=== PATIENT | male | born 1960 | race Caucasian/White ===

== ENCOUNTER 2019-04-13 14:33 | Inpatient (IN) | payer MEDICAID ==
[~2019-04-13] VITALS: Ht 172.7 cm; Wt 109.1 kg
[~2019-04-13 14:33] MED LIST: ACET-2119 PO; BUPR150T8 PO; CLON-371 PO; DULO-31 PO; FURO80TA87 PO; GABA600T13 PO; INSU100C10 SQ; LANTUS SUBCUT; LEVO88TA2 PO; LISI-600 PO; METF500T20 PO; METH-603 PO; METO-467 PO; PER10325T PO; SAXA5TAB PO; SERT50TA PO; SIMV-42 PO; SPIR50TA5 PO; TERA2CAP4 PO; TRAZ150T78 PO
[2019-04-13] MEDS ORDERED: TETanus/Pertussis (Acell)/Diphther VAC/PF (Tdap-Adult) 0.5ml syringe IM ONE (15:40)
[2019-04-13] MEDS ORDERED: normal saline 1000ML IV soln IVB ONE (15:40)
[2019-04-13] MEDS ORDERED: piperacillin/tazo 3.375gm/50ml 50 ML IV ONE (15:40)
[2019-04-13 16:26] LABS: BASOPHILS # (AUTO) 0.1 X10'3 (0-0.2); BASOPHILS % (AUTO) 0.6 % (0-1); EOSINOPHILS % (AUTO) 0.3 % (0-6); HEMOGLOBIN 11.5 g/dl (14.0-17.9); LYMPHOCYTES # (AUTO) 1.2 X10'3 (1.1-4.8); LYMPHOCYTES % (AUTO) 10.2 % (21-51); MEAN CORPUSCULAR HEMOGLOBIN 29.9 PG (27.0-31.0); MEAN CORPUSCULAR HGB CONC 33.7 g/dL (33.0-36.5); MEAN CORPUSCULAR VOLUME 88.7 FL (78-98); MEAN PLATELET VOLUME 7.4 FL (7.4-10.4); MONOCYTES # (AUTO) 1.1 X10'3 (0-0.9); MONOCYTES % (AUTO) 8.9 % (2-12); NEUTROPHILS # (AUTO) 9.5 X10'3 (1.8-7.7); PLATELET COUNT 262 X10'3 (140-440); RED BLOOD COUNT 3.84 X10'6 (4.70-6.10); RED CELL DISTRIBUTION WIDTH 12.9 % (11.5-14.5); WHITE BLOOD COUNT 11.8 X10'3 (4.5-11.0)
[2019-04-13 16:30] LABS: PARTIAL THROMBOPLASTIN TIME 31 SECONDS (22-32)
[2019-04-13 16:32] LABS: ALANINE AMINOTRANSFERASE 20 U/L (12-78); ALBUMIN 3.1 G/DL (3.4-5.0); ALBUMIN/GLOBULIN RATIO 0.6 (1.1-1.5); ALKALINE PHOSPHATASE 72 IU/L (46-116); ANION GAP 9 (8-16); ASPARTATE AMINO TRANSFERASE 18 U/L (10-37); BILIRUBIN,TOTAL 0.7 MG/DL (0.1-1.0); BLOOD UREA NITROGEN 30 MG/DL (7-18); BUN/CREATININE RATIO 17.1 (5.4-32.0); CALCIUM 9.2 MG/DL (8.5-10.1); CHLORIDE 95 MMOL/L (99-107); CREATININE 1.75 MG/DL (0.60-1.10); GLUCOSE 208 MG/DL (70-104); POTASSIUM 4.3 MMOL/L (3.5-5.1); SODIUM 131 MMOL/L (135-145); TOTAL CARBON DIOXIDE 27.5 MMOL/L (24-32); TOTAL PROTEIN 8.1 G/DL (6.4-8.2); eGFR 40 ML/MIN
[2019-04-13] MEDS ORDERED: HYDROcodone/acetaminophen 5mg/325mg tablet PO PRN (18:00)
[2019-04-13] MEDS ORDERED: magnesium 2GM in 50ml NS 50 ML IV PRN (18:00)
[2019-04-13] MEDS ORDERED: acetaminophen 325mg tablet PO PRN (18:00)
[2019-04-13] MEDS ORDERED: magnesium 4gm in 100ml NS 100 ML IV PRN (18:00)
[2019-04-13] MEDS ORDERED: morphine 2 MG/ML inj. syringe IV PRN (18:00)
[2019-04-13] MEDS ORDERED: potassium CL 10mEq/100ml bag 100 ML IV PRN ×2 (18:00)
[2019-04-13] MEDS ORDERED: ondansetron/PF 4mg/2ml inj IV PRN (18:00)
[2019-04-13] MEDS ORDERED: potassium Cl 20 mEq SR tablet PO PRN ×2 (18:00)
[2019-04-13] MEDS ORDERED: magnesium Cl slow-release 64mg tablet PO PRN (18:00)
[2019-04-13] MEDS ORDERED: OXYC-511 PO (18:09)
[2019-04-13] MEDS ORDERED: INSU100V9 SQ (18:09)
[2019-04-13] MEDS ORDERED: METO50TA16 PO (18:09)
[2019-04-13] MEDS ORDERED: LISI-604 PO (18:09)
[2019-04-13] MEDS ORDERED: DULO30CA52 PO (18:09)
[2019-04-13] MEDS ORDERED: BUPR150T6 PO (18:09)
[2019-04-13] MEDS ORDERED: GABA800T11 PO (18:09)
[2019-04-13] MEDS ORDERED: FURO40TA4 PO (18:09)
[2019-04-13] MEDS ORDERED: INSU100V43 SQ (18:09)
[2019-04-13] MEDS ORDERED: CLON-568 PO (18:09)
[2019-04-13] MEDS ORDERED: METF-950 PO (18:09)
[2019-04-13] MEDS: normal saline 1000ml 1,000 ML IV SCH (18:32)
--- NOTE | 2019-04-13 19:07 | NUR ---
Patient is laying comfortably on gurney, reports left foot pain 7/10. He just finished eating taco ortiz.
[2019-04-13] MEDS ORDERED: SERT100T PO (19:13)
[2019-04-13] MEDS: vancomycin/NS 1 GM ADD-VANTAGE 250 ML IV SCH (20:22)
[2019-04-13] MEDS: docusate sod 100mg capsule PO SCH (20:22)
--- NOTE | 2019-04-13 20:42 | NUR ---
pt urinated 700ml of urine.
[2019-04-14] VITALS: BP 116/69
[2019-04-14] MEDS: piperacillin/tazo 4.5gm/100ml 100 ML IV SCH ×3 (00:43→15:26)
[2019-04-14 05:03] LABS: BASOPHILS % (AUTO) 0.2 % (0-1); EOSINOPHILS # (AUTO) 0.1 X10'3 (0-0.9); HEMATOCRIT 33.7 % (42.0-52.0); HEMOGLOBIN 11.6 g/dl (14.0-17.9); LYMPHOCYTES # (AUTO) 1.5 X10'3 (1.1-4.8); LYMPHOCYTES % (AUTO) 19.1 % (21-51); MEAN CORPUSCULAR HEMOGLOBIN 30.3 PG (27.0-31.0); MEAN CORPUSCULAR HGB CONC 34.3 g/dL (33.0-36.5); MEAN CORPUSCULAR VOLUME 88.4 FL (78-98); MEAN PLATELET VOLUME 7.4 FL (7.4-10.4); MONOCYTES # (AUTO) 0.7 X10'3 (0-0.9); MONOCYTES % (AUTO) 9.5 % (2-12); NEUTROPHILS # (AUTO) 5.4 X10'3 (1.8-7.7); NEUTROPHILS % (AUTO) 70.2 % (42-75); PLATELET COUNT 239 X10'3 (140-440); RED BLOOD COUNT 3.81 X10'6 (4.70-6.10); RED CELL DISTRIBUTION WIDTH 12.7 % (11.5-14.5); WHITE BLOOD COUNT 7.7 X10'3 (4.5-11.0)
[2019-04-14 05:07] LABS: ALBUMIN 2.6 G/DL (3.4-5.0); ANION GAP 8 (8-16); BLOOD UREA NITROGEN 22 MG/DL (7-18); BUN/CREATININE RATIO 15.2 (5.4-32.0); CALCIUM 8.8 MG/DL (8.5-10.1); CHLORIDE 102 MMOL/L (99-107); CREATININE 1.45 MG/DL (0.60-1.10); GLUCOSE 166 MG/DL (70-104); MAGNESIUM 1.6 MG/DL (1.5-2.4); POTASSIUM 3.9 MMOL/L (3.5-5.1); SODIUM 138 MMOL/L (135-145); TOTAL CARBON DIOXIDE 28.1 MMOL/L (24-32); eGFR 50 ML/MIN
[2019-04-14 05:25] LABS: HEMOGLOBIN A1C 8.1 % (4.5-6.2)
--- NOTE | 2019-04-14 06:29 | NUR ---
Problems reprioritized. Patient report given, questions answered & plan of care reviewed with Linden LEMA.
--- NOTE | 2019-04-14 06:37 | NUR ---
At change of shift patient in room throwing his BSC into the hallway and upset that he is in pain and states "I haven't had my pain medication." eMAR records that patient had MS at 0400 by NOC shift RN. Patient wants to talk to administration, charge nurse Pao LEMA notified. Patient educated on the fact his hospitalist today will review his home medications and continue what he takes if needed. Patient is very impatient and makes comments that he will do this for that, bargains with staff and is noncompliant. [place] given for pain at this time.
--- NOTE | 2019-04-14 06:57 | NUR ---
Patient in room COURT 346. I have received report from PITA Cadena and had the opportunity to ask questions and assume patient care.
[2019-04-14 07:00] VITALS: BP 145/90
--- NOTE | 2019-04-14 07:22 | NUR ---
Patient in bed on right side lying position very tearful and crying and shivering c/o severe pain. Patient reports that he normally takes "20mg of percocet and then 6 hours later 20mg of methadone" but has not been able to receive here. Received from report that patient had been non compliant and would not review meds with noc RN. Patient reports that the [place] 5/325 1 tab has not been effective. Dr Ghosh called twice and both times calls were forwarded to voicemail. Dr. Ghosh also paged through paging system for hospitalists.
[2019-04-14] MEDS ORDERED: oxyCODONE/APAP 10/325mg tablet PO ONE ×3 (07:40→09:00)
[2019-04-14] MEDS: vancomycin/NS 1 GM ADD-VANTAGE 250 ML IV SCH (07:55)
--- NOTE | 2019-04-14 07:59 | NUR ---
Dr. Ghosh returned phone call and ordered to have percocet 10/325mg 1 tab po give now and if another dose is needed in 1 hr to give another dose. Let patient know and patient stated, " no fuck that. I'm getting out of here." Patient then agreed he will take it and stated, " you better be back here in one hour or i'm leaving." Patient refusing to have physical assessment completed.
[2019-04-14] MEDS: docusate sod 100mg capsule PO SCH ×2 (08:00→21:32)
[2019-04-14] MEDS: K and/or MAG REPLACEMENT MC SCH (08:00)
--- NOTE | 2019-04-14 08:09 | NUR ---
Patient now stating that he " the Dr better give me a damn good reason as to why I'm here or I'm leaving." Dr. Ghosh notified.
--- NOTE | 2019-04-14 08:12 | NUR ---
Patient refusing to have physical assessment done.
[2019-04-14] MEDS ORDERED: DULO60CA65 PO (08:31)
[2019-04-14] MEDS ORDERED: TIZA2TAB5 PO (08:31)
[2019-04-14] MEDS ORDERED: METH-603 PO (08:31)
--- NOTE | 2019-04-14 08:45 | NUR ---
Patient stating to call [facility] to verify patient's home meds. [facility] was called and meds reviewed. Per [facility] pharmacy patient takes Percocet 1 tab 10/325mg TID prn and Methadone 10 mg 1 tab TID PRN. Patient stating they are incorrect and wanting to call again. patient called again and now stating he Addendum: 04/14/19 at 0904 by Linden Donovan RN He is now stating he is taking "2 percocet at once and then 8hours from there I take 2 methadone's, but it's practically the same thing." Educated patient we can only give as ordered and that they are two different medications therefore it is not the same thing. Patient agreed.
[2019-04-14] MEDS ORDERED: clonazePAM 1mg tablet PO PRN (10:15)
[2019-04-14] MEDS ORDERED: buproprion 150mg XL (24-hour) tablet PO SCH (10:15)
--- NOTE | 2019-04-14 11:01 | NUR ---
DM consult: Pt with A1c 8.1 with reported insulin and Metformin in home meds per [facility]. Pt admit with DM foot ulcer to r/o osteomyelitis and currently c/o pain 7-10 per documentation. Per physical assessment pt resistive to care and agitated per RN notes. Pt would benefit from protein and DM education prior to discharge once stable to compliant with care. Will continue to follow. Addendum: 04/14/19 at [address] Amended: Links added.
[2019-04-14] MEDS: gabapentin 400mg capsule PO SCH ×2 (12:16→21:30)
[2019-04-14] MEDS: duloxetine 30mg CAPSULE.DR PO SCH (12:17)
[2019-04-14] MEDS: furosemide 40mg tablet PO SCH (12:17)
[2019-04-14] MEDS: methadone 10mg tablet PO SCH ×2 (12:17→21:32)
[2019-04-14 12:51] VITALS: BP 98/54
[2019-04-14] MEDS ORDERED: glucagon, human recombinant 1mg kit SUBCUT PRN (12:55)
[2019-04-14] MEDS ORDERED: dextrose ORAL solution 15 GM/59 ML bottle PO PRN ×2 (12:55)
[2019-04-14] MEDS ORDERED: MESSAGE TO PHARMACY PO ONE (12:55)
[2019-04-14] MEDS ORDERED: dextrose 50%-water 50ml dispensing syringe IV PRN ×2 (12:55)
[2019-04-14] MEDS: oxyCODONE/APAP 10/325mg tablet PO PRN (15:29)
[2019-04-14 18:00] VITALS: BP 116/79
--- NOTE | 2019-04-14 18:34 | NUR ---
Problems reprioritized. Patient report given, questions answered & plan of care reviewed with PITA BARNARD.
--- NOTE | 2019-04-14 18:35 | NUR ---
Patient in room COURT 346. I have received report from PITA Marino and had the opportunity to ask questions and assume patient care. Addendum: 04/14/19 at 2 by Ned Sosa RN Patient in room COURT 346. I have received report from PITA Cheatham and had the opportunity to ask questions and assume patient care.
[2019-04-14] MEDS: insulin Lispro (HumaLOG) vial - multi-dose SQ SCH (18:43)
[2019-04-14] MEDS: insulin glargine (Lantus) pen - multi-dose SQ SCH (21:27)
[2019-04-14] MEDS: buPROPion SR 150mg tablet PO SCH (21:30)
[2019-04-14] MEDS: Terazosin 1mg capsule PO SCH (21:31)
[2019-04-14] MEDS: atorvastatin 10mg tablet PO SCH (21:31)
[2019-04-14] MEDS: cyclobenzaprine 10mg tablet PO SCH (21:32)
[2019-04-14] MEDS: lactobacillus rhamnosus 10,000 MMU CELLS/CAPSULE PO SCH (21:32)
[2019-04-14] MEDS: metoprolol tartrate 50mg tablet PO SCH (21:32)
[2019-04-15] VITALS: BP 107/68
[2019-04-15] MEDS: piperacillin/tazo 4.5gm/100ml 100 ML IV SCH ×3 (00:09→15:24)
[2019-04-15] MEDS: oxyCODONE/APAP 10/325mg tablet PO PRN ×2 (00:11→15:22)
[2019-04-15 04:08] LABS: BASOPHILS % (AUTO) 0.3 % (0-1); EOSINOPHILS # (AUTO) 0.1 X10'3 (0-0.9); EOSINOPHILS % (AUTO) 1.5 % (0-6); HEMATOCRIT 35.3 % (42.0-52.0); HEMOGLOBIN 11.8 g/dl (14.0-17.9); LYMPHOCYTES # (AUTO) 1.7 X10'3 (1.1-4.8); LYMPHOCYTES % (AUTO) 23.3 % (21-51); MEAN CORPUSCULAR HEMOGLOBIN 29.8 PG (27.0-31.0); MEAN CORPUSCULAR HGB CONC 33.4 g/dL (33.0-36.5); MEAN CORPUSCULAR VOLUME 89.2 FL (78-98); MEAN PLATELET VOLUME 7.6 FL (7.4-10.4); MONOCYTES # (AUTO) 0.6 X10'3 (0-0.9); MONOCYTES % (AUTO) 7.8 % (2-12); NEUTROPHILS # (AUTO) 4.8 X10'3 (1.8-7.7); NEUTROPHILS % (AUTO) 67.1 % (42-75); PLATELET COUNT 257 X10'3 (140-440); RED BLOOD COUNT 3.95 X10'6 (4.70-6.10); RED CELL DISTRIBUTION WIDTH 12.9 % (11.5-14.5); WHITE BLOOD COUNT 7.2 X10'3 (4.5-11.0)
[2019-04-15 04:20] LABS: ALBUMIN 2.7 G/DL (3.4-5.0); ANION GAP 7 (8-16); BLOOD UREA NITROGEN 16 MG/DL (7-18); BUN/CREATININE RATIO 12.4 (5.4-32.0); CALCIUM 9.2 MG/DL (8.5-10.1); CHLORIDE 103 MMOL/L (99-107); CREATININE 1.29 MG/DL (0.60-1.10); GLUCOSE 115 MG/DL (70-104); MAGNESIUM 1.6 MG/DL (1.5-2.4); POTASSIUM 4.3 MMOL/L (3.5-5.1); SODIUM 142 MMOL/L (135-145); TOTAL CARBON DIOXIDE 31.8 MMOL/L (24-32); eGFR 57 ML/MIN
[2019-04-15] MEDS: normal saline 1000ml 1,000 ML IV SCH (05:56)
--- NOTE | 2019-04-15 06:30 | NUR ---
Patient in room COURT 346. I have received report from Ned and had the opportunity to ask questions and assume patient care.
[2019-04-15] MEDS: furosemide 40mg tablet PO SCH (07:49)
[2019-04-15] MEDS: lactobacillus rhamnosus 10,000 MMU CELLS/CAPSULE PO SCH ×2 (07:50→20:54)
[2019-04-15] MEDS: lisinopril 5mg tablet PO SCH (07:50)
[2019-04-15] MEDS: duloxetine 30mg CAPSULE.DR PO SCH ×2 (07:51→08:00)
[2019-04-15] MEDS: docusate sod 100mg capsule PO SCH ×2 (07:51→20:54)
[2019-04-15] MEDS: buPROPion SR 150mg tablet PO SCH ×2 (07:51→20:53)
[2019-04-15] MEDS: spironolactone 50 MG tablet PO SCH (07:51)
[2019-04-15 07:56] VITALS: BP 101/62
[2019-04-15] MEDS: K and/or MAG REPLACEMENT MC SCH (08:00)
[2019-04-15] MEDS: gabapentin 400mg capsule PO SCH ×3 (08:00→20:53)
[2019-04-15] MEDS: methadone 10mg tablet PO SCH ×3 (08:00→20:54)
[2019-04-15] MEDS: cyclobenzaprine 10mg tablet PO SCH ×2 (08:00→20:00)
[2019-04-15] MEDS: metoprolol tartrate 50mg tablet PO SCH ×2 (08:00→20:54)
[2019-04-15] MEDS: sertraline 50mg tablet PO SCH (08:00)
--- NOTE | 2019-04-15 10:12 | NUR ---
From 0600 to 0750 there was meditech down time. Cymbalta 60mg, gabapentin, methadone and sertraline for 0800 were administered and charted on paper.
[2019-04-15 11:40] VITALS: BP 115/60
[2019-04-15] MEDS: insulin Lispro (HumaLOG) vial - multi-dose SQ SCH ×2 (13:15→20:00)
--- NOTE | 2019-04-15 13:57 | NUR ---
Witnessed 8 units of Humalog administered to patient with SN Avtar and PITA Nogueira.
--- NOTE | 2019-04-15 18:39 | NUR ---
Problems reprioritized. Patient report given, questions answered & plan of care reviewed with Bette RN.
--- NOTE | 2019-04-15 18:40 | NUR ---
Student documentation: I have reviewed and agree with all interventions, assessments performed and documented by SN Avtar. Student Medication Administration: For this medication-pass time frame, all medication were reviewed, dispensed, administered and documented per hospital policy by SN Avtar.
--- NOTE | 2019-04-15 18:59 | NUR ---
Problems reprioritized. Patient report given, questions answered & plan of care reviewed with Pat.
[2019-04-15 19:30] VITALS: BP 100/69
[2019-04-15 20:35] VITALS: BP 110/70
[2019-04-15] MEDS: atorvastatin 10mg tablet PO SCH (20:54)
[2019-04-15] MEDS: Terazosin 1mg capsule PO SCH (20:59)
[2019-04-15] MEDS: insulin glargine (Lantus) pen - multi-dose SQ SCH (21:57)
[2019-04-16] VITALS: BP 105/70
[2019-04-16] MEDS: piperacillin/tazo 4.5gm/100ml 100 ML IV SCH ×3 (00:52→16:42)
[2019-04-16 07:29] LABS: BASOPHILS # (AUTO) 0.1 X10'3 (0-0.2); BASOPHILS % (AUTO) 0.7 % (0-1); EOSINOPHILS # (AUTO) 0.2 X10'3 (0-0.9); EOSINOPHILS % (AUTO) 2.1 % (0-6); HEMATOCRIT 35.1 % (42.0-52.0); HEMOGLOBIN 11.8 g/dl (14.0-17.9); LYMPHOCYTES # (AUTO) 1.8 X10'3 (1.1-4.8); LYMPHOCYTES % (AUTO) 23.2 % (21-51); MEAN CORPUSCULAR HEMOGLOBIN 29.9 PG (27.0-31.0); MEAN CORPUSCULAR HGB CONC 33.7 g/dL (33.0-36.5); MEAN CORPUSCULAR VOLUME 88.6 FL (78-98); MEAN PLATELET VOLUME 7.5 FL (7.4-10.4); MONOCYTES # (AUTO) 0.6 X10'3 (0-0.9); MONOCYTES % (AUTO) 7.5 % (2-12); NEUTROPHILS % (AUTO) 66.5 % (42-75); PLATELET COUNT 268 X10'3 (140-440); RED BLOOD COUNT 3.96 X10'6 (4.70-6.10); WHITE BLOOD COUNT 7.6 X10'3 (4.5-11.0)
[2019-04-16] MEDS ORDERED: VANCOMYCIN LEVEL IV ONE (07:30)
[2019-04-16 07:42] LABS: ALBUMIN 2.7 G/DL (3.4-5.0); ANION GAP 8 (8-16); BLOOD UREA NITROGEN 22 MG/DL (7-18); BUN/CREATININE RATIO 15.2 (5.4-32.0); CALCIUM 9.6 MG/DL (8.5-10.1); CHLORIDE 101 MMOL/L (99-107); CREATININE 1.45 MG/DL (0.60-1.10); GLUCOSE 128 MG/DL (70-104); MAGNESIUM 1.6 MG/DL (1.5-2.4); POTASSIUM 4.2 MMOL/L (3.5-5.1); SODIUM 139 MMOL/L (135-145); TOTAL CARBON DIOXIDE 30.2 MMOL/L (24-32); eGFR 50 ML/MIN
[2019-04-16 07:49] LABS: VANCOMYCIN,TROUGH 30.8 UG/ML (6.0-14.0)
[2019-04-16 08:00] VITALS: BP 116/76
[2019-04-16] MEDS: spironolactone 50 MG tablet PO SCH (08:00)
[2019-04-16] MEDS: lisinopril 5mg tablet PO SCH (08:00)
[2019-04-16] MEDS: duloxetine 30mg CAPSULE.DR PO SCH ×2 (08:00→08:17)
[2019-04-16] MEDS: furosemide 40mg tablet PO SCH (08:00)
[2019-04-16] MEDS: K and/or MAG REPLACEMENT MC SCH (08:00)
[2019-04-16] MEDS: buPROPion SR 150mg tablet PO SCH ×2 (08:16→19:43)
[2019-04-16] MEDS: sertraline 50mg tablet PO SCH (08:16)
[2019-04-16] MEDS: docusate sod 100mg capsule PO SCH ×2 (08:16→19:43)
[2019-04-16] MEDS: gabapentin 400mg capsule PO SCH ×3 (08:16→22:02)
[2019-04-16] MEDS: lactobacillus rhamnosus 10,000 MMU CELLS/CAPSULE PO SCH ×2 (08:16→19:44)
[2019-04-16] MEDS: cyclobenzaprine 10mg tablet PO SCH ×2 (08:17→19:43)
[2019-04-16] MEDS: methadone 10mg tablet PO SCH ×3 (08:17→22:02)
[2019-04-16] MEDS: metoprolol tartrate 50mg tablet PO SCH ×2 (08:36→19:44)
--- NOTE | 2019-04-16 10:42 | NUR ---
TOld by tech that patient was seen chewing tobacco, educated patient on not using this substance in the hospital and he agreed and stated that he didnt have anymore. While doing vitals tech said patients HR was 140, I went to assess the patient and his HR was 77 and he was asymptomatic and stated " I have a chronic arrythmia condition that comes and goes". Patient denies hx of afibb but, states he has been in SVT before. Patient was given metoprolol this am. MD and charge nurse aware of this condition and its stated in his HX in the chart. Patient is currently not on tele per dr lynch. I will address this with her again. Will continue to monitor.
--- NOTE | 2019-04-16 11:14 | NUR ---
PAGER ID: [phone] MESSAGE: just confirming you do not want 346B on tele, hx of SVT and has had elevated HR a few times this shift but, asymptomatic current rate is 77
--- NOTE | 2019-04-16 11:45 | NUR ---
contacted dr morton on behalf of patient day two after consult and he has not seen Kenneth yet so he is getting frustrated. Davina advised me to call so I left Kenneth a message and updated patient.
[2019-04-16] MEDS: insulin Lispro (HumaLOG) vial - multi-dose SQ SCH ×2 (13:37→19:40)
[2019-04-16 18:00] VITALS: BP 173/97
--- NOTE | 2019-04-16 18:36 | NUR ---
Patient in room COURT 346. I have received report from Mack LEMA and had the opportunity to ask questions and assume patient care. patient is sleeping and shows no sign of distress.
[2019-04-16] MEDS: vancomycin/NS 1 GM ADD-VANTAGE 250 ML IV SCH (19:43)
[2019-04-16] MEDS: oxyCODONE/APAP 10/325mg tablet PO PRN (20:00)
[2019-04-16] MEDS: Terazosin 1mg capsule PO SCH (22:01)
[2019-04-16] MEDS: atorvastatin 10mg tablet PO SCH (22:02)
[2019-04-16] MEDS: insulin glargine (Lantus) pen - multi-dose SQ SCH (22:09)
[2019-04-17] VITALS: BP 128/66
[2019-04-17] MEDS: piperacillin/tazo 4.5gm/100ml 100 ML IV SCH ×2 (00:55→08:36)
[2019-04-17] MEDS: normal saline 1000ml 1,000 ML IV SCH (02:56)
[2019-04-17 04:27] LABS: BASOPHILS % (AUTO) 0.3 % (0-1); EOSINOPHILS # (AUTO) 0.2 X10'3 (0-0.9); EOSINOPHILS % (AUTO) 2.2 % (0-6); HEMATOCRIT 34.4 % (42.0-52.0); HEMOGLOBIN 11.7 g/dl (14.0-17.9); LYMPHOCYTES # (AUTO) 1.7 X10'3 (1.1-4.8); LYMPHOCYTES % (AUTO) 24.4 % (21-51); MEAN CORPUSCULAR HEMOGLOBIN 30.1 PG (27.0-31.0); MEAN CORPUSCULAR HGB CONC 33.9 g/dL (33.0-36.5); MEAN CORPUSCULAR VOLUME 88.6 FL (78-98); MEAN PLATELET VOLUME 7.4 FL (7.4-10.4); MONOCYTES # (AUTO) 0.5 X10'3 (0-0.9); MONOCYTES % (AUTO) 7.5 % (2-12); NEUTROPHILS # (AUTO) 4.6 X10'3 (1.8-7.7); NEUTROPHILS % (AUTO) 65.6 % (42-75); PLATELET COUNT 290 X10'3 (140-440); RED BLOOD COUNT 3.89 X10'6 (4.70-6.10); RED CELL DISTRIBUTION WIDTH 12.7 % (11.5-14.5); WHITE BLOOD COUNT 6.9 X10'3 (4.5-11.0)
[2019-04-17 04:46] LABS: ALBUMIN 2.6 G/DL (3.4-5.0); ANION GAP 5 (8-16); BLOOD UREA NITROGEN 24 MG/DL (7-18); BUN/CREATININE RATIO 15.2 (5.4-32.0); CHLORIDE 103 MMOL/L (99-107); CREATININE 1.58 MG/DL (0.60-1.10); GLUCOSE 164 MG/DL (70-104); MAGNESIUM 1.7 MG/DL (1.5-2.4); POTASSIUM 4.4 MMOL/L (3.5-5.1); SODIUM 138 MMOL/L (135-145); TOTAL CARBON DIOXIDE 29.7 MMOL/L (24-32); eGFR 45 ML/MIN
--- NOTE | 2019-04-17 06:33 | NUR ---
Problems reprioritized. Patient report given, questions answered & plan of care reviewed with Marshall LEMA.
--- NOTE | 2019-04-17 06:39 | NUR ---
Patient in room COURT 346. I have received report from Tiarra LEMA and had the opportunity to ask questions and assume patient care.
[2019-04-17 07:00] VITALS: BP 104/57
[2019-04-17] MEDS: K and/or MAG REPLACEMENT MC SCH (08:00)
[2019-04-17] MEDS: duloxetine 30mg CAPSULE.DR PO SCH ×2 (08:00→08:21)
[2019-04-17] MEDS: spironolactone 50 MG tablet PO SCH (08:20)
[2019-04-17] MEDS: docusate sod 100mg capsule PO SCH (08:20)
[2019-04-17] MEDS: vancomycin/NS 1 GM ADD-VANTAGE 250 ML IV SCH (08:20)
[2019-04-17] MEDS: buPROPion SR 150mg tablet PO SCH (08:20)
[2019-04-17] MEDS: sertraline 50mg tablet PO SCH (08:21)
[2019-04-17] MEDS: lisinopril 5mg tablet PO SCH (08:21)
[2019-04-17] MEDS: lactobacillus rhamnosus 10,000 MMU CELLS/CAPSULE PO SCH (08:21)
[2019-04-17] MEDS: cyclobenzaprine 10mg tablet PO SCH (08:21)
[2019-04-17] MEDS: methadone 10mg tablet PO SCH (08:21)
[2019-04-17] MEDS: gabapentin 400mg capsule PO SCH (08:21)
[2019-04-17] MEDS: insulin Lispro (HumaLOG) vial - multi-dose SQ SCH (08:40)
--- NOTE | 2019-04-17 10:58 | NUR ---
Dr. Cooper seen patient, patient wanted to go home. Dr. Cooper said he is okay for patient to go home today and patient will need to come back to the hospital for his surgery on Saturday04/21/19
[2019-04-17 11:00] VITALS: BP 120/77
--- NOTE | 2019-04-17 11:00 | NUR ---
Paged Dr. Edwards to let him know about Dr. Kenneth nicole with patient go home today.
[2019-04-17 11:27] VITALS: BP_SYST 120
[2019-04-17] MEDS: furosemide 40mg tablet PO SCH (11:27)
[2019-04-17] MEDS: metoprolol tartrate 50mg tablet PO SCH (11:27)
[2019-04-17] MEDS: oxyCODONE/APAP 10/325mg tablet PO PRN (11:29)
[2019-04-17] MEDS ORDERED: LACT1CAP26 PO (12:06)
[2019-04-17] MEDS ORDERED: AMOX-422 PO (12:08)
[2019-04-17] MEDS ORDERED: DOXY100C2 PO (12:08)
--- NOTE | 2019-04-17 13:15 | NUR ---
DIABETIC FOOT CARE EDUCATION PROVIDED BY WOUND CARE * Wash your feet daily with lukewarm water and soap. * Dry your feet well, especially between the toes. * Keep the skin moisturized with lotion, but do not apply it between the toes. * Check your feet for blisters, cuts or sores. * Use an emery board to shape your toenails even with the ends of your toes. * Change daily into clean, soft socks or stockings, not too big or too small. * Keep your feet warm and dry. * Preferably wear special padded socks and shoes that fit well. * Never walk barefoot indoors or outdoors. * Examine your shoes everyday for cracks, luis a, nails or anything that could hurt your feet. * Tell your doctor if you find any of these problems or have any concerns after examining your feet. Addendum: 04/17/19 at 1316 by Porsche Quintero RN Amended: Links added.
--- NOTE | 2019-04-17 14:20 | NUR ---
Discharge patient home, discharge instructions given to patient. Patient verbalized understanding of all instructions made. Peripheral IV catheter removed, tip intact. Wound dressing on the left foot changed, wound photo taken with patient's permission. New prescriptions called in to [facility]. Instructed patient to ensure he has all his belongings with him before leaving
[2019-04-17] MEDS ORDERED: piperacillin/tazo 3.375gm/50ml 50 ML IV SCH (16:00)
[2019-04-18] MEDS ORDERED: VANCOMYCIN LEVEL IV ONE (07:30)
== END 2019-04-17 14:20 | disposition home or self-care (01) | DRG 344 ==
LOC: ER 14:34 → ED HOLD 18:22 → SUR 3N 22:05 → CMPBEDREQ 22:42 → SUR 3N 04-16 02:21
PROVIDERS: ADMIT Internal Medicine; ATTEND Hospitalist
PROC: BQ3HYZZ Magnetic Resonance Imaging (MRI) of Left Ankle using Other Contrast (ICD-10-PCS; principal; 2019-04-16)
DX: E11.69 Type 2 diabetes mellitus with other specified complication (principal); M86.8X7 Other osteomyelitis, ankle and foot; N17.9 Acute kidney failure, unspecified; E11.22 Type 2 diabetes mellitus with diabetic chronic kidney disease; E11.621 Type 2 diabetes mellitus with foot ulcer; L03.116 Cellulitis of left lower limb; E11.42 Type 2 diabetes mellitus with diabetic polyneuropathy; E66.01 Morbid (severe) obesity due to excess calories; M60.872 Other myositis, left ankle and foot; L97.529 Non-pressure chronic ulcer of other part of left foot with unspecified severity; B95.62 Methicillin resistant Staphylococcus aureus infection as the cause of diseases classified elsewhere; E11.610 Type 2 diabetes mellitus with diabetic neuropathic arthropathy; E11.65 Type 2 diabetes mellitus with hyperglycemia; N18.9 Chronic kidney disease, unspecified; N40.0 Benign prostatic hyperplasia without lower urinary tract symptoms; F41.8 Other specified anxiety disorders; M54.9 Dorsalgia, unspecified; E78.00 Pure hypercholesterolemia, unspecified; E78.5 Hyperlipidemia, unspecified; E87.1 Hypo-osmolality and hyponatremia; G89.29 Other chronic pain; I12.9 Hypertensive chronic kidney disease with stage 1 through stage 4 chronic kidney disease, or unspecified chronic kidney disease; M17.10 Unilateral primary osteoarthritis, unspecified knee; M21.42 Flat foot [pes planus] (acquired), left foot; Z79.4 Long term (current) use of insulin; Z88.2 Allergy status to sulfonamides; Z68.36 Body mass index [BMI] 36.0-36.9, adult; Z99.3 Dependence on wheelchair; Z79.899 Other long term (current) drug therapy
CPT/HCPCS: 36415; 71045; 73630; 73723; 80048; 80053; 80202; 82948; 83036; 83605; 83735; 84145; 84484; 85025; 85610; 85730; 87040; 87070; 87077; 87081; 87186; 90471; 96365; 99285; G0378; J1815; J2270; J2543; J3370; J7030

== ENCOUNTER 2019-04-21 09:03 | Inpatient (IN) | payer MEDICAID ==
[~2019-04-21] VITALS: Ht 175.3 cm; Wt 109.1 kg
[2019-04-21] VITALS (17 sets, daily range): BP systolic 107–152; BP diastolic 61–92
[~2019-04-21 09:03] MED LIST changes: -ACET-2119 PO; +AMOX-422 PO; +BUPR150T6 PO; -BUPR150T8 PO; -CLON-371 PO; +CLON-568 PO; +DOXY100C2 PO; -DULO-31 PO; +DULO30CA52 PO; +DULO60CA65 PO; -FURO80TA87 PO; -GABA600T13 PO; +GABA800T11 PO; -INSU100C10 SQ; +INSU100V43 SQ; +INSU100V9 SQ; +LACT1CAP26 PO; -LANTUS SUBCUT; -LEVO88TA2 PO; -LISI-600 PO; -METF500T20 PO; -METO-467 PO; +METO50TA16 PO; +OXYC-511 PO; -PER10325T PO; +SERT100T PO; -SERT50TA PO; -SPIR50TA5 PO; +TIZA2TAB5 PO; -TRAZ150T78 PO
[2019-04-21 09:57] LABS: BASOPHILS % (AUTO) 0.5 % (0-1); EOSINOPHILS # (AUTO) 0.1 X10'3 (0-0.9); EOSINOPHILS % (AUTO) 1.5 % (0-6); HEMATOCRIT 36.8 % (42.0-52.0); HEMOGLOBIN 12.6 g/dl (14.0-17.9); LYMPHOCYTES # (AUTO) 1.7 X10'3 (1.1-4.8); MEAN CORPUSCULAR HEMOGLOBIN 30.1 PG (27.0-31.0); MEAN CORPUSCULAR HGB CONC 34.1 g/dL (33.0-36.5); MEAN CORPUSCULAR VOLUME 88.3 FL (78-98); MEAN PLATELET VOLUME 7.5 FL (7.4-10.4); MONOCYTES # (AUTO) 0.5 X10'3 (0-0.9); MONOCYTES % (AUTO) 5.3 % (2-12); NEUTROPHILS # (AUTO) 6.6 X10'3 (1.8-7.7); NEUTROPHILS % (AUTO) 73.7 % (42-75); PLATELET COUNT 325 X10'3 (140-440); RED BLOOD COUNT 4.17 X10'6 (4.70-6.10); RED CELL DISTRIBUTION WIDTH 12.6 % (11.5-14.5)
[2019-04-21 10:12] LABS: ALANINE AMINOTRANSFERASE 35 U/L (12-78); ALBUMIN 3.1 G/DL (3.4-5.0); ALBUMIN/GLOBULIN RATIO 0.6 (1.1-1.5); ALKALINE PHOSPHATASE 184 IU/L (46-116); ANION GAP 7 (8-16); ASPARTATE AMINO TRANSFERASE 21 U/L (10-37); BILIRUBIN,TOTAL 0.3 MG/DL (0.1-1.0); BLOOD UREA NITROGEN 22 MG/DL (7-18); BUN/CREATININE RATIO 18.6 (5.4-32.0); CALCIUM 9.4 MG/DL (8.5-10.1); CHLORIDE 103 MMOL/L (99-107); CREATININE 1.18 MG/DL (0.60-1.10); GLUCOSE 174 MG/DL (70-104); POTASSIUM 4.1 MMOL/L (3.5-5.1); SODIUM 138 MMOL/L (135-145); TOTAL CARBON DIOXIDE 28.2 MMOL/L (24-32); TOTAL PROTEIN 8.5 G/DL (6.4-8.2); eGFR 63 ML/MIN
[2019-04-21] MEDS ORDERED: potassium CL 10mEq/100ml bag 100 ML IV PRN ×2 (10:30)
[2019-04-21] MEDS ORDERED: HYDROcodone/acetaminophen 5mg/325mg tablet PO PRN (10:30)
[2019-04-21] MEDS ORDERED: metoclopramide 5 mg/ml inj IV PRN (10:30)
[2019-04-21] MEDS ORDERED: magnesium hydroxide 30ml (MOM) UD suspension PO PRN (10:30)
[2019-04-21] MEDS ORDERED: mag hydrox/Alum hydrox/simeth 30ml oral suspension PO PRN (10:30)
[2019-04-21] MEDS ORDERED: ondansetron/PF 4mg/2ml inj IV PRN ×2 (10:30→14:00)
[2019-04-21] MEDS ORDERED: acetaminophen 325mg tablet PO PRN ×2 (10:30)
[2019-04-21] MEDS ORDERED: potassium Cl 20 mEq SR tablet PO PRN ×2 (10:30)
[2019-04-21] MEDS ORDERED: HYDROcodone/acetaminophen 10/325mg tab PO PRN (10:30)
[2019-04-21] MEDS ORDERED: acetaminophen 650mg rectal suppository RC PRN (10:30)
[2019-04-21] MEDS ORDERED: HYDROmorphone 1 mg/ml syringe IV PRN (10:30)
[2019-04-21] MEDS ORDERED: magnesium 4gm in 100ml NS 100 ML IV PRN (10:30)
[2019-04-21] MEDS ORDERED: HYDROmorphone inj. 0.5 MG/0.5 ML DISP.SYRIN IV PRN (10:30)
[2019-04-21] MEDS ORDERED: magnesium 2GM in 50ml NS 50 ML IV PRN (10:30)
[2019-04-21] MEDS ORDERED: bisacodyl 10mg suppository rectal RC PRN (10:30)
[2019-04-21] MEDS ORDERED: glucagon, human recombinant 1mg kit SUBCUT PRN (10:35)
[2019-04-21] MEDS ORDERED: insulin Lispro (HumaLOG) vial - multi-dose SQ SCH (10:35)
[2019-04-21] MEDS ORDERED: dextrose ORAL solution 15 GM/59 ML bottle PO PRN ×2 (10:35)
[2019-04-21] MEDS ORDERED: dextrose 50%-water 50ml dispensing syringe IV PRN ×2 (10:35)
[2019-04-21] MEDS ORDERED: MESSAGE TO PHARMACY PO ONE (10:35)
[2019-04-21] MEDS: ringers solution, lacted 1,000 ML IV SCH ×2 (10:48→22:30)
--- NOTE | 2019-04-21 11:45 | NUR ---
Received patient to room 355A via gurney accompanied by x1 staff and visitor. Patient is alert and oriented and c/o pain to right leg. Oriented to room and call light. Call light in reach.
[2019-04-21] MEDS ORDERED: oxyCODONE/APAP 10/325mg tablet PO PRN (13:00)
[2019-04-21] MEDS ORDERED: clonazePAM 1mg tablet PO PRN (13:00)
[2019-04-21] MEDS: gabapentin 400mg capsule PO SCH ×2 (13:00→20:38)
[2019-04-21 13:28] LABS: CLARITY,URINE SLIGHTLY CLOUDY (Clear); COLOR,URINE YELLOW (Yellow); GLUCOSE, URINE NEGATIVE (Neg); KETONES,URINE NEGATIVE (Neg); LEUKOCYTE ESTERASE ,URINE NEGATIVE (Neg); NITRITES, URINE NEGATIVE (Neg); OCCULT BLOOD,URINE NEGATIVE (Neg); PROTEIN,URINE NEGATIVE (Neg); UROBILINOGEN,URINE 0.2 E.U/dL (0.2-1.0)
--- NOTE | 2019-04-21 13:32 | NUR ---
CALLED REPORT TO SELMA SANTOYO RN.
[2019-04-21 13:34] LABS: UA COLLECTION TYPE NON-SPECIFIED
[2019-04-21 13:35] LABS: HYALINE CASTS 0-3 /LPF (NEGATIVE); MUCUS STRANDS MODERATE /LPF (Neg); SQUAMOUS EPITHELIAL CELL,UR MODERATE /LPF (FEW)
[2019-04-21 13:36] LABS: BACTERIA,URINE FEW /HPF (Neg); RBC,URINE 0-2 /HPF (0-2); WBC,URINE 0-4 /HPF (0-4)
[2019-04-21 13:37] LABS: PARTIAL THROMBOPLASTIN TIME 29 SECONDS (22-32)
--- NOTE | 2019-04-21 13:38 | NUR ---
PATIENT DOWN TO OR.
[2019-04-21] MEDS ORDERED: ringers solution, lacted 1,000 ML IV SCH (13:56)
[2019-04-21] MEDS ORDERED: proCHLORperazine 10 MG/2 ml inj IV PRN (14:00)
[2019-04-21] MEDS ORDERED: morphine 4 MG/ML inj SYRINge IV PRN ×2 (14:00)
[2019-04-21] MEDS ORDERED: meperidine/PF 25mg/ml syringe IV PRN ×3 (14:00)
[2019-04-21] MEDS ORDERED: tetracaine 1% (10mg/ml) pres. free inj. ONE (14:02)
[2019-04-21] MEDS ORDERED: FURO40TA4 PO (14:16)
[2019-04-21] MEDS ORDERED: SPIR50TA5 PO (14:16)
[2019-04-21] MEDS ORDERED: METF-950 PO (14:16)
[2019-04-21] MEDS ORDERED: DILT180C53 PO (14:16)
[2019-04-21] MEDS ORDERED: LISI-604 PO (14:16)
[2019-04-21] MEDS ORDERED: sevoflurane 250ml liquid IH ONE (14:17)
[2019-04-21] MEDS ORDERED: MIDAZolam 1mg/ml 10ml vial ONE (14:22)
[2019-04-21] MEDS ORDERED: fentaNYL/PF 50MCG/1 ML 2ML syringe ONE (14:22)
--- NOTE | 2019-04-21 16:00 | NUR ---
ADMITTED TO PACU FROM OR ACCOMPANIED BY ANESTHESIA. INTIAL PHYSICAL ASSESSMENT DONE AND RECORDED. REPORT RECEIVED FROM ANESTHESIA.
--- NOTE | 2019-04-21 17:00 | NUR ---
PACU DISCHARGE CRITERIA MET, REPORT GIVEN TO FLOOR. DENIES PAIN OR DISCOMFORT, TRANSFERRED TO ROOM IN STABLE GOOD CONDITION.
--- NOTE | 2019-04-21 17:17 | NUR ---
Patient returned to room 351 A&O. Denies any pain or discomfort. VSS. Post op vitals initiated. Jama catheter draining to gravity with clear, yellow urine. Call light within reach.
--- NOTE | 2019-04-21 18:16 | NUR ---
Problems reprioritized. Patient report given, questions answered & plan of care reviewed with PITA Cadena.
--- NOTE | 2019-04-21 18:54 | NUR ---
Patient in room COURT 351. I have received report from Linden LEMA and had the opportunity to ask questions and assume patient care. Pt sitting up i bed eating dinner with no signs of distress. Will continue to monitor.
[2019-04-21] MEDS ORDERED: cyclobenzaprine 10mg tablet PO PRN (20:00)
[2019-04-21] MEDS: atorvastatin 10mg tablet PO SCH (20:38)
[2019-04-21] MEDS: heparin, porcine 5000 units/ml vial SQ SCH (20:38)
[2019-04-21] MEDS: metoprolol tartrate 25mg tablet PO SCH (20:39)
[2019-04-21] MEDS: Terazosin 1mg capsule PO SCH (20:39)
[2019-04-21] MEDS: insulin glargine (Lantus) pen - multi-dose SQ SCH (20:40)
[2019-04-21] MEDS ORDERED: INSULIN GLARGINE HUM REC ANLOG 40 UNIT SQ SCH (21:00)
[2019-04-21] MEDS ORDERED: temazepam 15mg capsule PO PRN (21:00)
[2019-04-21] MEDS ORDERED: normal saline 1000ml 1,000 ML IV SCH (21:31)
[2019-04-21] MEDS ORDERED: CADD PCA waste documentation MC PRN (21:35)
[2019-04-21] MEDS ORDERED: naloxone 0.4 mg/ml inj IV PRN (21:35)
[2019-04-21] MEDS: HYDROmorphone/NS 1 mg/ml CADD 50 ML IV SCH ×2 (22:04→23:00)
[2019-04-22] VITALS: BP 145/86
--- NOTE | 2019-04-22 00:20 | NUR ---
Pt complaining of pain 03/26. Increased CADD from standard settings to .30. CADD setting change done and verified with charge nurse Jackie LEMA and documented in the [facility].
[2019-04-22] MEDS: HYDROmorphone/NS 1 mg/ml CADD 50 ML IV SCH ×11 (03:00→23:00)
[2019-04-22 04:25] VITALS: BP 156/90
[2019-04-22 04:55] LABS: BASOPHILS % (AUTO) 0.4 % (0-1); EOSINOPHILS % (AUTO) 0.3 % (0-6); HEMATOCRIT 34.6 % (42.0-52.0); HEMOGLOBIN 11.8 g/dl (14.0-17.9); LYMPHOCYTES # (AUTO) 1.3 X10'3 (1.1-4.8); LYMPHOCYTES % (AUTO) 14.1 % (21-51); MEAN CORPUSCULAR HEMOGLOBIN 30.2 PG (27.0-31.0); MEAN CORPUSCULAR HGB CONC 34.2 g/dL (33.0-36.5); MEAN CORPUSCULAR VOLUME 88.2 FL (78-98); MEAN PLATELET VOLUME 7.5 FL (7.4-10.4); MONOCYTES # (AUTO) 0.5 X10'3 (0-0.9); MONOCYTES % (AUTO) 5.7 % (2-12); NEUTROPHILS # (AUTO) 7.4 X10'3 (1.8-7.7); NEUTROPHILS % (AUTO) 79.5 % (42-75); PLATELET COUNT 273 X10'3 (140-440); RED BLOOD COUNT 3.92 X10'6 (4.70-6.10); RED CELL DISTRIBUTION WIDTH 12.7 % (11.5-14.5); WHITE BLOOD COUNT 9.3 X10'3 (4.5-11.0)
[2019-04-22 05:12] LABS: ALANINE AMINOTRANSFERASE 39 U/L (12-78); ALBUMIN 2.9 G/DL (3.4-5.0); ALBUMIN/GLOBULIN RATIO 0.6 (1.1-1.5); ALKALINE PHOSPHATASE 143 IU/L (46-116); ANION GAP 6 (8-16); ASPARTATE AMINO TRANSFERASE 36 U/L (10-37); BILIRUBIN,TOTAL 0.4 MG/DL (0.1-1.0); BLOOD UREA NITROGEN 15 MG/DL (7-18); BUN/CREATININE RATIO 14.7 (5.4-32.0); CALCIUM 9.1 MG/DL (8.5-10.1); CHLORIDE 102 MMOL/L (99-107); CREATININE 1.02 MG/DL (0.60-1.10); GLUCOSE 197 MG/DL (70-104); MAGNESIUM 1.3 MG/DL (1.5-2.4); PHOSPHORUS 3.4 MG/DL (2.3-4.5); POTASSIUM 4.5 MMOL/L (3.5-5.1); SODIUM 135 MMOL/L (135-145); TOTAL CARBON DIOXIDE 26.9 MMOL/L (24-32); TOTAL PROTEIN 7.8 G/DL (6.4-8.2); eGFR 74 ML/MIN
--- NOTE | 2019-04-22 06:37 | NUR ---
Problems reprioritized. Patient report given, questions answered & plan of care reviewed with Mariely LEMA.
[2019-04-22 07:00] VITALS: BP 163/86
--- NOTE | 2019-04-22 07:04 | NUR ---
Patient in room COURT 351. I have received report from DAYRON LEMA and had the opportunity to ask questions and assume patient care.
[2019-04-22] MEDS: K and/or MAG REPLACEMENT MC SCH (07:26)
[2019-04-22] MEDS: docusate sod 100mg capsule PO SCH ×2 (07:49→20:13)
[2019-04-22] MEDS: magnesium Cl slow-release 64mg tablet PO PRN ×2 (07:50→20:13)
[2019-04-22] MEDS: duloxetine 30mg CAPSULE.DR PO SCH (07:50)
[2019-04-22] MEDS: metoprolol tartrate 25mg tablet PO SCH ×2 (07:52→20:13)
[2019-04-22] MEDS: gabapentin 400mg capsule PO SCH ×3 (07:53→20:12)
[2019-04-22] MEDS: sennosides/docusate sodium tablet PO SCH ×2 (07:54→20:13)
[2019-04-22] MEDS: linagliptin 5mg tablet PO SCH (07:55)
[2019-04-22] MEDS: buproprion 150mg XL (24-hour) tablet PO SCH (07:56)
[2019-04-22] MEDS: sertraline 50mg tablet PO SCH (07:56)
[2019-04-22] MEDS ORDERED: duloxetine 30mg CAPSULE.DR PO SCH ×2 (08:00)
[2019-04-22] MEDS ORDERED: methadone 10mg tablet PO SCH (08:00)
[2019-04-22] MEDS: heparin, porcine 5000 units/ml vial SQ SCH ×2 (08:01→20:14)
[2019-04-22] MEDS: ringers solution, lacted 1,000 ML IV SCH ×3 (10:10→20:09)
[2019-04-22] MEDS ORDERED: LORazepam 2 mg/ml vial IV PRN (10:25)
[2019-04-22 11:34] VITALS: BP 164/101
--- NOTE | 2019-04-22 12:08 | NUR ---
PATIENT SEEN BY dR Harden ,cADD RATE INCREASED TO 0.2MG CONT WITH DEMNAND DOSE OF 0.3MG. . PATIENT ALSO SEEN BY dr Schaefer. tORADOL ORDERED AND ATIVAN SEE emar. wILL CONTINUE TO MONITOR PT.
[2019-04-22] MEDS ORDERED: HYDROmorphone/NS 1 mg/ml CADD 50 ML IV SCH (13:00)
--- NOTE | 2019-04-22 13:54 | NUR ---
Attempts and med given was erased on cadd during change in settings. patient still needs to be encouraged to press button on cadd. Appears little more comfortable.
[2019-04-22] MEDS ORDERED: ketorolac trometh. 30mg/ml inj. IV SCH (14:00)
[2019-04-22] MEDS: ketorolac trometh. 30mg/ml inj. IV PRN (14:53)
--- NOTE | 2019-04-22 15:22 | NUR ---
DM Consult: Pt s/p L BKA hx T2DM A1C 7.9. Pt seen by RD for written DM/high protein eds w/ RD contact information provided. Pt in too much pain during RD visit for verbal review; written eds left at bedside. Pt PO 100% carb controlled diet but refused this AM r/t pain. LBM 04/20 receiving colace and senna. Pt reports good appetite and eating until full. Will continue to monitor. Rec: 1. continue carb controlled diet 2. monitor for ONS needs 3. routine bowel care 4. wt per rx Addendum: 04/22/19 at [address] Amended: Links added.
[2019-04-22] MEDS ORDERED: gabapentin 400mg capsule PO SCH (16:00)
--- NOTE | 2019-04-22 18:48 | NUR ---
Problems reprioritized. Patient report given, questions answered & plan of care reviewed with raquel morales.
--- NOTE | 2019-04-22 19:02 | NUR ---
Patient in room COURT 351. I have received report from Mariely LEMA and had the opportunity to ask questions and assume patient care.
[2019-04-22] MEDS: atorvastatin 10mg tablet PO SCH (20:13)
[2019-04-22] MEDS: Terazosin 1mg capsule PO SCH (20:13)
[2019-04-22 20:37] VITALS: BP 136/81
[2019-04-22] MEDS: insulin glargine (Lantus) pen - multi-dose SQ SCH (21:00)
[2019-04-23] VITALS: BP 129/79
[2019-04-23] MEDS: HYDROmorphone/NS 1 mg/ml CADD 50 ML IV SCH ×12 (01:00→23:00)
[2019-04-23 05:46] LABS: BASOPHILS % (AUTO) 0.5 % (0-1); EOSINOPHILS # (AUTO) 0.1 X10'3 (0-0.9); EOSINOPHILS % (AUTO) 1.6 % (0-6); HEMOGLOBIN 11.6 g/dl (14.0-17.9); LYMPHOCYTES # (AUTO) 1.6 X10'3 (1.1-4.8); LYMPHOCYTES % (AUTO) 20.2 % (21-51); MEAN CORPUSCULAR HEMOGLOBIN 30.6 PG (27.0-31.0); MEAN CORPUSCULAR HGB CONC 35.1 g/dL (33.0-36.5); MEAN CORPUSCULAR VOLUME 87.1 FL (78-98); MEAN PLATELET VOLUME 7.6 FL (7.4-10.4); MONOCYTES # (AUTO) 0.7 X10'3 (0-0.9); NEUTROPHILS # (AUTO) 5.6 X10'3 (1.8-7.7); NEUTROPHILS % (AUTO) 68.7 % (42-75); PLATELET COUNT 275 X10'3 (140-440); RED BLOOD COUNT 3.79 X10'6 (4.70-6.10); RED CELL DISTRIBUTION WIDTH 12.8 % (11.5-14.5); WHITE BLOOD COUNT 8.1 X10'3 (4.5-11.0)
[2019-04-23 06:06] LABS: ALANINE AMINOTRANSFERASE 24 U/L (12-78); ALBUMIN 2.6 G/DL (3.4-5.0); ALBUMIN/GLOBULIN RATIO 0.5 (1.1-1.5); ALKALINE PHOSPHATASE 113 IU/L (46-116); ANION GAP 7 (8-16); ASPARTATE AMINO TRANSFERASE 28 U/L (10-37); BILIRUBIN,TOTAL 0.4 MG/DL (0.1-1.0); BLOOD UREA NITROGEN 14 MG/DL (7-18); BUN/CREATININE RATIO 12.6 (5.4-32.0); CHLORIDE 101 MMOL/L (99-107); CREATININE 1.11 MG/DL (0.60-1.10); GLUCOSE 138 MG/DL (70-104); MAGNESIUM 1.5 MG/DL (1.5-2.4); PHOSPHORUS 3.5 MG/DL (2.3-4.5); POTASSIUM 4.1 MMOL/L (3.5-5.1); SODIUM 136 MMOL/L (135-145); TOTAL CARBON DIOXIDE 28.2 MMOL/L (24-32); TOTAL PROTEIN 7.6 G/DL (6.4-8.2); eGFR 68 ML/MIN
--- NOTE | 2019-04-23 06:41 | NUR ---
Problems reprioritized. Patient report given, questions answered & plan of care reviewed with Mariely LEMA.
--- NOTE | 2019-04-23 06:49 | NUR ---
Patient in room COURT 351. I have received report from raquel morales and had the opportunity to ask questions and assume patient care.
--- NOTE | 2019-04-23 06:51 | NUR ---
Patient in room COURT 351. I have received report from Tammi LEMA and had the opportunity to ask questions and assume patient care.
[2019-04-23 07:00] VITALS: BP 155/87
[2019-04-23 07:28] VITALS: BP 164/101
[2019-04-23] MEDS: ringers solution, lacted 1,000 ML IV SCH ×2 (07:43→17:42)
[2019-04-23] MEDS: ketorolac trometh. 30mg/ml inj. IV PRN ×2 (07:46→17:37)
[2019-04-23] MEDS: linagliptin 5mg tablet PO SCH (07:50)
[2019-04-23] MEDS: gabapentin 400mg capsule PO SCH ×3 (07:51→21:20)
[2019-04-23] MEDS: docusate sod 100mg capsule PO SCH ×2 (07:52→20:00)
[2019-04-23] MEDS: duloxetine 30mg CAPSULE.DR PO SCH (07:53)
[2019-04-23] MEDS: metoprolol tartrate 25mg tablet PO SCH ×2 (07:54→21:24)
[2019-04-23] MEDS: buproprion 150mg XL (24-hour) tablet PO SCH (07:55)
[2019-04-23] MEDS: sennosides/docusate sodium tablet PO SCH ×2 (07:55→20:00)
[2019-04-23] MEDS: sertraline 50mg tablet PO SCH (07:56)
[2019-04-23] MEDS: heparin, porcine 5000 units/ml vial SQ SCH ×2 (07:57→21:25)
[2019-04-23] MEDS: K and/or MAG REPLACEMENT MC SCH (08:00)
[2019-04-23 11:00] VITALS: BP 117/78
--- NOTE | 2019-04-23 11:09 | NUR ---
patient seen by Dr jay order given to SARAH youssef. Nystatin ordered for reddened groin . will monitor patient for post voids
--- NOTE | 2019-04-23 11:19 | NUR ---
DC folly catheter per Dr. Shook's order. Will check post voids.
[2019-04-23] MEDS: nystatin 15 GM powder TP SCH ×2 (13:08→21:26)
--- NOTE | 2019-04-23 13:10 | NUR ---
Student Medication Administration: For this medication-pass time frame, all medication were reviewed, dispensed, administered and documented per hospital policy by SN Tamy.
--- NOTE | 2019-04-23 17:09 | NUR ---
Student documentation: I have reviewed and agree with all interventions, assessments performed and documented by SN Tamy.
--- NOTE | 2019-04-23 17:43 | NUR ---
patient unable to void after [address] jay paged .
--- NOTE | 2019-04-23 17:50 | NUR ---
Problems reprioritized. Patient report given, questions answered & plan of care reviewed with Mariely LEMA.
[2019-04-23 18:00] VITALS: BP 141/76
--- NOTE | 2019-04-23 18:35 | NUR ---
Problems reprioritized. Patient report given, questions answered & plan of care reviewed with Alex LEMA.
--- NOTE | 2019-04-23 18:39 | NUR ---
Patient in room COURT 351. I have received report from PITA Tolentino and had the opportunity to ask questions and assume patient care.
[2019-04-23] MEDS: insulin glargine (Lantus) pen - multi-dose SQ SCH (21:00)
[2019-04-23] MEDS ORDERED: tamsulosin 0.4mg capsule PO SCH (21:00)
[2019-04-23] MEDS: atorvastatin 10mg tablet PO SCH (21:20)
[2019-04-23] MEDS: Terazosin 1mg capsule PO SCH (21:20)
--- NOTE | 2019-04-23 23:52 | NUR ---
I missed charting the CADD settings for 1899. This is what the numbers were at 1899: Continuos: 0.20, Demand: 0.30 Lockout:10 number of doses given:75, Attempts: 154...45mg
[2019-04-24] VITALS: BP 134/74
[2019-04-24] MEDS: ketorolac trometh. 30mg/ml inj. IV PRN ×3 (00:56→14:17)
[2019-04-24] MEDS: HYDROmorphone/NS 1 mg/ml CADD 50 ML IV SCH ×9 (01:00→17:00)
[2019-04-24] MEDS: ringers solution, lacted 1,000 ML IV SCH ×2 (03:07→14:22)
[2019-04-24 05:56] LABS: BASOPHILS % (AUTO) 0.4 % (0-1); EOSINOPHILS # (AUTO) 0.2 X10'3 (0-0.9); EOSINOPHILS % (AUTO) 2.1 % (0-6); HEMATOCRIT 31.7 % (42.0-52.0); HEMOGLOBIN 10.9 g/dl (14.0-17.9); LYMPHOCYTES # (AUTO) 1.8 X10'3 (1.1-4.8); LYMPHOCYTES % (AUTO) 23.5 % (21-51); MEAN CORPUSCULAR HEMOGLOBIN 30.4 PG (27.0-31.0); MEAN CORPUSCULAR HGB CONC 34.5 g/dL (33.0-36.5); MEAN CORPUSCULAR VOLUME 88.1 FL (78-98); MEAN PLATELET VOLUME 7.8 FL (7.4-10.4); MONOCYTES # (AUTO) 0.5 X10'3 (0-0.9); MONOCYTES % (AUTO) 7.2 % (2-12); NEUTROPHILS # (AUTO) 5.1 X10'3 (1.8-7.7); NEUTROPHILS % (AUTO) 66.8 % (42-75); PLATELET COUNT 260 X10'3 (140-440); RED CELL DISTRIBUTION WIDTH 12.7 % (11.5-14.5); WHITE BLOOD COUNT 7.6 X10'3 (4.5-11.0)
[2019-04-24 06:05] LABS: ALANINE AMINOTRANSFERASE 20 U/L (12-78); ALBUMIN 2.4 G/DL (3.4-5.0); ALBUMIN/GLOBULIN RATIO 0.5 (1.1-1.5); ALKALINE PHOSPHATASE 104 IU/L (46-116); ANION GAP 4 (8-16); ASPARTATE AMINO TRANSFERASE 30 U/L (10-37); BILIRUBIN,TOTAL 0.3 MG/DL (0.1-1.0); BLOOD UREA NITROGEN 23 MG/DL (7-18); BUN/CREATININE RATIO 20.5 (5.4-32.0); CALCIUM 8.7 MG/DL (8.5-10.1); CHLORIDE 104 MMOL/L (99-107); CREATININE 1.12 MG/DL (0.60-1.10); GLUCOSE 131 MG/DL (70-104); MAGNESIUM 1.7 MG/DL (1.5-2.4); PHOSPHORUS 3.7 MG/DL (2.3-4.5); POTASSIUM 4.3 MMOL/L (3.5-5.1); SODIUM 137 MMOL/L (135-145); TOTAL CARBON DIOXIDE 28.6 MMOL/L (24-32); TOTAL PROTEIN 7.4 G/DL (6.4-8.2); eGFR 67 ML/MIN
--- NOTE | 2019-04-24 06:34 | NUR ---
Problems reprioritized. Patient report given, questions answered & plan of care reviewed with PITA Tolentino and PITA Solorio.
--- NOTE | 2019-04-24 06:39 | NUR ---
Patient in room COURT 351. I have received report from Alex LEMA and had the opportunity to ask questions and assume patient care.
[2019-04-24 07:17] VITALS: BP 145/83
[2019-04-24] MEDS: K and/or MAG REPLACEMENT MC SCH (08:00)
[2019-04-24] MEDS: sennosides/docusate sodium tablet PO SCH (08:20)
[2019-04-24] MEDS: gabapentin 400mg capsule PO SCH ×2 (08:21→13:13)
[2019-04-24] MEDS: sertraline 50mg tablet PO SCH (08:21)
[2019-04-24] MEDS: buproprion 150mg XL (24-hour) tablet PO SCH (08:21)
[2019-04-24] MEDS: docusate sod 100mg capsule PO SCH (08:21)
[2019-04-24] MEDS: duloxetine 30mg CAPSULE.DR PO SCH (08:22)
[2019-04-24] MEDS: linagliptin 5mg tablet PO SCH (08:22)
[2019-04-24] MEDS: heparin, porcine 5000 units/ml vial SQ SCH (08:23)
[2019-04-24] MEDS: metoprolol tartrate 25mg tablet PO SCH (08:23)
[2019-04-24] MEDS: nystatin 15 GM powder TP SCH ×2 (08:24→13:14)
[2019-04-24 12:15] VITALS: BP 107/60
--- NOTE | 2019-04-24 15:08 | NUR ---
Pt has orders to transfer to [facility]. telephone report given to Vicky LEMA.
--- NOTE | 2019-04-24 17:40 | NUR ---
Pt transferred to [facility] via [facility] accompanied by [facility] personal. pt alert and oriented in stable condition. discharge instructions and belonging sent with pt.
== END 2019-04-24 17:25 | DRG 305 ==
LOC: ER 09:06 → ED HOLD 10:31 → SUR 3N 11:39
PROVIDERS: ADMIT Family Medicine; ATTEND Family Medicine
PROC: 0Y6J0Z1 Detachment at Left Lower Leg, High, Open Approach (ICD-10-PCS; principal; 2019-04-21 14:17)
DX: E11.69 Type 2 diabetes mellitus with other specified complication (principal); E11.22 Type 2 diabetes mellitus with diabetic chronic kidney disease; E11.610 Type 2 diabetes mellitus with diabetic neuropathic arthropathy; M86.172 Other acute osteomyelitis, left ankle and foot; E11.621 Type 2 diabetes mellitus with foot ulcer; E11.42 Type 2 diabetes mellitus with diabetic polyneuropathy; D64.9 Anemia, unspecified; E78.00 Pure hypercholesterolemia, unspecified; N18.9 Chronic kidney disease, unspecified; N40.0 Benign prostatic hyperplasia without lower urinary tract symptoms; F15.90 Other stimulant use, unspecified, uncomplicated; G89.29 Other chronic pain; M54.9 Dorsalgia, unspecified; E78.5 Hyperlipidemia, unspecified; F32.9 Major depressive disorder, single episode, unspecified; B95.62 Methicillin resistant Staphylococcus aureus infection as the cause of diseases classified elsewhere; E66.01 Morbid (severe) obesity due to excess calories; I12.9 Hypertensive chronic kidney disease with stage 1 through stage 4 chronic kidney disease, or unspecified chronic kidney disease; L97.529 Non-pressure chronic ulcer of other part of left foot with unspecified severity; Z88.2 Allergy status to sulfonamides; Z79.4 Long term (current) use of insulin; Z79.899 Other long term (current) drug therapy; Z90.49 Acquired absence of other specified parts of digestive tract; Z98.84 Bariatric surgery status; Z68.35 Body mass index [BMI] 35.0-35.9, adult
CPT/HCPCS: 36415; 71045; 80053; 81001; 82948; 83036; 83735; 84100; 85025; 85610; 85730; 87081; 93005; 97110; 97116; 97162; 97530; 99285; A4615; A6222; A6446; A6449; A7000; C1758; G0378; J1170; J1644; J1815; J1885; J2060; J2250; J2270; J3010; J3475; J7030; J7120

== ENCOUNTER 2021-08-08 11:50 | Emergency (ER) | payer MEDICAID ==
[~2021-08-08] VITALS: Ht 175.3 cm; Wt 104.5 kg
[~2021-08-08 11:50] MED LIST changes: -AMOX-422 PO; +BUPR-317 PO; -BUPR150T6 PO; +DILT180C53 PO; -DOXY100C2 PO; -DULO30CA52 PO; +FURO40TA4 PO; -LACT1CAP26 PO; +LISI5TAB22 PO; +METF-1203 PO; -OXYC-511 PO; +OXYC1TAB17 PO; +SPIR50TA5 PO; +TIZA-189 PO; -TIZA2TAB5 PO
[2021-08-08 11:55] VITALS: BP 133/79
[2021-08-08 12:31] LABS: BASOPHILS % (AUTO) 0.4 % (0-1); EOSINOPHILS % (AUTO) 0 % (0-6); HEMATOCRIT 37.5 % (42.0-52.0); HEMOGLOBIN 12.4 g/dl (14.0-17.9); LYMPHOCYTES # (AUTO) 0.7 X10'3 (1.1-4.8); LYMPHOCYTES % (AUTO) 20.1 % (21-51); MEAN CORPUSCULAR HEMOGLOBIN 26.2 PG (27.0-31.0); MEAN CORPUSCULAR VOLUME 79.4 FL (78-98); MONOCYTES # (AUTO) 0.3 X10'3 (0-0.9); MONOCYTES % (AUTO) 8.6 % (2-12); NEUTROPHILS # (AUTO) 2.3 X10'3 (1.8-7.7); NEUTROPHILS % (AUTO) 70.9 % (42-75); PLATELET COUNT 284 X10'3 (140-440); RED BLOOD COUNT 4.72 X10'6 (4.70-6.10); RED CELL DISTRIBUTION WIDTH 14.1 % (11.5-14.5); WHITE BLOOD COUNT 3.3 X10'3 (4.5-11.0)
[2021-08-08 12:54] LABS: ALANINE AMINOTRANSFERASE 16 U/L (12-78); ALBUMIN 2.8 G/DL (3.4-5.0); ALBUMIN/GLOBULIN RATIO 0.5 (1.1-1.5); ALKALINE PHOSPHATASE 77 IU/L (46-116); ANION GAP 13 (8-16); ASPARTATE AMINO TRANSFERASE 31 U/L (10-37); BILIRUBIN,TOTAL 0.3 MG/DL (0.1-1.0); BLOOD UREA NITROGEN 15 MG/DL (7-18); BUN/CREATININE RATIO 12.4 (5.4-32.0); CALCIUM 7.9 MG/DL (8.5-10.1); CHLORIDE 93 MMOL/L (99-107); CREATININE 1.21 MG/DL (0.60-1.10); GLUCOSE 150 MG/DL (70-104); POTASSIUM 4.7 MMOL/L (3.5-5.1); SODIUM 130 MMOL/L (135-145); TOTAL CARBON DIOXIDE 24.5 MMOL/L (24-32); TOTAL PROTEIN 7.9 G/DL (6.4-8.2); eGFR 61 ML/MIN
[2021-08-08] MEDS ORDERED: normal saline 1000ML IV soln IVB ONE (14:40)
[2021-08-08] MEDS ORDERED: ketorolac tromethamine 15mg/ml inj. IV ONE (14:40)
[2021-08-08] MEDS ORDERED: ondansetron/PF 4mg/2ml inj IV ONE (14:40)
[2021-08-08 16:06] LABS: CLARITY,URINE SLIGHTLY CLOUDY (Clear); COLOR,URINE YELLOW (Yellow); GLUCOSE, URINE NEGATIVE (Neg); KETONES,URINE 15 mg/dl (Neg); LEUKOCYTE ESTERASE ,URINE NEGATIVE (Neg); NITRITES, URINE NEGATIVE (Neg); OCCULT BLOOD,URINE MODERATE (Neg); PROTEIN,URINE 30 mg/dl (Neg); UROBILINOGEN,URINE 0.2 E.U/dL (0.2-1.0)
[2021-08-08 16:15] LABS: UA COLLECTION TYPE STRAIGHT CATH
[2021-08-08 16:18] LABS: FINE GRANULAR CAST 0-3 /LPF (NEGATIVE); HYALINE CASTS 0-3 /LPF (NEGATIVE); MUCUS STRANDS FEW /LPF (Neg); SQUAMOUS EPITHELIAL CELL,UR FEW /LPF (FEW)
[2021-08-08 16:19] LABS: BACTERIA,URINE FEW /HPF (Neg); RBC,URINE 20-50 /HPF (0-2); WBC,URINE 0-4 /HPF (0-4)
[2021-08-08 16:31] LABS: RENAL CELLS, URINE FEW /HPF; TRANSITIONAL EPI CELLS,URINE FEW /HPF
[2021-08-08] MEDS ORDERED: IBUP-1985 PO (17:45)
--- NOTE | 2021-08-08 18:29 | NUR ---
Patient's wound is unwrapped, doctor checks, then wound is repacked and covered. Supplies for dressing change are sent home with patient.
== END 2021-08-08 18:32 | disposition home or self-care (01) ==
LOC: ER 11:51
DX: S90.922A Unspecified superficial injury of left foot, initial encounter (principal); N20.0 Calculus of kidney; F15.90 Other stimulant use, unspecified, uncomplicated; E78.00 Pure hypercholesterolemia, unspecified; I10 Essential (primary) hypertension; E11.9 Type 2 diabetes mellitus without complications; G89.29 Other chronic pain; Z87.442 Personal history of urinary calculi; Z98.890 Other specified postprocedural states; Z72.89 Other problems related to lifestyle; Z59.00 Homelessness unspecified; Z88.2 Allergy status to sulfonamides; Z79.4 Long term (current) use of insulin; Z79.899 Other long term (current) drug therapy; X58.XXXA Exposure to other specified factors, initial encounter; Y93.89 Activity, other specified; Y92.89 Other specified places as the place of occurrence of the external cause; Y99.8 Other external cause status
CPT/HCPCS: 36415; 74176; 80053; 81001; 85025; 96361; 96374; 96375; 99284; J1885; J2405; J7030

== ENCOUNTER 2022-02-17 03:53 | Inpatient (IN) | payer MEDICAID ==
[~2022-02-17] VITALS: Ht 175.3 cm; Wt 106.9 kg
[~2022-02-17 03:53] MED LIST changes: +IBUP-1985 PO
[2022-02-17] MEDS ORDERED: amiodarone 150mg/dext, iso-os 100 ML IV ONE (04:00)
[2022-02-17] MEDS ORDERED: aspirin 81mg tab.chew PO ONE (04:05)
[2022-02-17] MEDS ORDERED: adenosine 3mg/ml 2ml vial IV ONE (04:05)
[2022-02-17 04:46] LABS: BASOPHILS # (AUTO) 0.1 X10'3 (0-0.2); BASOPHILS % (AUTO) 0.8 % (0-1); EOSINOPHILS # (AUTO) 0.2 X10'3 (0-0.9); EOSINOPHILS % (AUTO) 1.5 % (0-6); HEMATOCRIT 42.1 % (42.0-52.0); HEMOGLOBIN 14.2 g/dl (14.0-17.9); LYMPHOCYTES # (AUTO) 2.7 X10'3 (1.1-4.8); LYMPHOCYTES % (AUTO) 24.4 % (21-51); MEAN CORPUSCULAR HEMOGLOBIN 27.6 PG (27.0-31.0); MEAN CORPUSCULAR HGB CONC 33.8 g/dL (33.0-36.5); MEAN CORPUSCULAR VOLUME 81.7 FL (78-98); MEAN PLATELET VOLUME 8.6 FL (7.4-10.4); MONOCYTES # (AUTO) 0.7 X10'3 (0-0.9); MONOCYTES % (AUTO) 6.3 % (2-12); NEUTROPHILS # (AUTO) 7.3 X10'3 (1.8-7.7); PLATELET COUNT 275 X10'3 (140-440); RED BLOOD COUNT 5.15 X10'6 (4.70-6.10); RED CELL DISTRIBUTION WIDTH 15.1 % (11.5-14.5); WHITE BLOOD COUNT 10.9 X10'3 (4.5-11.0)
[2022-02-17] MEDS ORDERED: naloxone 0.4 mg/ml inj IV ONE (04:55)
[2022-02-17 05:04] LABS: ALANINE AMINOTRANSFERASE 24 U/L (12-78); ALBUMIN 3.3 G/DL (3.4-5.0); ALBUMIN/GLOBULIN RATIO 0.7 (1.1-1.5); ALKALINE PHOSPHATASE 146 IU/L (46-116); ANION GAP 10 (8-16); ASPARTATE AMINO TRANSFERASE 13 U/L (10-37); BILIRUBIN,TOTAL 0.2 MG/DL (0.1-1.0); BLOOD UREA NITROGEN 26 MG/DL (7-18); CALCIUM 8.8 MG/DL (8.5-10.1); CHLORIDE 100 MMOL/L (99-107); CREATININE 1.62 MG/DL (0.60-1.10); MAGNESIUM 1.8 MG/DL (1.5-2.4); POTASSIUM 4.4 MMOL/L (3.5-5.1); SODIUM 137 MMOL/L (135-145); TOTAL CARBON DIOXIDE 27.4 MMOL/L (24-32); TOTAL PROTEIN 7.8 G/DL (6.4-8.2); eGFR 43 ML/MIN
[2022-02-17] MEDS ORDERED: normal saline 1000ml 1,000 ML IV ONE (05:05)
[2022-02-17 05:11] LABS: GLUCOSE 508 MG/DL (70-104)
[2022-02-17] MEDS ORDERED: insulin regular, human 10 units/0.1 ml syringe IV ONE (05:25)
[2022-02-17 05:32] LABS: ETHANOL < 0.010 GM/DL (0.0-0.010)
[2022-02-17 06:03] LABS: CLARITY,URINE CLEAR (Clear); GLUCOSE, URINE >=1000 mg/dl (Neg); KETONES,URINE NEGATIVE (Neg); LEUKOCYTE ESTERASE ,URINE NEGATIVE (Neg); NITRITES, URINE NEGATIVE (Neg); OCCULT BLOOD,URINE TRACE-INTACT (Neg); PROTEIN,URINE NEGATIVE (Neg); UROBILINOGEN,URINE 0.2 E.U/dL (0.2-1.0)
[2022-02-17 06:08] LABS: COLOR,URINE STRAW (Yellow); UA COLLECTION TYPE FOLEY CATH
[2022-02-17 06:13] LABS: BACTERIA,URINE NONE SEEN /HPF (Neg); HYALINE CASTS 0-3 /LPF (NEGATIVE); MUCUS STRANDS NONE SEEN /LPF (Neg); RBC,URINE 0-2 /HPF (0-2); RENAL CELLS, URINE FEW /HPF; SQUAMOUS EPITHELIAL CELL,UR NONE SEEN /LPF (FEW); WBC,URINE NONE SEEN /HPF (0-4)
[2022-02-17 06:14] LABS: URINE AMPHETAMINE SCREEN POSITIVE (Neg); URINE BARBITUATE SCREEN NEGATIVE (Neg); URINE BENZODIAZEPINES SCREEN NEGATIVE (Neg); URINE CANNABINOID SCREEN NEGATIVE (Neg); URINE COCAINE SCREEN NEGATIVE (Neg); URINE METHADONE SCREEN NEGATIVE (Neg); URINE OPIATE SCREEN NEGATIVE (Neg); URINE PHENCYCLIDINE SCREEN NEGATIVE (Neg)
--- NOTE | 2022-02-17 06:43 | NUR ---
ALEXANDRE [phone]
[2022-02-17] MEDS ORDERED: ringers solution, lacted 1,000 ML IV ONE (07:20)
--- NOTE | 2022-02-17 10:15 | NUR ---
relieving RN for break, pt is sleeping, resp even and unlabored, SR on monitor, waiting to be evaluated by hospitalist
[2022-02-17] MEDS ORDERED: LORazepam 1 MG tablet PO PRN (11:00)
[2022-02-17] MEDS ORDERED: LORazepam 0.5 MG tablet PO PRN (11:00)
[2022-02-17] MEDS ORDERED: DEXTROSE 15 GM of carb/4 tabs (each vial/BOTTLE has 4 tablets) PO PRN ×2 (11:00)
[2022-02-17] MEDS ORDERED: magnesium 4gm in 100ml NS 100 ML IV PRN (11:00)
[2022-02-17] MEDS ORDERED: dextrose 50%-water 50ml dispensing syringe IV PRN ×2 (11:00)
[2022-02-17] MEDS ORDERED: magnesium Cl slow-release 64mg tablet PO PRN (11:00)
[2022-02-17] MEDS ORDERED: acetaminophen 650mg rectal suppository RC PRN (11:00)
[2022-02-17] MEDS ORDERED: magnesium 2GM in 50ml NS 50 ML IV PRN (11:00)
[2022-02-17] MEDS ORDERED: LORazepam 2 mg/ml vial IV PRN ×2 (11:00)
[2022-02-17] MEDS ORDERED: mag hydrox/Alum hydrox/simeth 30ml oral suspension PO PRN (11:00)
[2022-02-17] MEDS ORDERED: glucagon, human recombinant 1mg kit SUBCUT PRN (11:00)
[2022-02-17] MEDS ORDERED: HYDROmorphone inj. 0.5 MG/0.5 ML DISP.SYRIN IV PRN (11:00)
[2022-02-17] MEDS ORDERED: ondansetron/PF 4mg/2ml inj IV PRN (11:00)
[2022-02-17] MEDS ORDERED: magnesium hydroxide 30ml (MOM) UD suspension PO PRN (11:00)
[2022-02-17] MEDS ORDERED: POTASSIUM BICARB 20meq eff tab 20 MEQ TABLET.EFF PO PRN ×2 (11:00)
[2022-02-17] MEDS ORDERED: metoclopramide 5 mg/ml inj IV PRN (11:00)
[2022-02-17] MEDS ORDERED: ondansetron 4mg rapidly disintigrating tab PO PRN (11:00)
[2022-02-17] MEDS ORDERED: HYDROcodone/acetaminophen 5mg/325mg tablet PO PRN (11:00)
[2022-02-17] MEDS ORDERED: MESSAGE TO PHARMACY PO ONE (11:00)
[2022-02-17] MEDS ORDERED: PERFLUTREN PROTEIN-A MICROSPHR (Optison) 0.22 MG/ML 3ML VIAL IV ONE (11:00)
[2022-02-17] MEDS ORDERED: acetaminophen 325mg tablet PO PRN ×2 (11:00)
[2022-02-17] MEDS ORDERED: HYDROmorphone/PF 0.2 MG/ML SYRINGE IV PRN (11:00)
[2022-02-17] MEDS ORDERED: potassium CL 10mEq/100ml bag 100 ML IV PRN (11:00)
[2022-02-17] MEDS ORDERED: bisacodyl 10mg suppository rectal RC PRN (11:00)
[2022-02-17 11:39] LABS: CHOL/HDL RATIO 5.8 (0.00-4.99); CHOLESTEROL 230 MG/DL (0-200); HDL CHOLESTEROL 40 MG/DL (35-60); LDL CHOLESTEROL 147 MG/DL (50-100); MAGNESIUM 1.7 MG/DL (1.5-2.4); POTASSIUM 3.8 MMOL/L (3.5-5.1); TRIGLYCERIDES 247 MG/DL (20-135)
[2022-02-17] MEDS: normal saline 1000ml 1,000 ML IV SCH ×2 (12:11→21:32)
[2022-02-17] MEDS: HYDROcodone/acetaminophen 10/325mg tab PO PRN ×2 (15:02→19:26)
[2022-02-17] MEDS: insulin Lispro (HumaLOG) vial - multi-dose SQ SCH ×2 (15:18→19:25)
[2022-02-17] MEDS: docusate sod 100mg capsule PO SCH (20:00)
[2022-02-17] MEDS: K and/or MAG REPLACEMENT MC SCH (20:00)
[2022-02-17] MEDS ORDERED: insulin glargine (Lantus) pen - multi-dose SQ SCH (21:00)
[2022-02-17] MEDS ORDERED: temazepam 15mg capsule PO PRN (21:00)
[2022-02-17 23:15] VITALS: BP 137/76
[2022-02-18 06:00] VITALS: BP 165/93
[2022-02-18 07:05] LABS: BASOPHILS % (AUTO) 0.6 % (0-1); EOSINOPHILS # (AUTO) 0.2 X10'3 (0-0.9); EOSINOPHILS % (AUTO) 2.6 % (0-6); HEMATOCRIT 39.6 % (42.0-52.0); HEMOGLOBIN 13.6 g/dl (14.0-17.9); LYMPHOCYTES # (AUTO) 2.2 X10'3 (1.1-4.8); MEAN CORPUSCULAR HEMOGLOBIN 27.9 PG (27.0-31.0); MEAN CORPUSCULAR HGB CONC 34.5 g/dL (33.0-36.5); MEAN PLATELET VOLUME 8.1 FL (7.4-10.4); MONOCYTES # (AUTO) 0.4 X10'3 (0-0.9); MONOCYTES % (AUTO) 4.5 % (2-12); NEUTROPHILS # (AUTO) 5.4 X10'3 (1.8-7.7); NEUTROPHILS % (AUTO) 65.3 % (42-75); PLATELET COUNT 231 X10'3 (140-440); RED BLOOD COUNT 4.89 X10'6 (4.70-6.10); RED CELL DISTRIBUTION WIDTH 14.5 % (11.5-14.5); WHITE BLOOD COUNT 8.2 X10'3 (4.5-11.0)
[2022-02-18 07:19] LABS: ALANINE AMINOTRANSFERASE 17 U/L (12-78); ALBUMIN/GLOBULIN RATIO 0.8 (1.1-1.5); ALKALINE PHOSPHATASE 84 IU/L (46-116); ANION GAP 7 (8-16); ASPARTATE AMINO TRANSFERASE 12 U/L (10-37); BILIRUBIN,TOTAL 0.3 MG/DL (0.1-1.0); BLOOD UREA NITROGEN 15 MG/DL (7-18); BUN/CREATININE RATIO 11.7 (5.4-32.0); CALCIUM 8.2 MG/DL (8.5-10.1); CHLORIDE 102 MMOL/L (99-107); CREATININE 1.28 MG/DL (0.60-1.10); GLUCOSE 325 MG/DL (70-104); SODIUM 137 MMOL/L (135-145); TOTAL CARBON DIOXIDE 27.7 MMOL/L (24-32); TOTAL PROTEIN 6.9 G/DL (6.4-8.2); eGFR 57 ML/MIN
[2022-02-18] MEDS: docusate sod 100mg capsule PO SCH (07:47)
[2022-02-18] MEDS: K and/or MAG REPLACEMENT MC SCH (07:47)
[2022-02-18] MEDS: normal saline 1000ml 1,000 ML IV SCH (07:47)
[2022-02-18] MEDS ORDERED: enoxaparin 40mg/0.4ml syringe SUBCUT SCH (08:00)
[2022-02-18 11:00] VITALS: BP 156/101
[2022-02-18] MEDS: insulin Lispro (HumaLOG) vial - multi-dose SQ SCH (13:31)
--- NOTE | 2022-02-18 13:34 | NUR ---
Pt discharged per mikael Bryson discontinued prior to discharge per MD Mendoza orders. Discharge packet reviewed with pt, verbalized understanding of medication list, f/u appts, and dc instructions. PIV and telemonitor removed. Pt wheeled down to main entrance via wheelchair with all belongings. Pt in no signs of acute distress.
== END 2022-02-18 13:38 | disposition home or self-care (01) | DRG 812 ==
LOC: ER 03:54 → ED HOLD 11:03 → EDBEDREQ 20:57 → PCU 3S 22:56
PROVIDERS: ADMIT Family Medicine; ATTEND Family Medicine
DX: T43.621A Poisoning by amphetamines, accidental (unintentional), initial encounter (principal); N17.0 Acute kidney failure with tubular necrosis; I47.2 Ventricular tachycardia; E11.51 Type 2 diabetes mellitus with diabetic peripheral angiopathy without gangrene; I11.9 Hypertensive heart disease without heart failure; E11.65 Type 2 diabetes mellitus with hyperglycemia; E78.00 Pure hypercholesterolemia, unspecified; F15.90 Other stimulant use, unspecified, uncomplicated; F41.9 Anxiety disorder, unspecified; I48.91 Unspecified atrial fibrillation; E11.69 Type 2 diabetes mellitus with other specified complication; I49.9 Cardiac arrhythmia, unspecified; M86.8X6 Other osteomyelitis, lower leg; J44.9 Chronic obstructive pulmonary disease, unspecified; G89.29 Other chronic pain; M54.9 Dorsalgia, unspecified; F32.A Depression, unspecified; Z79.84 Long term (current) use of oral hypoglycemic drugs; Z79.4 Long term (current) use of insulin; Z87.442 Personal history of urinary calculi; Z88.2 Allergy status to sulfonamides; Z89.512 Acquired absence of left leg below knee; Z99.81 Dependence on supplemental oxygen; Z59.00 Homelessness unspecified; Z79.899 Other long term (current) drug therapy; Y92.89 Other specified places as the place of occurrence of the external cause
CPT/HCPCS: 36415; 71045; 80053; 80061; 80305; 80320; 81001; 82948; 83735; 83880; 84132; 84443; 84484; 85025; 85610; 87081; 93005; 93306; 96361; 96374; 96375; 99291; A4314; A4615; C1758; G0378; J0282; J1170; J1650; J1815; J2310; J7030; J7120

== ENCOUNTER 2023-12-07 10:37 | Emergency (ER) | payer MEDICAID ==
[~2023-12-07] VITALS: Ht 165.1 cm; Wt 102.3 kg
[~2023-12-07 10:37] MED LIST changes: -BUPR-317 PO; +BUPR-561 PO; +BUPR2TAB11 SL; -CLON-568 PO; +CLOP75TA34 PO; -GABA800T11 PO; -IBUP-1985 PO; -INSU100V43 SQ; +INSU100V49 SQ; +LYR75C PO; -METH-603 PO; +ROPI0.5T37 PO; -SERT100T PO; -TERA2CAP4 PO; +tamsulosin capsule PO
[2023-12-07 11:10] VITALS: TEMP 98
[2023-12-07] MEDS: metoprolol tartrate 50mg tablet PO ONE (11:14)
[2023-12-07 11:33] LABS: BASOPHILS # (AUTO) 0.1 X10'3 (0-0.2); EOSINOPHILS # (AUTO) 0.1 X10'3 (0-0.9); EOSINOPHILS % (AUTO) 1.2 % (0-6); HEMATOCRIT 40.4 % (42.0-52.0); HEMOGLOBIN 13.4 g/dl (14.0-17.9); LYMPHOCYTES # (AUTO) 1.9 X10'3 (1.1-4.8); LYMPHOCYTES % (AUTO) 27.5 % (21-51); MEAN CORPUSCULAR HEMOGLOBIN 27.6 PG (27.0-31.0); MEAN CORPUSCULAR HGB CONC 33.2 g/dL (33.0-36.5); MEAN CORPUSCULAR VOLUME 83.2 FL (78-98); MEAN PLATELET VOLUME 7.9 FL (7.4-10.4); MONOCYTES # (AUTO) 0.5 X10'3 (0-0.9); MONOCYTES % (AUTO) 7.2 % (2-12); NEUTROPHILS # (AUTO) 4.4 X10'3 (1.8-7.7); NEUTROPHILS % (AUTO) 63.1 % (42-75); PLATELET COUNT 204 X10'3 (140-440); RED BLOOD COUNT 4.85 X10'6 (4.70-6.10); RED CELL DISTRIBUTION WIDTH 14.4 % (11.5-14.5)
[2023-12-07 11:45] LABS: ALBUMIN 3.1 G/DL (3.4-5.0); ANION GAP 10 (8-16); BLOOD UREA NITROGEN 23 MG/DL (7-18); BUN/CREATININE RATIO 18.3 (10.0-20.0); CALCIUM 8.4 MG/DL (8.5-10.1); CHLORIDE 105 MMOL/L (99-107); CREATININE 1.26 MG/DL (0.60-1.10); GLUCOSE 179 MG/DL (70-104); POTASSIUM 4.5 MMOL/L (3.5-5.1); PRO BRAIN NATRIURETIC PEPTIDE 216 PG/ML (0-125); SODIUM 138 MMOL/L (135-145); TOTAL CARBON DIOXIDE 23.3 MMOL/L (24-32); eCRCL 51 ML/MIN; eGFR 57 ML/MIN
[2023-12-07 12:15] VITALS: BP 120/69; PULSE 61; RESP 12; O2SAT 98
== END 2023-12-07 15:15 | disposition home or self-care (01) ==
LOC: ER 10:37
DX: I48.91 Unspecified atrial fibrillation (principal); E78.00 Pure hypercholesterolemia, unspecified; I10 Essential (primary) hypertension; E11.9 Type 2 diabetes mellitus without complications; F15.90 Other stimulant use, unspecified, uncomplicated; Z87.442 Personal history of urinary calculi; Z98.890 Other specified postprocedural states
CPT/HCPCS: 36415; 71045; 80048; 82948; 83880; 84484; 85025; 93005; 99285

== ENCOUNTER 2023-12-27 11:26 | Emergency (ER) | payer MEDICAID ==
[~2023-12-27] VITALS: Ht 175.3 cm; Wt 102.3 kg
[2023-12-27 11:59] LABS: BASOPHILS # (AUTO) 0.1 X10'3 (0-0.2); BASOPHILS % (AUTO) 0.5 % (0-1); EOSINOPHILS # (AUTO) 0.1 X10'3 (0-0.9); EOSINOPHILS % (AUTO) 1.3 % (0-6); HEMATOCRIT 41.4 % (42.0-52.0); HEMOGLOBIN 13.9 g/dl (14.0-17.9); LYMPHOCYTES # (AUTO) 2.5 X10'3 (1.1-4.8); LYMPHOCYTES % (AUTO) 24.9 % (21-51); MEAN CORPUSCULAR HEMOGLOBIN 27.5 PG (27.0-31.0); MEAN CORPUSCULAR HGB CONC 33.5 g/dL (33.0-36.5); MEAN CORPUSCULAR VOLUME 82.1 FL (78-98); MEAN PLATELET VOLUME 8.3 FL (7.4-10.4); MONOCYTES # (AUTO) 0.7 X10'3 (0-0.9); NEUTROPHILS # (AUTO) 6.6 X10'3 (1.8-7.7); NEUTROPHILS % (AUTO) 66.3 % (42-75); PLATELET COUNT 209 X10'3 (140-440); RED BLOOD COUNT 5.04 X10'6 (4.70-6.10); WHITE BLOOD COUNT 9.9 X10'3 (4.5-11.0)
[2023-12-27 12:14] LABS: ALANINE AMINOTRANSFERASE 31 U/L (12-78); ALBUMIN 3.2 G/DL (3.4-5.0); ALBUMIN/GLOBULIN RATIO 0.8 (1.1-1.5); ALKALINE PHOSPHATASE 73 IU/L (46-116); ANION GAP 10 (8-16); ASPARTATE AMINO TRANSFERASE 16 U/L (10-37); BILIRUBIN,TOTAL 0.3 MG/DL (0.1-1.0); BLOOD UREA NITROGEN 31 MG/DL (7-18); BUN/CREATININE RATIO 21.8 (10.0-20.0); CALCIUM 8.5 MG/DL (8.5-10.1); CHLORIDE 105 MMOL/L (99-107); CREATININE 1.42 MG/DL (0.60-1.10); GLUCOSE 86 MG/DL (70-104); POTASSIUM 3.6 MMOL/L (3.5-5.1); SODIUM 141 MMOL/L (135-145); TOTAL CARBON DIOXIDE 26.2 MMOL/L (24-32); TOTAL PROTEIN 7.2 G/DL (6.4-8.2); eCRCL 52 ML/MIN; eGFR 50 ML/MIN
[2023-12-27 12:19] LABS: THYROID STIMULATING HORMONE 1.69 ulU/ml (0.34-4.50)
[2023-12-27 15:11] VITALS: BP 130/88; PULSE 66; RESP 17; TEMP 98.7; O2SAT 94
== END 2023-12-27 15:33 | disposition home or self-care (01) ==
LOC: ER 11:27
DX: I47.10 Supraventricular tachycardia, unspecified (principal); F17.200 Nicotine dependence, unspecified, uncomplicated; F15.90 Other stimulant use, unspecified, uncomplicated; I48.91 Unspecified atrial fibrillation; E78.00 Pure hypercholesterolemia, unspecified; I10 Essential (primary) hypertension; J45.909 Unspecified asthma, uncomplicated; G89.29 Other chronic pain; M54.9 Dorsalgia, unspecified; E07.9 Disorder of thyroid, unspecified; Z79.899 Other long term (current) drug therapy; Z79.84 Long term (current) use of oral hypoglycemic drugs; Z88.2 Allergy status to sulfonamides; Z72.89 Other problems related to lifestyle; Z87.442 Personal history of urinary calculi
CPT/HCPCS: 36415; 71045; 80053; 84443; 85025; 93005; 99285

== ENCOUNTER 2024-11-07 16:27 | Inpatient (IN) | payer MEDICARE, MEDICAID ==
[~2024-11-07] VITALS: Ht 172.7 cm; Wt 101.6 kg
[~2024-11-07 16:27] MED LIST changes: -BUPR-561 PO; +BUPR-726 PO
--- NOTE | 2024-11-07 17:05 | RADIOLOGY REPORT ---
CHEST RADIOGRAPH Indication: SEPSIS RU Technique: Single frontal view of the chest was obtained Comparison: DI CHEST,SINGLE VIEW on DOS: 12/27/23, DI CHEST,SINGLE VIEW on DOS: 12/07/23, DI CHEST,SING LE VIEW on DOS: 11/09/23, CHEST,SINGLE VIEW on DOS: 02/17/22, CHEST,SINGLE VIEW on DOS: 04/21/19 FINDINGS: Lines and Tubes: None Lungs: No focal consolidation. Pleura: No effusion. No pneumothorax. Cardiomediastinal contours: Mild cardiomegaly with left ventricular contour Bones: No acute osseous abnormality. IMPRESSION: 1. Mild cardiomegaly with left ventricular contour 2. No evidence of airspace consolidation or pulmonary venous congestion
--- NOTE | 2024-11-07 17:23 | Physician Documentation ---
History of Present Illness ~ Chief Complaint: Wound Stated Complaint: LEG PAIN Time Seen by MD: 17:10 Primary Medical Doctor: Dr. BOWDEN HPI 63-year-old male with a history of bilateral BKA is presenting with left lower extremity wound and subsequent pain. Patient was brought in via EMS. Patient reports that his left lower leg distal to the area of his amputation has recen tly developed a wound and has now become red and painful. He states that he has also felt more weak and fatigued as a result. Additionally he reports some subjective fevers and chills and states that earlier he had some chest pain. The chest pain has now resolved but he states that he still has a lot of pain in the area of the wound. The pain radiates from the wound up his leg. Denies any nausea, vomiting or any other associated symptoms. Tetanus witin 5 years: No Addendum I received sign-out on this patient at shift change, please see previous information. Briefly: The patient has bilateral lower extremity amputations, with a left lower extremity wound and stump cellulitis. Pending labs, CT scan, and admission. He received pain medicine and broad-spectrum antibiotics. On review of the CT scan, there are findings consistent with cellulitis but no abscess or other complication. Labs showed no significant leukocytosis. He will be admitted to the medicine service for further treatment and possible surgical consultation as indicated. 7pm: Consult: I spoke to the internal medicine service, for admission in the hospital Noble Pringle MD 11/07/24 1900 Medication Reconciliation Allergies: Coded Allergies: Sulfa (Sulfonamide Antibiotics) (Verified Allergy, Unknown, 12/07/23) Scheduled Buprenorphine Hcl (Buprenorphine Hcl), 2 TAB SL TID, (Reported) Bupropion HCl (Bupropion Xl), 1 TAB PO DAILY, (Reported) Clopidogrel Bisulfate (Clopidogrel), 1 TAB PO DAILY, (Reported) Diltiazem HCl (Cartia Xt), 180 MG PO DAILY, (Reported) Duloxetine HCl (Duloxetine HCl), 1 CAP PO DAILY, (Reported) Furosemide (Furosemide), 40 MG PO QAM Insulin Glargine,Hum.rec.anlog (Lantus), 40 UNITS SQ HS, (Reported) Insulin Lispro (Insulin Lispro), 4-12 UNITS SQ TID, (Reported) Lisinopril (Lisinopril), 5 MG PO DAILY, (Reported) Metformin HCl (Metformin HCl), 500 MG PO TID, (Reported) Metoprolol Tartrate (Metoprolol Tartrate), 0.5 TAB PO BID, (Reported) Ropinirole Hcl (Ropinirole Hcl), 1 TAB PO TID, (Reported) Saxagliptin Hydrochloride (Onglyza), 1 TABLET PO DAILY, (Reported) Simvastatin* (Zocor*), 1 TAB PO HS, (Reported) Spironolactone (Spironolactone), 50 MG PO QAM, (Reported) [tamsulosin capsule], 0.4 MG PO HS Scheduled PRN Oxycodone Hcl/Acetaminophen (Oxycodone-Acetaminophen 10-325), 1 TAB PO TID PRN for pain, (Reported) Pregabalin (LYRICA capsule), 1 CAP PO BID PRN for pain, (Reported) Tizanidine Hcl (Zanaflex), 1 TAB PO BID PRN for muscle spasms, (Reported) Past Medical History Past Medical History: Atrial Fibrillation, High Cholesterol, Hypertension, COPD, Kidney Stones, Diabetes, Thyroid (unspecified), Chronic Back Pain Past Surgical History: other Other Past Surgical History: Left below the knee amputation Alcohol Use: Occasionally Drug Use: methamphetamine Lives In: Home Past Social History: Quit smoking 2015 Review of Systems All Other Systems at this time: Reviewed and Negative Physical Exam Vital Signs: Temperature: 98.1, Source: Oral, Heart Rate: 57, Respiratory Rate: 15, BP: 121/73, Pulse Oximetry: 97, Weight: 101.600 Oxygen Flow Rate: 0 Physical Exam I have reviewed the triage vitals. CONST: Well developed and well nourished. In no acute distress HENT: Head Atraumatic EYES: Pupils are equal, round and reactive to light. Normal conjunctiva NECK: Normal range of motion. Supple. CARDIO: Normal rate and regular rhythm. No murmurs, rubs, or gallops. S1, S2. PULM/CHEST: No respiratory distress. Lungs clear to auscultation. No wheeze ABD: Soft and nontender. Nondistended. Bowel sounds normal. No guarding. : Exam deferred MSK: By lateral BKA is present. Wound present over the distal left lower extremity with surrounding edema, erythema and tenderness to palpation extending up to the knee. NEURO: Alert and oriented to person, place and time. Moving all extremities SKIN: Warm and dry. Pale PSYCH: Normal mood and affect. Good eye contact. Progress Results/Orders Results/Orders Orders - NOBLE PRINGLE MD [facility] Hospitalist (11/07/24 19:01) Medications Received in ER Medications (Trade) Dose Ordered Sig/Sandy Route PRN Reason Start Time Stop Time Status Last Admin Dose Admin Piperacillin/ Tazobactam/ Dextrose 50 ml @ 12.5 mls/hr Q8H IV 11/07/24 17:25 11/07/24 18:16 12.5 MLS/HR (morphine inj.) 4 mg ONCE ONCE IV 11/07/24 17:25 11/07/24 17:30 DC 11/07/24 18:16 4 MG (Zofran 4mg/2ml vial) 4 mg ONCE ONCE IV 11/07/24 17:25 11/07/24 17:30 DC 11/07/24 18:16 4 MG Vital Signs 11/07/24 11/07/24 11/07/24 11/07/24 16:33 17:55 18:05 18:16 Temp 98.1 Pulse 57 58 Resp 15 14 19 13 B/P (MAP) 121/73 118/87 (97) Pulse Ox 97 98 O2 Flow Rate 0 0 Laboratory Tests Test 11/07/24 18:37 White Blood Count 6.1 Red Blood Count 3.80 L Hemoglobin 10.3 L Hematocrit 30.5 L Mean Corpuscular Volume 80.3 Mean Corpuscular Hemoglobin 27.0 Mean Corpuscular Hemoglobin Concent 33.6 Red Cell Distribution Width 14.5 Platelet Count 254 Mean Platelet Volume 7.1 L Neutrophils (%) (Auto) 69.0 Lymphocytes (%) (Auto) 18.6 L Monocytes (%) (Auto) 9.7 Eosinophils (%) (Auto) 2.1 Basophils (%) (Auto) 0.6 Neutrophils # (Auto) 4.2 Lymphocytes # (Auto) 1.1 Monocytes # (Auto) 0.6 Eosinophils # (Auto) 0.1 Basophils # (Auto) 0.0 CBC Comment Sodium Level 138 Potassium Level 4.1 Chloride Level 102 Carbon Dioxide Level 28.9 Anion Gap 7 L Blood Urea Nitrogen 10 Creatinine 1.23 H Estimated GFR/1.73 m2 59 BUN/Creatinine Ratio 8.1 L Glucose Level 125 H Calcium Level 8.4 L Albumin 2.1 L Chemistry Comments EKG/XRAY/CT/US/VASC/MRI Chest X-Ray : Additional Comments T RADIOGRAPH Indication: SEPSIS RU Technique: Single frontal view of the chest was obtained Comparison: DI CHEST,SINGLE VIEW on DOS: 12/27/23, DI CHEST,SINGLE VIEW on DOS: 12/07/23, DI CHEST,SINGLE VIEW on DOS: 11/09/23, CHEST,SINGLE VIEW on DOS: 02/17/22, CHEST,SINGLE VIEW on DOS: 04/21/19 FINDINGS: Lines and Tubes: None Lungs: No focal consolidation. Pleura: No effusion. No pneumothorax. Cardiomediastinal contours: Mild cardiomegaly with left ventricular contour Bones: No acute osseous abnormality. IMPRESSION: 1. Mild cardiomegaly with left ventricular contour 2. No evidence of airspace consolidation or pulmonary venous congestion : Impression I personally reviewed the CT scan, and this shows inflammatory changes around th e stump and anterior lower extremity, appears consistent with cellulitis, no formed abscess. Dr. Pringle 1836 Medical Decision Making Additional Comment 63-year-old male presenting with a left lower extremity wound with ensuing cellulitis. Work was started with labs and imaging and is pending at this time. Patient was medicated for pain with 4 mg of IV morphine and 4 mg of IV Zofran for potential nausea. He will be signed out to the incoming ED physician for final disposition. Departure Impression: Primary Impression: Amputation stump infection Referrals: NO PRIMARY CARE PROVIDER (PCP) Signature Scribe Signature: na Attestation: RONAK Diamond MD November 07, 2024 17:23 NOBLE PRINGLE MD November 07, 2024 18:02
[2024-11-07] MEDS ORDERED: VANCOmycin 1250MG/NS 250ml Bag 250 ML IV SCH (17:25)
--- NOTE | 2024-11-07 17:59 | RADIOLOGY REPORT ---
INDICATION: LEFT LE cellulitis- assess for nec fasc and osteo COMPARISON: MRI LOWER EXTREMITY LEFT on DOS: 04/16/19 TECHNIQUE: CT of the left lower extremity was performed without contrast. Volume transverse images we re obtained and reconstructed in multiple planes using bone and soft tissue algorithms. Radiation Dose Information: CT Dose: CTDI volume is 16.7 mGy. Dose-length product is 610 mGy*cm FINDINGS: Extensive fat stranding and phlegmonous changes are seen throughout the left lower extremity, most pr ominent in the prepatellar region, suggestive of cellulitis. No discrete abscess identified. No soft tissue gas. No osseous destructive changes. The alignment is normal. Moderate degenerative arthrosis of the medial and lateral knee compartments There is no fracture, dislocation or aggressive osseous lesion. There is no joint effusion. IMPRESSION: 1. Extensive fat stranding and phlegmonous changes are seen throughout the left lower extremity, most prominent in the prepatellar region, suggestive of cellulitis. No discrete abscess identified. No soft tissue gas. 2. No acute fracture or dislocation. 3. All CT scans at this medical facility are performed using dose modulation techniques as appropriat e to a performed exam including the following: Automated exposure control was utilized; adjustment of the MA and/or KV according to patient size; and use of iterative reconstruction technique.
[2024-11-07] MEDS: piperacillin/tazo 3.375gm/50ml 50 ML IV SCH (18:16)
[2024-11-07] MEDS: morphine 4 MG/ML inj SYRINge IV ONE (18:16)
[2024-11-07] MEDS: ondansetron/PF 4mg/2ml inj IV ONE (18:16)
[2024-11-07 18:45] LABS: BASOPHILS % (AUTO) 0.6 % (0-1); EOSINOPHILS # (AUTO) 0.1 X10'3 (0-0.9); EOSINOPHILS % (AUTO) 2.1 % (0-6); HEMATOCRIT 30.5 % (42.0-52.0); HEMOGLOBIN 10.3 g/dl (14.0-17.9); LYMPHOCYTES # (AUTO) 1.1 X10'3 (1.1-4.8); LYMPHOCYTES % (AUTO) 18.6 % (21-51); MEAN CORPUSCULAR HGB CONC 33.6 g/dL (33.0-36.5); MEAN CORPUSCULAR VOLUME 80.3 FL (78-98); MEAN PLATELET VOLUME 7.1 FL (7.4-10.4); MONOCYTES # (AUTO) 0.6 X10'3 (0-0.9); MONOCYTES % (AUTO) 9.7 % (2-12); NEUTROPHILS # (AUTO) 4.2 X10'3 (1.8-7.7); PLATELET COUNT 254 X10'3 (140-440); RED CELL DISTRIBUTION WIDTH 14.5 % (11.5-14.5); WHITE BLOOD COUNT 6.1 X10'3 (4.5-11.0)
[2024-11-07 18:53] LABS: ALBUMIN 2.1 G/DL (3.4-5.0); ANION GAP 7 (8-16); BLOOD UREA NITROGEN 10 MG/DL (7-18); BUN/CREATININE RATIO 8.1 (10.0-20.0); CALCIUM 8.4 MG/DL (8.5-10.1); CHLORIDE 102 MMOL/L (99-107); CREATININE 1.23 MG/DL (0.60-1.10); GLUCOSE 125 MG/DL (70-104); POTASSIUM 4.1 MMOL/L (3.5-5.1); SODIUM 138 MMOL/L (135-145); TOTAL CARBON DIOXIDE 28.9 MMOL/L (24-32); eCRCL 58 ML/MIN; eGFR 59 ML/MIN
[2024-11-07] MEDS: vancomycin/NS 1 GM ADD-VANTAGE 250 ML X 1 DOSE IV ONE (19:55)
[2024-11-07] MEDS ORDERED: potassium Cl 40MEQ/1/2NS 520ml 520 ML IV PRN (21:30)
[2024-11-07] MEDS ORDERED: mag hydrox/Alum hydrox/simeth 30ml oral suspension PO PRN (21:30)
[2024-11-07] MEDS ORDERED: potassium Cl 20 mEq SR tablet PO PRN ×2 (21:30)
[2024-11-07] MEDS ORDERED: acetaminophen 325mg tablet PO PRN (21:30)
[2024-11-07] MEDS ORDERED: ondansetron/PF 4mg/2ml inj IV PRN (21:30)
[2024-11-07] MEDS ORDERED: magnesium sulf-water 2g/50mL 50 ML IV PRN (21:30)
[2024-11-07] MEDS ORDERED: magnesium Cl slow-release 64mg tablet PO PRN (21:30)
[2024-11-07] MEDS ORDERED: HYDROcodone/acetaminophen 5mg/325mg tablet PO PRN (21:30)
[2024-11-07] MEDS ORDERED: magnesium sulf-water 4G/100mL 100 ML IV PRN (21:30)
[2024-11-07] MEDS ORDERED: morphine 2 MG/ML inj. syringe IV PRN ×2 (21:30)
[2024-11-07 22:04] LABS: HEMOGLOBIN A1C 7.5 % (4.5-6.2)
[2024-11-07 22:08] LABS: ALANINE AMINOTRANSFERASE 10 U/L (12-78); ALBUMIN/GLOBULIN RATIO 0.4 (1.1-1.5); ALKALINE PHOSPHATASE 85 IU/L (46-116); ASPARTATE AMINO TRANSFERASE 14 U/L (10-37); BILIRUBIN,DIRECT 0.2 MG/DL (0-0.3); BILIRUBIN,TOTAL 0.4 MG/DL (0.1-1.0); MAGNESIUM 1.4 MG/DL (1.5-2.4); PRO BRAIN NATRIURETIC PEPTIDE 2012 PG/ML (0-125); TOTAL PROTEIN 6.9 G/DL (6.4-8.2)
[2024-11-07] MEDS: normal saline 1000ml 1,000 ML IV SCH (22:59)
--- NOTE | 2024-11-07 23:51 | HISTORY AND PHYSICAL-Residence ---
History & Physical Providers to CC Resident Creating Document: GIFTY OTERO, RES ~ History of Present Illness Primary Medical Doctor: Dr. BOWDEN Reason for Admit\Complaint: Stump cellulitis History of Present Illness This is a 63-year-old male with history of bilateral BKA, type 2 diabetes mellitus, AFib, methamphetamine use, dyslipidemia came to the ER with a chief complaint of pain at the site of left BKA since one day. He recently developed a wound at the site of BKA, is red and painful. Denies any trauma at the site. Denies any fever and chills. Denies any discharge or malodor at the site of wound. He lives in a trailer, previously he had prosthesis, but lost them admission, the wheelchair is also broken, crawls around to move. Denies any other complaints of chest pain, palpitations, shortness of breadth. Allergies: Coded Allergies: Sulfa (Sulfonamide Antibiotics) (Verified Allergy, Unknown, 12/07/23) Home Medications Home Medications Active [tamsulosin capsule] 0.4 MG Cap 0.4 Mg PO HS 30 Days Furosemide 40 Mg Tablet 40 Mg PO QAM 30 Days Reported Ropinirole Hcl 0.5 Mg Tablet 1 Tab PO TID Clopidogrel (Clopidogrel Bisulfate) 75 Mg Tablet 1 Tab PO DAILY Buprenorphine Hcl 2 Mg Tab.subl 2 Tab SL TID LYRICA capsule (Pregabalin) 75 Mg Capsule 1 Cap PO BID PRN Cartia Xt (Diltiazem HCl) 180 Mg Cap.er.24h 180 Mg PO DAILY Lisinopril 5 Mg Tablet 5 Mg PO DAILY Spironolactone 50 Mg Tablet 50 Mg PO QAM Metformin HCl 500 Mg Tablet 500 Mg PO TID Duloxetine HCl 60 Mg Capsule.dr 1 Cap PO DAILY 30 Days Zanaflex (Tizanidine HCl) 2 Mg Tablet 1 Tab PO BID PRN 30 Days Lantus (Insulin Glargine,Hum.rec.anlog) 100 Unit/1 Ml Vial 40 Units SQ HS Insulin Lispro 100 Unit/1 Ml Vial 4-12 Units SQ TID PER SLIDING SCALE Metoprolol Tartrate 50 Mg Tablet 0.5 Tab PO BID Bupropion Xl (Bupropion HCl) 150 Mg Tab.er.24h 1 Tab PO DAILY Oxycodone-Acetaminophen 10-325 (Oxycodone Hcl/Acetaminophen) 1 Each Tablet 1 Tab PO TID PRN Zocor* (Simvastatin) 20 Mg Tablet 1 Tab PO HS Onglyza (Saxagliptin Hydrochloride) 5 Mg Tablet 1 Tablet PO DAILY Past Medical History Past Medical History AFib, currently on metoprolol, according to patient he has never been on any blood thinner. Hypertension Type 2 diabetes mellitus History of chronic back pain. History of depression. 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 Quit smoking pipe three years ago Drinks alcohol about once a week, one glass of whiskey Methamphetamine use, twice a week, inhalation Lives in a trailer His wheelchair is broken, lost prosthetic at [place]. Currently crawling for moving. Smoking: Non-Smoker Alcohol Use: Occasionally Drug Use: Methamphetamine Lives In: Home Past Social History: Quit smoking 2016 ROS All Other Systems: Reviewed and Negative Constitutional: Denies: no symptoms reported, see HPI, chills, diaphoresis, fever, malaise, weakness, other Eyes: Denies: no symptoms reported, see HPI, pain, discharge, blurred vision, double vision, itching, photophobia, redness, tearing, other ENT: Denies: no symptoms reported, see HPI, ear pain, ear bleeding, ear discharge, hearing loss, ear ringing, nose pain, nose bleeding, nose congestion, nose discharge, throat pain, throat swelling, voice change, mouth pain, mouth bleeding, mouth swelling, other Respiratory: Denies: no symptoms reported, see HPI, cough, orthopnea, shortness of breath, SOB with exertion, SOB at rest, stridor, wheezing, hemoptysis, pain with breathing, other Cardiovascular: Denies: no symptoms reported, see HPI, chest pain, left arm pain, diaphoresis, lightheadedness, syncope, edema, palpitations, irregular heart rate, other Gastrointestinal: Denies: no symptoms reported, see HPI, abdomen distended, abdominal pain, nausea, vomiting, diarrhea, constipated, melena, hematemesis, hematochezia, rectal bleeding, rectal pain, dysphagia, poor appetite, poor fluid intake, other Genitourinary: Denies: no symptoms reported, see HPI, burning, discharge, dysuria, frequency, flank pain, hematuria, incontinence, pain, decreased urine output, urgency, other Male Genitalia: Denies: no symptoms reported, see HPI, penile discharge, penile sore, testicular pain, testicular swelling, other Musculoskeletal: Reports: see HPI Integumentary: Reports: see HPI Exam Vitals: Vital Signs Date Time Temp Pulse Resp B/P (MAP) Pulse Ox O2 Delivery O2 Flow Rate FiO2 11/07/24 22:42 16 11/07/24 21:39 53 99 0 11/07/24 16:33 98.1 General: General: Awake, alert, oriented, not in acute distress HEENT: Conjunctiva pink, Sclera clear, Mucus Membranes moist. Neck: Supple without masses and tenderness. Resp: Unlabored. Lungs clear to auscultation bilaterally. Heart: Regular Rate and rhythm, normal S1 and S2 without murmur, rub or gallop. Abdomen: Soft and non tender no organomegaly, no rigidity, normal bowel sounds Extremities: Bilateral BKA Wound present over the distal left lower extremity with surrounding edema, erythema and tenderness to palpation extending up to the knee. CIRCLE EDGER: No focal neurological deficits Diagnostic Data Last Recorded Lab Results: 11/07/24183611/07/241836 Advance Care Planning Advanced Care plannin - 30 Minutes (I spent about 17 minutes in discussing various resuscitative measures, the patient chose to be DNR.) Additional Plan Assessment This is a 63-year-old male with history of bilateral BKA, type 2 diabetes mellitus, AFib came to the ER with a chief complaint of pain and redness at the site of left BKA. Patient is being admitted for cellulitis Plan Cellulitis at the site of left BKA WBC count, lactic acid, procalcitonin in the normal range. Lower extremity CT Extensive fat stranding and phlegmonous changes are seen throughout the left lower extremity, most prominent in the prepatellar region, suggestive of cellulitis. No discrete abscess identified. Continued on vancomycin and Zosyn Wound care consult requested. History of AFib Currently in controlled ventricular rate Abel Vasc score 4 Currently sinus rhythm. Patient's home medication include diltiazem and metoprolol tartrate at the time of discharge during previous hospitalization. External med history shows metoprolol. Patient is not sure of the medications he is currently taking. Continue home medications once the med rec is done. Patient has never been on blood thinners. History of methamphetamine induced cardiomyopathy Heart failure with reduced ejection fraction, not in acute exacerbation ProBNP 2011 Chest x-ray shows mild cardiomegaly, no evidence of pulmonary congestion Echo in 11/10/2023 showed ejection fraction of 55-60%, mild concentric hypertrophy of left ventricle Repeat echo ordered Continue patient's home medication lisinopril, metoprolol, Aldactone once the med rec is done. Consider starting Jardiance. History of hypertension Continue home medications once the med rec is done Type 2 diabetes mellitus A1c 7.5 Started on Lantus 20 units and medial dose insulin protocol History of peripheral neuropathy Continue patient's home medication gabapentin once the med rec is done. History of methamphetamine use U tox ordered Social service consult requested History of urine incontinence Continue patient's home medication tamsulosin once the med rec is done. Code status: DNR DVT prophylaxis: Heparin GI prophylaxis: Pantoprazole Diet: Carb controlled diet Line/tubes: Peripheral IV line Prognosis: Guarded Gifty Otero M.D PGY1 Pt seen and discussed with the resident team At this time with features of stump cellulitis Started on broad spectrum antibiotics will monitor will invite wound care team to help with dressing and management. Date of Service: November 07, 2024 Billing Provider: EZEQUIEL DAMON MD, PRAVAHIKA, RES November 07, 2024 23:51 EZEQUIEL DAMON MD November 08, 2024 06:47
[2024-11-08] MEDS ORDERED: glucagon, human recombinant 1mg kit SUBCUT PRN (00:20)
[2024-11-08] MEDS ORDERED: DEXTROSE 15 GM of carb/4 tabs (each vial/BOTTLE has 4 tablets) PO PRN ×2 (00:20)
[2024-11-08] MEDS ORDERED: dextrose 50%-water 50ml dispensing syringe IV PRN ×2 (00:20)
[2024-11-08] MEDS: piperacillin/tazo 4.5gm/100ml 100 ML IV SCH (00:33)
[2024-11-08 00:47] LABS: BILIRUBIN,URINE NEGATIVE (Neg); CLARITY,URINE CLEAR (Clear); COLOR,URINE YELLOW (Yellow); GLUCOSE, URINE NEGATIVE (Neg); KETONES,URINE NEGATIVE (Neg); LEUKOCYTE ESTERASE ,URINE NEGATIVE (Neg); NITRITES, URINE NEGATIVE (Neg); OCCULT BLOOD,URINE TRACE-INTACT (Neg); PROTEIN,URINE NEGATIVE (Neg); UROBILINOGEN,URINE 0.2 E.U/dL (0.2-1.0)
[2024-11-08 00:51] LABS: UA COLLECTION TYPE NON-SPECIFIED
[2024-11-08 00:54] LABS: BACTERIA,URINE FEW /HPF (Neg); SQUAMOUS EPITHELIAL CELL,UR NONE SEEN /LPF (FEW); URINE AMPHETAMINE SCREEN POSITIVE (Neg); URINE BARBITUATE SCREEN NEGATIVE (Neg); URINE BENZODIAZEPINES SCREEN NEGATIVE (Neg); URINE CANNABINOID SCREEN NEGATIVE (Neg); URINE COCAINE SCREEN NEGATIVE (Neg); URINE METHADONE SCREEN NEGATIVE (Neg); URINE OPIATE SCREEN POSITIVE (Neg); URINE PHENCYCLIDINE SCREEN NEGATIVE (Neg); WBC,URINE 0-4 /HPF (0-4)
[2024-11-08 01:31] LABS: BASOPHILS % (AUTO) 0.4 % (0-1); EOSINOPHILS # (AUTO) 0.2 X10'3 (0-0.9); EOSINOPHILS % (AUTO) 2.8 % (0-6); HEMATOCRIT 32.5 % (42.0-52.0); HEMOGLOBIN 10.7 g/dl (14.0-17.9); LYMPHOCYTES % (AUTO) 18.9 % (21-51); MEAN CORPUSCULAR HEMOGLOBIN 26.7 PG (27.0-31.0); MEAN CORPUSCULAR HGB CONC 33.1 g/dL (33.0-36.5); MEAN CORPUSCULAR VOLUME 80.9 FL (78-98); MEAN PLATELET VOLUME 7.3 FL (7.4-10.4); MONOCYTES # (AUTO) 0.4 X10'3 (0-0.9); NEUTROPHILS # (AUTO) 3.7 X10'3 (1.8-7.7); NEUTROPHILS % (AUTO) 69.9 % (42-75); PLATELET COUNT 253 X10'3 (140-440); RED BLOOD COUNT 4.02 X10'6 (4.70-6.10); RED CELL DISTRIBUTION WIDTH 14.2 % (11.5-14.5); WHITE BLOOD COUNT 5.3 X10'3 (4.5-11.0)
[2024-11-08 01:47] LABS: ALBUMIN 1.9 G/DL (3.4-5.0); ANION GAP 3 (8-16); BLOOD UREA NITROGEN 11 MG/DL (7-18); BUN/CREATININE RATIO 8.9 (10.0-20.0); CALCIUM 8.3 MG/DL (8.5-10.1); CHLORIDE 103 MMOL/L (99-107); CHOL/HDL RATIO 2.9 (0.00-4.99); CHOLESTEROL 109 MG/DL (0-200); CREATININE 1.24 MG/DL (0.60-1.10); GLUCOSE 188 MG/DL (70-104); HDL CHOLESTEROL 37 MG/DL (35-60); LDL CHOLESTEROL 60 MG/DL (50-100); MAGNESIUM 1.5 MG/DL (1.5-2.4); SODIUM 139 MMOL/L (135-145); TOTAL CARBON DIOXIDE 32.6 MMOL/L (24-32); TRIGLYCERIDES 91 MG/DL (20-135); eCRCL 57 ML/MIN; eGFR 59 ML/MIN
[2024-11-08] MEDS ORDERED: PREG100C56 PO (05:19)
[2024-11-08] MEDS ORDERED: [UNRECOGNIZED DRUG - CODE] (05:19)
[2024-11-08] MEDS ORDERED: LANTUS SQ (05:19)
[2024-11-08 07:09] VITALS: BP 112/46; PULSE 58; RESP 16; TEMP 97.5; O2SAT 96
[2024-11-08 08:00] VITALS: RESP 16; O2SAT 97
[2024-11-08] MEDS: K and/or MAG REPLACEMENT MC SCH (08:00)
[2024-11-08] MEDS: INSULIN LISPRO 100 UNIT/ML INSULN.PEN MULTI-DOSE SQ SCH (08:01)
[2024-11-08] MEDS: vancomycin/NS 1 GM ADD-VANTAGE 250 ML IV SCH (08:24)
[2024-11-08] MEDS: heparin, porcine 5000 units/ml vial SQ SCH (08:24)
[2024-11-08] MEDS: pantoprazole 40mg Tablet.DR PO SCH (08:25)
[2024-11-08] MEDS: docusate sod 100mg capsule PO SCH (08:25)
[2024-11-08] MEDS: metoprolol tartrate 25mg tablet PO SCH (08:25)
[2024-11-08] MEDS: lisinopril 5mg tablet PO SCH (08:26)
[2024-11-08] MEDS: pregabalin 75mg capsule PO SCH (08:26)
[2024-11-08] MEDS: HYDROcodone/acetaminophen 10/325mg tab PO PRN (10:36)
--- NOTE | 2024-11-08 15:50 | PROGRESS NOTE- Residence ---
Progress Note - Resident Providers to CC Resident Creating Document: MAZIN ARGUETA RES ~ Antibiotic Timeout Antibiotic Ordered?: Yes Subjective Patient was seen and examined on his bed this morning. Patient has left-sided BKA stump was complicated with the pressure like open wound at the tip of the stump with some granulation tissue which were secured with foam dressing. Objective Vital Signs Date Time Temp Pulse Resp B/P (MAP) Pulse Ox O2 Delivery O2 Flow Rate FiO2 11/08/24 12:20 16 11/08/24 08:26 90 11/08/24 08:00 97 Room Air 0.0 11/08/24 07:09 97.5 112/46 (68) Result Diagram: 11/08/24 0105 11/08/24 0105 Vitals were stable at the moment. General: Well alert, well oriented, not confused, not agitated, not in acute distress, well cooperated during the physical. HEENT: Conjunctive are pink, sclerae clear, no icterus, pupil is equal in both sides, reactive to light, no ear discharge, no pharyngeal erythema or an edema, mouth and lips are moist. Neck: Supple, no JVD, no lymphadenopathy and thyromegaly. Lungs:Equal air entry on both lungs, no additional sounds Heart: S1-S2 regular sinus rhythm and, regular rate, no gallops, no rubs, no murmurs Abdomen: No visible peristalsis, Bowel sounds present on auscultation, soft, nontender, no guarding, no rigidity Extremities: BIlateral BKA stumps with posterior flapping. Over the left stump, 4 x 5 cm rounded pressure like opend wound with the some healthy granulation tissue at the rim and some pus like matters inside, which was secured with the foam dressing. No obvious deformities, no pitting edema bilaterally, peripheral pulsations are intact on both sides TAKER OFF DRYING KILN: No focal neurological deficits, no motor and sensory weakness in all 4 extremities, could move all 4 extremities Musculoskeletal: No joint swelling, deformities, inflammations, and no scoliosis and back tenderness Skin: No active skin lesions and rashes Assessment Assessment A 63-year-old male with a past medical history of bilateral BKA, T2 DM, AFib with CVR with no anticoagulation, HTN, HLD, chronic back pain and pain syndrome, depression presented with painful erythematous open wound over left BKA stump and he was admitted to hospital for further management including cellulitis management. Plan Plan # Left BKA stump open wound # Cellulitis 11/08/2024: Continue wound care, dressing properly -pain control with pregabalin, morphine, [place] as needed -downgraded the IV vancomycin and Zosyn x 1D into IV doxycycline -PT eval with the prosthesis 11/07/2024: WBC count, lactic acid, procalcitonin in the normal range. Lower extremity CT Extensive fat stranding and phlegmonous changes are seen throughout the left lower extremity, most prominent in the prepatellar region, suggestive of cellulitis. No discrete abscess identified. Continued on vancomycin and Zosyn Wound care consult requested. # Paroxysmal AFib with CVR on no anticoagulation # Abel Vasc score 4 11/08/2024: Continue metoprolol 12.5 mg b.i.d. after medication reconciliation was done and a his current blood pressure is soft with 110/50 mm Hg, held diltiazem -heart rate is ranging around 90s -not on anticoagulation, only on clopidogrel which was continue after medication reconciliation 11/07/2024: Currently sinus rhythm. Patient's home medication include diltiazem and metoprolol tartrate at the time of discharge during previous hospitalization. External med history shows metoprolol. Patient is not sure of the medications he is currently taking. Continue home medications once the med rec is done. Patient has never been on blood thinners. # history of methamphetamine induced cardiomyopathy # HFpEF 55-60% on 11/10/23, pulmonary hypertension 11/08/2024: Pending 2D echocardiogram, last time 2D echocardiogram showed LVEF 55-60% with RV hypertrophy and a PASP 33 mm Hg -currently not in acute exacerbation, so held Lasix and spironolactone from home medication with BP is soft -continue home medications after medication reconciliation was done -started Jardiance 10 mg daily for his preserved ejection fraction heart failure 11/07/2024: ProBNP 2011 Chest x-ray shows mild cardiomegaly, no evidence of pulmonary congestion Echo in 11/10/2023 showed ejection fraction of 55-60%, mild concentric hypertrophy of left ventricle Repeat echo ordered Continue patient's home medication lisinopril, metoprolol, Aldactone once the med rec is done. Consider starting Jardiance. # history of hypertension # T2DM 11/08/2024: Continue current insulin therapy -blood pressure is on the soft side, just continue lisinopril 5 mg daily to control blood pressure 11/07/2024: A1c 7.5 Started on Lantus 20 units and medial dose insulin protocol # history of peripheral neuropathy Vs post BKA stump pain (Phantom pain) 11/08/2024: Continue pregabalin 75 mg b.i.d. only for his leg pain in the setting of soft BP # Hx of meth and opiate abuse 11/08/2024: manager student services were requested, appreciate, UTox positive for opiates and methamphetamine # hx of urine incontinence # Possible BPH Continue tamsulosin from home medication after medication reconciliation was done CODE STATUS: DNR DVT prophylaxis: Sc heparin Analgesia/sedation: Acetaminophen, morphine, [place] Lines/tubes: Peripheral IV GI prophylaxis: Pantoprazole Nutrition: Carb controlled Prognosis: Guarded Disposition: Continue medical management, wound care, IV antibiotics, PT eval with prosthesis, and a DC plan including mission/rehab placement Resident MD attestation: Patient was seen, examined and discussed with attending MD, Dr. Samy ARGUETA MD Internal Medicine Resident, PGY2 [facility] Date of Service: November 08, 2024 Billing Provider: JB KONG MD Common Visit Codes: [id number] INP/OBS CARE(HIGH) MAZIN ARGUETA RES November 08, 2024 15:50 JB KONG MD November 08, 2024 17:49
[2024-11-08] MEDS: EMPAGLIFLOZIN 10 MG TABLET PO SCH (17:00)
[2024-11-08 18:00] VITALS: BP 132/67; PULSE 61; RESP 18; TEMP 97.2; O2SAT 95
[2024-11-08] MEDS: normal saline 1000ml 1,000 ML IV SCH (18:05)
[2024-11-08 19:00] VITALS: BP 132/62; PULSE 61; RESP 16; RESP 18; TEMP 97.2; O2SAT 95
[2024-11-08] MEDS: doxycycline inj 100 MG in normal saline 100ml IV soln 100 ML IV SCH (20:33)
[2024-11-08] MEDS: tamsulosin 0.4mg capsule PO SCH (20:56)
[2024-11-08] MEDS: buprenorphine/naloxone 2-0.5mg sublingual tablet SL SCH (20:56)
[2024-11-08] MEDS: ROPINIRole 0.25mg tablet PO SCH (20:56)
[2024-11-08] MEDS: simvastatin 20mg tablet PO SCH (20:56)
[2024-11-08] MEDS: insulin glargine (Lantus) pen - multi-dose SQ SCH (21:20)
[2024-11-09 06:00] VITALS: BP 109/57; PULSE 60; RESP 16; TEMP 97.9; O2SAT 94
[2024-11-09] MEDS ORDERED: VANCOMYCIN LEVEL IV ONE (07:30)
[2024-11-09 08:00] VITALS: RESP 18; O2SAT 96
[2024-11-09] MEDS: lisinopril 5mg tablet PO SCH (08:00)
[2024-11-09] MEDS: metoprolol tartrate 25mg tablet PO SCH (08:19)
[2024-11-09] MEDS: clopidogrel 75mg tablet PO SCH (08:19)
[2024-11-09 08:21] LABS: BASOPHILS % (AUTO) 0.5 % (0-1); EOSINOPHILS # (AUTO) 0.1 X10'3 (0-0.9); EOSINOPHILS % (AUTO) 1.8 % (0-6); LYMPHOCYTES # (AUTO) 1.7 X10'3 (1.1-4.8); LYMPHOCYTES % (AUTO) 26.8 % (21-51); MEAN CORPUSCULAR HEMOGLOBIN 26.8 PG (27.0-31.0); MEAN CORPUSCULAR HGB CONC 33.4 g/dL (33.0-36.5); MEAN CORPUSCULAR VOLUME 80.2 FL (78-98); MEAN PLATELET VOLUME 7.2 FL (7.4-10.4); MONOCYTES # (AUTO) 0.4 X10'3 (0-0.9); MONOCYTES % (AUTO) 6.6 % (2-12); NEUTROPHILS # (AUTO) 4.1 X10'3 (1.8-7.7); NEUTROPHILS % (AUTO) 64.3 % (42-75); PLATELET COUNT 309 X10'3 (140-440); RED BLOOD COUNT 4.49 X10'6 (4.70-6.10); RED CELL DISTRIBUTION WIDTH 14.3 % (11.5-14.5); WHITE BLOOD COUNT 6.3 X10'3 (4.5-11.0)
[2024-11-09] MEDS: duloxetine 30mg CAPSULE.DR PO SCH (08:21)
[2024-11-09 08:24] LABS: ANION GAP 8 (8-16); CALCIUM 8.8 MG/DL (8.5-10.1); CHLORIDE 103 MMOL/L (99-107); CREATININE 1.28 MG/DL (0.60-1.10); MAGNESIUM 1.7 MG/DL (1.5-2.4); POTASSIUM 4.2 MMOL/L (3.5-5.1); SODIUM 138 MMOL/L (135-145); TOTAL CARBON DIOXIDE 27.1 MMOL/L (24-32); eCRCL 56 ML/MIN; eGFR 56 ML/MIN
[2024-11-09 08:37] LABS: ALBUMIN 2.3 G/DL (3.4-5.0); BLOOD UREA NITROGEN 14 MG/DL (7-18); BUN/CREATININE RATIO 10.9 (10.0-20.0); GLUCOSE 128 MG/DL (70-104); VANCOMYCIN,TROUGH 8.7 ug/mL (10.0-20.0)
[2024-11-09 10:00] VITALS: BP 135/64; PULSE 65; RESP 18; TEMP 97.2; O2SAT 97
--- NOTE | 2024-11-09 10:27 | PROGRESS NOTE- Residence ---
Progress Note - Resident Providers to CC Resident Creating Document: MAZIN ARGUETA RES ~ Antibiotic Timeout Antibiotic Ordered?: Yes Subjective pt was seen on his bed sleeping comfortably. He was evaluated by PT and the discharged plan recommended for placement as the patient has stairs at his place although he was able to move and transfer to the chair. Awaiting possible placement management. We will pull up and check the [facility] record the patient due to patient's history of chronic pain syndrome. Patient also complained about the constipation as well. Objective Vital Signs Date Time Temp Pulse Resp B/P (MAP) Pulse Ox O2 Delivery O2 Flow Rate FiO2 11/09/24 08:19 65 11/09/24 08:00 18 96 Room Air 0.0 11/08/24 19:00 21 11/08/24 19:00 97.2 132/62 (85) Result Diagram: 11/09/24 0757 11/09/24 0757 Vitals were stable at the moment. General: Well alert, well oriented, not confused, not agitated, not in acute distress, well cooperated during the physical. HEENT: Conjunctive are pink, sclerae clear, no icterus, pupil is equal in both sides, reactive to light, no ear discharge, no pharyngeal erythema or an edema, mouth and lips are moist. Neck: Supple, no JVD, no lymphadenopathy and thyromegaly. Lungs:Equal air entry on both lungs, no additional sounds Heart: S1-S2 regular sinus rhythm and, regular rate, no gallops, no rubs, no murmurs Abdomen: No visible peristalsis, Bowel sounds present on auscultation, soft, nontender, no guarding, no rigidity Extremities: BIlateral BKA stumps with posterior flapping. Over the left stump, 4 x 5 cm rounded pressure like opend wound with the some healthy granulation tissue at the rim and some pus like matters inside, which was secured with the foam dressing. No obvious deformities, no pitting edema bilaterally, peripheral pulsations are intact on both sides CONSTRUCTION AREA MANAGER: No focal neurological deficits, no motor and sensory weakness in all 4 extremities, could move all 4 extremities Musculoskeletal: No joint swelling, deformities, inflammations, and no scoliosis and back tenderness Skin: No active skin lesions and rashes Assessment Assessment A 63-year-old male with a past medical history of bilateral BKA, T2 DM, AFib with CVR with no anticoagulation, HTN, HLD, chronic back pain and pain syndrome, depression presented with painful erythematous open wound over left BKA stump and he was admitted to hospital for further management including cellulitis management. Plan Plan # Left BKA stump open wound # Cellulitis 11/09/2024: Good air you IV doxycycline day two -continue wound care - possible placement management and bilingual social worker to arrange for the daily ambulation purposes. 11/08/2024: Continue wound care, dressing properly -pain control with pregabalin, morphine, [place] as needed -downgraded the IV vancomycin and Zosyn x 1D into IV doxycycline -PT eval with the prosthesis 11/07/2024: WBC count, lactic acid, procalcitonin in the normal range. Lower extremity CT Extensive fat stranding and phlegmonous changes are seen throughout the left lower extremity, most prominent in the prepatellar region, suggestive of cellulitis. No discrete abscess identified. Continued on vancomycin and Zosyn Wound care consult requested. # Paroxysmal AFib with CVR on no anticoagulation # Abel Vasc score 4 11/09/2024: Maintaining a stable heart rate around 60s, did not complain any chest pain/pressure/discomfort and palpitations and lightheadedness and dizziness at the moment. -continue [place] agent metoprolol 12.5 mg b.i.d., BP is stabilized around 130/60 - anticoagulation Eliquis 5 mg b.i.d. was started today. 11/08/2024: Continue metoprolol 12.5 mg b.i.d. after medication reconciliation was done and a his current blood pressure is soft with 110/50 mm Hg, held diltiazem -heart rate is ranging around 90s -not on anticoagulation, only on clopidogrel which was continue after medication reconciliation 11/07/2024: Currently sinus rhythm. Patient's home medication include diltiazem and metoprolol tartrate at the time of discharge during previous hospitalization. External med history shows metoprolol. Patient is not sure of the medications he is currently taking. Continue home medications once the med rec is done. Patient has never been on blood thinners. # history of methamphetamine induced cardiomyopathy # HFpEF 50-55 % on 11/10/23, pulmonary hypertension 11/09/2024: 2D echocardiogram showed mid anterior and inferoseptal segment and basal inferior segments are hypokinetic, mild concentric LV hypertrophy, LVEF 50-55%, RV moderately dilated with reduced function, RVSP 50 mm Hg, LA mildly dilated, mild MR and normal pericardium and no effusion. -continue GDM T with metoprolol, Jardiance, lisinopril etc. 11/08/2024: Pending 2D echocardiogram, last time 2D echocardiogram showed LVEF 55-60% with RV hypertrophy and a PASP 33 mm Hg -currently not in acute exacerbation, so held Lasix and spironolactone from home medication with BP is soft -continue home medications after medication reconciliation was done -started Jardiance 10 mg daily for his preserved ejection fraction heart failure 11/07/2024: ProBNP 2011 Chest x-ray shows mild cardiomegaly, no evidence of pulmonary congestion Echo in 11/10/2023 showed ejection fraction of 55-60%, mild concentric hypertrophy of left ventricle Repeat echo ordered Continue patient's home medication lisinopril, metoprolol, Aldactone once the med rec is done. Consider starting Jardiance. # history of hypertension # T2DM 11/09/2024: Blood pressure stabilized around 130/60 -continue monitoring for blood sugar, average was around 130s 11/08/2024: Continue current insulin therapy -blood pressure is on the soft side, just continue lisinopril 5 mg daily to control blood pressure 11/07/2024: A1c 7.5 Started on Lantus 20 units and medial dose insulin protocol # history of peripheral neuropathy Vs post BKA stump pain (Phantom pain) 11/09/2025: Continue only pregabalin 75 mg b.i.d., creatinine 1.28 today, pain is well-controlled. 11/08/2024: Continue pregabalin 75 mg b.i.d. only for his leg pain in the setting of soft BP # Hx of meth and opiate abuse 11/08/2024: director of tax services were requested, appreciate it, UTox positive for opiates and methamphetamine # hx of urine incontinence # Possible BPH Continue tamsulosin from home medication after medication reconciliation was done CODE STATUS: DNR DVT prophylaxis: Sc heparin Analgesia/sedation: Acetaminophen, morphine, [place] Lines/tubes: Peripheral IV GI prophylaxis: Pantoprazole Nutrition: Carb controlled Prognosis: Guarded Disposition: Continue medical management, wound care, IV antibiotics, bilingual social worker, PT eval with prosthesis, and a DC plan including possible mission/rehab placement. Resident MD attestation: Patient was seen, examined and discussed with attending MD, Dr. Samy ARGUETA MD Internal Medicine Resident, PGY2 [facility] Date of Service: November 09, 2024 Billing Provider: JB KONG MD Common Visit Codes: [id number] INP/OBS CARE(HIGH) MAZIN ARGUETA RES November 09, 2024 10:27 JB KONG MD November 09, 2024 17:13
[2024-11-09] MEDS: magnesium hydroxide 30ml (MOM) UD suspension PO PRN (11:39)
--- NOTE | 2024-11-09 12:28 | CARDIOLOGY REPORT ---
APPROVED REPORT EXAM: Comprehensive 2D, Doppler, and color-flow Echocardiogram. 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 Previous echo: 11/04/2023 [facility] EF:55-60% 2D Dimensions RVDd 4.4 cm LA Diam4.3 cm IVSd 1.2 (0.7-1.1cm) LVDd 4.8 cm PWd 1.3 (0.7-1.1cm) IVSs 1.4 (0.8-1.2cm) RA Minor3.8 cmLVDs 3.4 (2.5-4.0cm) Aortic Root(2D) 3.8 cm PWs 1.4 (0.8-1.2cm) LVOT Diameter 2.21 (1.8-2.4cm) LVEF(%) 54.0 (>50%) FS (%) 27.9 % SV 57.6 ml CO 4.3 L/min M-Mode Dimensions RVDd 3.70 (2.1-3.2cm) Left Atrium(MM) 4.83 (2.5-4.0cm) IVSd 1.41 (0.7-1.1cm) LVDd 5.30 (4.0-5.6cm) PWd 1.21 (0.7-1.1cm) Aortic Cusp Exc 2.43 (1.5-2.0cm) IVSs 1.22 cm MV EPSS 0.5 (<0.5cm) LVDs 3.70 (2.0-3.8cm) FS (%) 31 % PWs 1.43 cm ESV(Teich) 52.0 ml LVEF(%) 55 (>50%) Aortic Valve AoV Peak Peterson. 108.8 cm/s AoV VTI 27.7 cm AO Peak GR. 4.7 mmHg AO Mean GR. 3 mmHg LVOT VTI 20.99 cm LVOT Peak Peterson. 89.7 cm/s VALERIA(VTI)/BSA 2.92 cm2/m2 VALERIA (VTI) 2.92 cm2 Mitral Valve MV E Velocity 71.3 cm/s MV Peak Gr. 3 mmHg MV DECEL TIME 284 ms MV A Velocity 84.1 cm/s MV Mean Gr. 1 mmHg MV PHT 72 ms E/A Ratio 0.8 MVA (PHT) 3.06 cm2 MV VMax86.8 cm/sMV VMean41.9 cm/s MVA VTI3.03 cm2MV VTI26.6 cm TDI Lateral E' P. V10.74 cm/s Medial E' P. V 8.92 cm/s E/Lateral E' 6.6 E/Medial E' 8.0 Tricuspid Valve TR P. Velocity 316 cm/s RAP ESTIMATE 10 mmHg TR Peak Gr. 40 mmHg RVSP 50 mmHg LEFT VENTRICLE Normal LV size with mildly reduced function. Mid fadumo- and inferoseptal segments are hypokinetic. M id and basal inferior segments are hypokinetic. Mild concentric hypertrophy. Overall LVEF is 50-55%. RIGHT VENTRICLE Right ventricle is mild to moderately dilated with reduced function. Estimated PA systolic pressure i s 50 mmHg. ATRIA Left atrium is mildly dilated. AORTIC VALVE Trileaflet AV appears sclerotic without stenosis. Trace insufficiency. MITRAL VALVE Mild MV annular calcification without stenosis. Mild regurgitation. TRICUSPID VALVE TV appears structurally normal with mild regurgitation. Elevated right heart pressures as noted above . PULMONIC VALVE Normal PV without stenosis, physiologic insufficiency. GREAT VESSELS Aortic root is mildly dilated. It measures 3.8 cm. IVC is not well visualized. PERICARDIUM Normal pericardium. No pericardial effusion seen. Other Information Study Quality: Adequate
[2024-11-09 18:00] VITALS: BP 135/70; PULSE 67; RESP 14; TEMP 97.8; O2SAT 96
[2024-11-09] MEDS: apixaban 5mg tablet PO SCH (21:22)
[2024-11-09] MEDS: metoprolol tartrate 12.5mg (1/2 tablet) PO SCH (21:26)
[2024-11-09 22:00] VITALS: BP 146/72; PULSE 65; RESP 16; TEMP 98; O2SAT 96
[2024-11-10 06:00] VITALS: BP 145/65; PULSE 59; RESP 16; TEMP 98.3; O2SAT 99
[2024-11-10 07:07] LABS: BASOPHILS % (AUTO) 0.3 % (0-1); EOSINOPHILS # (AUTO) 0.1 X10'3 (0-0.9); EOSINOPHILS % (AUTO) 2.4 % (0-6); HEMATOCRIT 32.4 % (42.0-52.0); HEMOGLOBIN 10.9 g/dl (14.0-17.9); LYMPHOCYTES # (AUTO) 1.2 X10'3 (1.1-4.8); LYMPHOCYTES % (AUTO) 30.8 % (21-51); MEAN CORPUSCULAR HGB CONC 33.8 g/dL (33.0-36.5); MEAN CORPUSCULAR VOLUME 79.8 FL (78-98); MEAN PLATELET VOLUME 7.1 FL (7.4-10.4); MONOCYTES # (AUTO) 0.3 X10'3 (0-0.9); NEUTROPHILS # (AUTO) 2.3 X10'3 (1.8-7.7); NEUTROPHILS % (AUTO) 58.5 % (42-75); PLATELET COUNT 288 X10'3 (140-440); RED BLOOD COUNT 4.06 X10'6 (4.70-6.10); RED CELL DISTRIBUTION WIDTH 14.1 % (11.5-14.5); WHITE BLOOD COUNT 3.9 X10'3 (4.5-11.0)
[2024-11-10 07:20] LABS: ANION GAP 6 (8-16); BLOOD UREA NITROGEN 12 MG/DL (7-18); BUN/CREATININE RATIO 11.4 (10.0-20.0); CALCIUM 8.1 MG/DL (8.5-10.1); CHLORIDE 102 MMOL/L (99-107); CREATININE 1.05 MG/DL (0.60-1.10); GLUCOSE 93 MG/DL (70-104); MAGNESIUM 1.6 MG/DL (1.5-2.4); POTASSIUM 3.7 MMOL/L (3.5-5.1); SODIUM 136 MMOL/L (135-145); TOTAL CARBON DIOXIDE 28.2 MMOL/L (24-32); eCRCL 68 ML/MIN; eGFR 71 ML/MIN
[2024-11-10 08:00] VITALS: RESP 16; O2SAT 99
[2024-11-10 10:00] VITALS: BP 109/55; PULSE 59; RESP 16; TEMP 97.8; O2SAT 95
[2024-11-10] MEDS: tizanidine 4mg tablet PO PRN (11:02)
--- NOTE | 2024-11-10 16:26 | PROGRESS NOTE- Residence ---
Progress Note - Resident Providers to CC Resident Creating Document: MAZIN ARGUETA RES ~ Antibiotic Timeout Antibiotic Ordered?: Yes Subjective Patient was lying comfortably on the bed this morning. Patient was explained that he is awaiting for the placement management including his ambulatory purposes. Objective Vital Signs Date Time Temp Pulse Resp B/P (MAP) Pulse Ox O2 Delivery O2 Flow Rate FiO2 11/10/24 10:59 59 11/10/24 06:00 98.3 16 145/65 (91) 99 Room Air 11/09/24 20:00 0.0 21 Result Diagram: 11/10/24 0637 11/10/24 06 Vitals were stable at the moment. General: Well alert, well oriented, not confused, not agitated, not in acute distress, well cooperated during the physical. HEENT: Conjunctive are pink, sclerae clear, no icterus, pupil is equal in both sides, reactive to light, no ear discharge, no pharyngeal erythema or an edema, mouth and lips are moist. Neck: Supple, no JVD, no lymphadenopathy and thyromegaly. Lungs:Equal air entry on both lungs, no additional sounds Heart: S1-S2 regular sinus rhythm and, regular rate, no gallops, no rubs, no murmurs Abdomen: No visible peristalsis, Bowel sounds present on auscultation, soft, nontender, no guarding, no rigidity Extremities: BIlateral BKA stumps with posterior flapping. Over the left stump, 4 x 5 cm rounded pressure like opend wound with the some healthy granulation tissue at the rim and some pus like matters inside, which was secured with the foam dressing. 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: No focal neurological deficits, no motor and sensory weakness in all 4 extremities, could move all 4 extremities Musculoskeletal: No joint swelling, deformities, inflammations, and no scoliosis and back tenderness Skin: No active skin lesions and rashes Assessment Assessment A 63-year-old male with a past medical history of bilateral BKA, T2 DM, AFib with CVR with no anticoagulation, HTN, HLD, chronic back pain and pain syndrome, depression presented with painful erythematous open wound over left BKA stump and he was admitted to hospital for further management including cellulitis management. Plan Plan # Left BKA stump open wound # Cellulitis 11/10/2024: Continue IV doxycycline day three -continue wound care -awaiting for social services coordinator, placement issue -control pain with Eldred 11/09/2024: Good air you IV doxycycline day two -continue wound care - possible placement management and social services coordinator to arrange for the daily ambulation purposes. 11/08/2024: Continue wound care, dressing properly -pain control with pregabalin, morphine, Eldred as needed -downgraded the IV vancomycin and Zosyn x 1D into IV doxycycline -PT eval with the prosthesis 11/07/2024: WBC count, lactic acid, procalcitonin in the normal range. Lower extremity CT Extensive fat stranding and phlegmonous changes are seen throughout the left lower extremity, most prominent in the prepatellar region, suggestive of cellulitis. No discrete abscess identified. Continued on vancomycin and Zosyn Wound care consult requested. # Paroxysmal AFib with CVR on no anticoagulation # Abel Vasc score 4 11/10/2024: Heart rate is stabilized around 60s -continue Eliquis, metoprolol 12.5 mg b.i.d. 11/09/2024: Maintaining a stable heart rate around 60s, did not complain any chest pain/pressure/discomfort and palpitations and lightheadedness and dizziness at the moment. -continue leland agent metoprolol 12.5 mg b.i.d., BP is stabilized around 130/60 - anticoagulation Eliquis 5 mg b.i.d. was started today. 11/08/2024: Continue metoprolol 12.5 mg b.i.d. after medication reconciliation was done and a his current blood pressure is soft with 110/50 mm Hg, held diltiazem -heart rate is ranging around 90s -not on anticoagulation, only on clopidogrel which was continue after medication reconciliation 11/07/2024: Currently sinus rhythm. Patient's home medication include diltiazem and metoprolol tartrate at the time of discharge during previous hospitalization. External med history shows metoprolol. Patient is not sure of the medications he is currently taking. Continue home medications once the med rec is done. Patient has never been on blood thinners. # history of methamphetamine induced cardiomyopathy # chronic HFpEF 50-55 % on 11/10/23, pulmonary hypertension 11/09/2024: 2D echocardiogram showed mid anterior and inferoseptal segment and basal inferior segments are hypokinetic, mild concentric LV hypertrophy, LVEF 50-55%, RV moderately dilated with reduced function, RVSP 50 mm Hg, LA mildly dilated, mild MR and normal pericardium and no effusion. -continue GDM T with metoprolol, Jardiance, lisinopril etc. 11/08/2024: Pending 2D echocardiogram, last time 2D echocardiogram showed LVEF 55-60% with RV hypertrophy and a PASP 33 mm Hg -currently not in acute exacerbation, so held Lasix and spironolactone from home medication with BP is soft -continue home medications after medication reconciliation was done -started Jardiance 10 mg daily for his preserved ejection fraction heart failure 11/07/2024: ProBNP 2011 Chest x-ray shows mild cardiomegaly, no evidence of pulmonary congestion Echo in 11/10/2023 showed ejection fraction of 55-60%, mild concentric hypertrophy of left ventricle Repeat echo ordered Continue patient's home medication lisinopril, metoprolol, Aldactone once the med rec is done. Consider starting Jardiance. # history of hypertension # T2DM 11/09/2024: Blood pressure stabilized around 130/60 -continue monitoring for blood sugar, average was around 130s 11/08/2024: Continue current insulin therapy -blood pressure is on the soft side, just continue lisinopril 5 mg daily to control blood pressure 11/07/2024: A1c 7.5 Started on Lantus 20 units and medial dose insulin protocol # history of peripheral neuropathy Vs post BKA stump pain (Phantom pain) 11/09/2025: Continue only pregabalin 75 mg b.i.d., creatinine 1.28 today, pain is well-controlled. 11/08/2024: Continue pregabalin 75 mg b.i.d. only for his leg pain in the setting of soft BP # Hx of meth and opiate abuse 11/08/2024: clinical services consultant were requested, appreciate it, UTox positive for opiates and methamphetamine # hx of urine incontinence # Possible BPH Continue tamsulosin from home medication after medication reconciliation was done CODE STATUS: DNR DVT prophylaxis: Sc heparin Analgesia/sedation: Acetaminophen, morphine, Eldred Lines/tubes: Peripheral IV GI prophylaxis: Pantoprazole Nutrition: Carb controlled Prognosis: Guarded Disposition: Continue medical management, wound care, IV antibiotics, social services coordinator including prosthesis/ wheelchair, and a DC plan including possible mission/rehab placement and placement management,. Resident MD attestation: Patient was seen, examined and discussed with attending MD, Dr. Michael ARGUETA MD Internal Medicine Resident, PGY2 [facility] Date of Service: November 10, 2024 Billing Provider: CRYSTAL ROSE MD, TIN, RES November 10, 2024 16:26
[2024-11-10 18:30] VITALS: BP 127/62; PULSE 64; RESP 18; TEMP 97.5; O2SAT 97
[2024-11-10 22:00] VITALS: BP 134/62; PULSE 65; RESP 15; TEMP 98.8; O2SAT 98
[2024-11-11 06:00] VITALS: BP 122/55; PULSE 59; RESP 16; TEMP 98.2; O2SAT 96
[2024-11-11 06:04] LABS: BASOPHILS % (AUTO) 0.2 % (0-1); EOSINOPHILS # (AUTO) 0.1 X10'3 (0-0.9); EOSINOPHILS % (AUTO) 2.2 % (0-6); HEMATOCRIT 32.1 % (42.0-52.0); HEMOGLOBIN 10.8 g/dl (14.0-17.9); LYMPHOCYTES # (AUTO) 1.5 X10'3 (1.1-4.8); LYMPHOCYTES % (AUTO) 32.3 % (21-51); MEAN CORPUSCULAR HEMOGLOBIN 26.8 PG (27.0-31.0); MEAN CORPUSCULAR HGB CONC 33.6 g/dL (33.0-36.5); MEAN CORPUSCULAR VOLUME 79.8 FL (78-98); MONOCYTES # (AUTO) 0.3 X10'3 (0-0.9); MONOCYTES % (AUTO) 7.7 % (2-12); NEUTROPHILS # (AUTO) 2.6 X10'3 (1.8-7.7); NEUTROPHILS % (AUTO) 57.6 % (42-75); PLATELET COUNT 278 X10'3 (140-440); RED BLOOD COUNT 4.02 X10'6 (4.70-6.10); RED CELL DISTRIBUTION WIDTH 14.1 % (11.5-14.5); WHITE BLOOD COUNT 4.5 X10'3 (4.5-11.0)
[2024-11-11 06:19] LABS: ANION GAP 5 (8-16); BLOOD UREA NITROGEN 16 MG/DL (7-18); BUN/CREATININE RATIO 16.5 (10.0-20.0); CALCIUM 8.2 MG/DL (8.5-10.1); CHLORIDE 103 MMOL/L (99-107); CREATININE 0.97 MG/DL (0.60-1.10); GLUCOSE 133 MG/DL (70-104); MAGNESIUM 1.6 MG/DL (1.5-2.4); SODIUM 137 MMOL/L (135-145); eCRCL 73 ML/MIN; eGFR 78 ML/MIN
[2024-11-11 08:00] VITALS: RESP 16; O2SAT 96
[2024-11-11 10:00] VITALS: BP 120/60; PULSE 72; RESP 16; TEMP 98.4; O2SAT 95
[2024-11-11 10:59] VITALS: RESP 16
--- NOTE | 2024-11-11 12:53 | DISCHARGE SUMMARY-Residence ---
Discharge Summary Providers to CC Resident Creating Document: ELLIEMAZIN, RES ~ Discharge Summary Admission Diagnosis: Left BKA celluilitis Hospital Course DATE OF ADMISSION: 11/07/2024 DATE OF DISCHARGE: 11/12/2023 Discharge Diagnosis\Comment: # Left BKA stump open wound from pressure # Cellulitis - improving # Paroxysmal AFib (Abel Vasc score 4) with CVR on no anticoagulation-controlled # history of methamphetamine induced cardiomyopathy # chronic HFpEF 50-55 % on 11/10/23, pulmonary hypertension # history of hypertension # T2DM # history of peripheral neuropathy Vs post BKA stump pain (Phantom pain) # Hx of meth and opiate abuse Operations\Procedures: None Consultants: Wound care Complications: None Condition on DC: Stable Discharge Summary: A 63-year-old male with a past medical history of bilateral BKA, T2 DM, AFib with CVR with no anticoagulation, HTN, HLD, chronic back pain and pain syndrome, depression presented with painful erythematous open wound over left BKA stump and he was admitted to hospital for further management including cellulitis management. Hospital course: Patient was admitted to the hospital floor for the further wound care and IV antibiotics for his cellulitis over the left BKA stump. He was given IV doxycycline for total three days during his stay along with the wound care. He was given one time dose of IV vancomycin and Zosyn in ER. His Lower extremity CT showed Extensive fat stranding and phlegmonous changes are seen throughout the left lower extremity, most prominent in the prepatellar region, suggestive of cellulitis. No discrete abscess identified. His pain well-controlled with the Lenox/morphine/pregabalin as needed. The wound care was given during his hospitalization. All the social services aide were provided when he was here for his substance abuse history and social background. His HR were controlled well with metoprolol 12.5 mg bid, BP was stabilized around 130/60 after we held diltiazem for his soft BP and controlled Afib . We started anticoagulation Eliquis 5 mg b.i.d. in addition of his home med Plavix daily after we discussed the risk and benefits of the Eliquis for his Abel Vasc score 4 for his Afib with CVR. His 2D echocardiogram showed mid anterior and inferoseptal segment and basal inferior segments are hypokinetic, mild concentric LV hypertrophy, LVEF 50-55%, RV moderately dilated with reduced function, RVSP 50 mm Hg, LA mildly dilated, mild MR and normal pericardium and no effusion. We added Jardiance 10 mg Daily for his preserved ejection fraction heart failure. His HGB A1c was 7.5, started the Lantus 20 units and medium dose sliding scale insulin regimen. All of his medications were reviewed and reconciled, continue appropriately and downgraded his pregabalin 75 mg b.i.d. only for his peripheral neuropathy and phantom pain. DVT prophylaxis was achieved with the sc heparin, pain was controlled with acetaminophen morphine and Lenox as needed. GI prophylaxis was done with the pantoprazole, he was provided with a carb controlled diet throughout his stay. All of his questions and concerns were addressed and answered with the best knowledge of our team before he was discharged to rehab today. Today, all of his labs were review WNL including WBC 4.5, hemoglobin 10.8, hematocrit 32.1, platelet count 278, serum sodium 137, potassium four, chloride 103, BUN 16 and creatinine 0.97, and RBS 131. All of his vitals were stable at the moment with temp 98.2 F, OK 59/minute, RR 16/minute, BP 122/55 mm Hg, pulse oximetry 96% on room air. On examination, General: Well alert, well oriented, not confused, not agitated, not in acute distress, well cooperated during the physical. HEENT: Conjunctive are pink, sclerae clear, no icterus, pupil is equal in both sides, reactive to light, no ear discharge, no pharyngeal erythema or an edema, mouth and lips are moist. Neck: Supple, no JVD, no lymphadenopathy and thyromegaly. Lungs:Equal air entry on both lungs, no additional sounds Heart: S1-S2 regular sinus rhythm and, regular rate, no gallops, no rubs, no murmurs Abdomen: No visible peristalsis, Bowel sounds present on auscultation, soft, nontender, no guarding, no rigidity Extremities: BIlateral BKA stumps with posterior flapping. Over the left stump, 4 x 5 cm rounded pressure like opend wound with the some healthy granulation tissue at the rim and some pus like matters inside, which was secured with the foam dressing. 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 The patient subjectively saying that he has been refilling Percocet 10 every monthly after the but it was not mentioned in the [facility]xES report.* Discharge instructions: -return to ER for any emergent conditions -continue follow up with PCP, wound care for further management -strictly controlled diabetes -social services aide were recommended -medication compliance Resident MD attestation: Patient was seen, examined and discussed with attending MD, Dr. Samy ARGUETA MD Internal Medicine Resident, PGY2 [facility] *Problems/Diagnosis: (1) Wound cellulitis Status: Chronic (2) S/P BKA (below knee amputation) Status: Chronic Total Time Spent on D/C: > 30 Minutes Counseling Services Smoking & Tobacco Cessation: 3-10 Minutes Date of Service: November 11, 2024 Billing Provider: JB KONG MD Common Visit Codes: 24044-NEY/OBS DISCH DAY >30min MAZIN ARGUETA RES November 11, 2024 10:46 JB KONG MD November 11, 2024 19:05
[2024-11-11] MEDS ORDERED: JUVEN Smoothie Arginine/Glut./Ca2+Bmb (Juven 19.3pkt) 240ml cup PO SCH (17:30)
== END 2024-11-11 15:12 | DRG 564 ==
LOC: ER 16:28 → ED HOLD 20:03 → ORTHO 4S 11-08 08:00
PROVIDERS: ADMIT Internal Medicine; ATTEND Internal Medicine
DX: T87.44 Infection of amputation stump, left lower extremity (principal); N17.0 Acute kidney failure with tubular necrosis; L03.116 Cellulitis of left lower limb; I50.32 Chronic diastolic (congestive) heart failure; I13.0 Hypertensive heart and chronic kidney disease with heart failure and stage 1 through stage 4 chronic kidney disease, or unspecified chronic kidney disease; Z66 Do not resuscitate; E11.42 Type 2 diabetes mellitus with diabetic polyneuropathy; E11.22 Type 2 diabetes mellitus with diabetic chronic kidney disease; N18.30 Chronic kidney disease, stage 3 unspecified; E78.00 Pure hypercholesterolemia, unspecified; I48.0 Paroxysmal atrial fibrillation; Y83.8 Other surgical procedures as the cause of abnormal reaction of the patient, or of later complication, without mention of misadventure at the time of the procedure; I27.20 Pulmonary hypertension, unspecified; F15.90 Other stimulant use, unspecified, uncomplicated; J44.9 Chronic obstructive pulmonary disease, unspecified; F10.90 Alcohol use, unspecified, uncomplicated; Z88.2 Allergy status to sulfonamides; Y92.89 Other specified places as the place of occurrence of the external cause; Z79.01 Long term (current) use of anticoagulants; Z89.512 Acquired absence of left leg below knee; Z79.4 Long term (current) use of insulin; Z79.84 Long term (current) use of oral hypoglycemic drugs; Z79.899 Other long term (current) drug therapy; Z87.891 Personal history of nicotine dependence
CPT/HCPCS: 36415; 71045; 73700; 80048; 80061; 80076; 80202; 80305; 81001; 82948; 83036; 83605; 83735; 83880; 84145; 85025; 87040; 87081; 93306; 96365; 96366; 96375; 97161; 97530; 97542; 99285; A6212; A6213; A6222; A6223; A6258; A6260; A6449; G0378; J1644; J1815; J2270; J2405; J2543; J3370; J3490; J7030

== ENCOUNTER 2024-11-19 21:54 | Emergency (ER) | payer MEDICARE, MEDICAID ==
[~2024-11-19] VITALS: Ht 157.5 cm; Wt 90.9 kg
[~2024-11-19 21:54] MED LIST changes: +LANTUS SQ; +PREG100C56 PO
[2024-11-19 21:57] VITALS: TEMP 98; O2SAT 97
--- NOTE | 2024-11-19 22:03 | Physician Documentation ---
History of Present Illness ~ Chief Complaint: Ankle pain Stated Complaint: PAIN Time Seen by MD: 22:03 Primary Medical Doctor: Dr. KAL MANRIQUEZ This is a 63-year-old male with a history of bilateral [id number] amputations who presents today from [facility] due to worsening of his chronic phantom limb pain bilaterally. He reports that he was given a Percocet prior to being sent here but that that did not even touch his pain, which he is currently rating 10/10. He also takes ropinirole 0.5 mg t.i.d. for restless legs. Lyrica 100 mg b.i.d.. He denies chills or fever, but does report that he has had some nausea. Tetanus witin 5 years: No Medication Reconciliation Allergies: Coded Allergies: Sulfa (Sulfonamide Antibiotics) (Verified Allergy, Unknown, 12/07/23) Scheduled Buprenorphine Hcl (Buprenorphine Hcl), 2 TAB SL TID, (Reported) Bupropion HCl (Bupropion Xl), 1 TAB PO DAILY, (Reported) Clopidogrel Bisulfate (Clopidogrel), 1 TAB PO DAILY, (Reported) Diltiazem HCl (Cartia Xt), 180 MG PO DAILY, (Reported) Duloxetine HCl (Duloxetine HCl), 1 CAP PO DAILY, (Reported) Furosemide (Furosemide), 40 MG PO QAM Insulin Glargine,Hum.rec.anlog (Lantus), 40 UNITS SQ HS, (Reported) Insulin Lispro (Insulin Lispro), 4-12 UNITS SQ TID, (Reported) Lisinopril (Lisinopril), 5 MG PO DAILY, (Reported) Metformin HCl (Metformin HCl), 500 MG PO TID, (Reported) Metoprolol Tartrate (Metoprolol Tartrate), 0.5 TAB PO BID, (Reported) Pregabalin (Pregabalin), 1 CAP PO BID, (Reported) Ropinirole Hcl (Ropinirole Hcl), 1 TAB PO TID, (Reported) Saxagliptin Hydrochloride (Onglyza), 1 TABLET PO DAILY, (Reported) Simvastatin* (Zocor*), 1 TAB PO HS, (Reported) Spironolactone (Spironolactone), 50 MG PO QAM, (Reported) [tamsulosin capsule], 0.4 MG PO HS Scheduled PRN Oxycodone Hcl/Acetaminophen (Oxycodone-Acetaminophen 10-325), 1 TAB PO TID PRN for pain, (Reported) Pregabalin (LYRICA capsule), 1 CAP PO BID PRN for pain, (Reported) Tizanidine Hcl (Zanaflex), 1 TAB PO BID PRN for muscle spasms, (Reported) Miscellaneous Medications Insulin Glargine,Hum.rec.anlog* (Lantus*), SQ, (Reported) Past Medical History Past Medical History: Atrial Fibrillation, High Cholesterol, Hypertension, COPD, Kidney Stones, Diabetes, Thyroid (unspecified), Chronic Back Pain Past Surgical History: other Other Past Surgical History: Left below the knee amputation Alcohol Use: Occasionally Drug Use: methamphetamine Lives In: Home Past Social History: Quit smoking 2015 Review of Systems ROS As stated above in the HPI, otherwise all systems are reviewed and negative. Physical Exam Vital Signs: Temperature: 98.0, Source: Oral, Heart Rate: 72, Respiratory Rate: 14, BP: 154/75, Pulse Oximetry: 97, Weight: 90.910 Oxygen Flow Rate: 0 Physical Exam General: Alert, no apparent distress. Chronically ill appearing. HEENT: PERRL, EOMI, no injection, moist mucous membranes. Neck: Full range of motion. Respiratory: Lungs clear, no respiratory distress. Chest: No accessory muscle use. Cardiovascular: Regular rate and rhythm, no murmurs. Gastrointestinal: Soft, nontender, nondistended. Bowels sounds present. Extremities: BLE amputations [id number]. Neurologic: Oriented x4. Psychiatric: Normal mood and affect. Skin: Normal color, warm and dry. No edema, no ecchymosis. Progress Results/Orders Results/Orders Orders - BUSHRA SMITH NP Ondansetron Disint. Tablet (Zofran Odt T (11/19/24 22:15) Oxycodone Immed Release Tablet (Oxy Ir T (11/19/24 22:15) Pregabalin Capsule (Lyrica Capsule) (11/19/24 22:15) Vital Signs 11/19/24 11/19/24 21:57 22:07 Temp 98.0 Pulse 72 72 Resp 14 13 B/P (MAP) 154/75 137/67 (90) Pulse Ox 97 O2 Flow Rate 0 Medical Decision Making Additional Comment This is a chronically ill-appearing 63-year-old male who presents today reporting that he has had worsening of his phantom limb pain bilaterally, rating it 10/10. He reports that he received a pain pill at his facility, [facility]. Review of the paperwork from [facility] shows that he has Percocet 10/17/2024 available and that he receives Lyrica 100 mg twice daily. He also takes duloxetine 60 mg daily, and is found to have a lidocaine patch to his stump. The patient was medicated in the emergency department with morphine 4 mg IM, an additional dose of Lyrica 75 mg, and an additional oxycodone 10 mg without acetaminophen p.o. x1. He was then appropriate for return to his facility. Departure Time of Disposition: 22:15 Disposition: [facility] Impression: Primary Impression: S/P BKA (below knee amputation) Qualified Codes: Z89.512 - Acquired absence of left leg below knee; Z89.511 - Acquired absence of right leg below knee Additional Impression: Phantom limb pain Discharge Instructions: Phantom Limb Pain Additional Instructions: You may benefit from dosage increases of your duloxetine and lyrica if the doctor at [facility] feels that this is appropriate. Mirror therapy and TENS may also be helpful. You were given intra-muscular morphine along with an additional 75 mg of lyrica and a 10 mg oxycodone without acetaminophen in the ER. You were given ondansetron 4 mg for nausea. Referrals: NO PRIMARY CARE PROVIDER (PCP) Education Educated: Patient Educated regarding: diagnosis, treatment, prognosis, need for follow up Signature Scribe Signature: no scribe Attestation: The note accurately reflects work and decisions made by me.Bushra Bowling NP 11/19/24 22:13 BUSHRA SMITH NP Nov 19, 2024 22:03
[2024-11-19 22:07] VITALS: BP 137/67; PULSE 72
[2024-11-19] MEDS: oxyCODONE IR 5mg (immed. release) tablet PO ONE (22:28)
[2024-11-19] MEDS: pregabalin 75mg capsule PO ONE (22:28)
[2024-11-19] MEDS: ondansetron 4mg rapidly disintigrating tab PO ONE (22:28)
[2024-11-19 22:29] VITALS: RESP 12
[2024-11-19] MEDS: morphine 4 MG/ML inj SYRINge IM ONE (22:29)
== END 2024-11-19 23:11 ==
LOC: ER 21:54
DX: G54.6 Phantom limb syndrome with pain (principal); Z89.512 Acquired absence of left leg below knee; Z89.511 Acquired absence of right leg below knee; E11.9 Type 2 diabetes mellitus without complications; E78.00 Pure hypercholesterolemia, unspecified; I10 Essential (primary) hypertension; I48.91 Unspecified atrial fibrillation; J44.9 Chronic obstructive pulmonary disease, unspecified; Z87.442 Personal history of urinary calculi; Z87.891 Personal history of nicotine dependence; Z88.2 Allergy status to sulfonamides; Z88.8 Allergy status to other drugs, medicaments and biological substances
CPT/HCPCS: 96372; 99284; J2270

== ENCOUNTER 2024-11-26 19:10 | Emergency (ER) | payer MEDICARE, MEDICAID ==
[~2024-11-26] VITALS: Ht 152.4 cm; Wt 95.0 kg
[2024-11-26 19:22] VITALS: BP 161/78; PULSE 70; RESP 15; O2SAT 99
--- NOTE | 2024-11-26 20:57 | Physician Documentation ---
History of Present Illness ~ Chief Complaint: Cold, cough & congestion Stated Complaint: COUGH Time Seen by MD: 19:28 Primary Medical Doctor: Dr. BOWDEN HPI Patient is seen today with complaints of cough cold and congestion for the last 10 days. Patient denies any significant change in shortness of breath. He states he does use oxygen at home. He admits to COPD. Patient denies any current chest pain or abdominal pain or nausea, vomiting, diarrhea or fevers or chills. He has no other concern or complaint at this time. Medication Reconciliation Allergies: Coded Allergies: Sulfa (Sulfonamide Antibiotics) (Verified Allergy, Unknown, 11/26/24) Scheduled Buprenorphine Hcl (Buprenorphine Hcl), 2 TAB SL TID, (Reported) Bupropion HCl (Bupropion Xl), 1 TAB PO DAILY, (Reported) Clopidogrel Bisulfate (Clopidogrel), 1 TAB PO DAILY, (Reported) Diltiazem HCl (Cartia Xt), 180 MG PO DAILY, (Reported) Duloxetine HCl (Duloxetine HCl), 1 CAP PO DAILY, (Reported) Furosemide (Furosemide), 40 MG PO QAM Insulin Glargine,Hum.rec.anlog (Lantus), 40 UNITS SQ HS, (Reported) Insulin Lispro (Insulin Lispro), 4-12 UNITS SQ TID, (Reported) Lisinopril (Lisinopril), 5 MG PO DAILY, (Reported) Metformin HCl (Metformin HCl), 500 MG PO TID, (Reported) Metoprolol Tartrate (Metoprolol Tartrate), 0.5 TAB PO BID, (Reported) Pregabalin (Pregabalin), 1 CAP PO BID, (Reported) Ropinirole Hcl (Ropinirole Hcl), 1 TAB PO TID, (Reported) Saxagliptin Hydrochloride (Onglyza), 1 TABLET PO DAILY, (Reported) Simvastatin* (Zocor*), 1 TAB PO HS, (Reported) Spironolactone (Spironolactone), 50 MG PO QAM, (Reported) [tamsulosin capsule], 0.4 MG PO HS Scheduled PRN Oxycodone Hcl/Acetaminophen (Oxycodone-Acetaminophen 10-325), 1 TAB PO TID PRN for pain, (Reported) Pregabalin (LYRICA capsule), 1 CAP PO BID PRN for pain, (Reported) Tizanidine Hcl (Zanaflex), 1 TAB PO BID PRN for muscle spasms, (Reported) Miscellaneous Medications Insulin Glargine,Hum.rec.anlog* (Lantus*), SQ, (Reported) Past Medical History Past Medical History: Atrial Fibrillation, High Cholesterol, Hypertension, COPD, Kidney Stones, Diabetes, Thyroid (unspecified), Chronic Back Pain Past Surgical History: other Other Past Surgical History: Left below the knee amputation Alcohol Use: Occasionally Drug Use: methamphetamine Lives In: Home Past Social History: Quit smoking 2016 Review of Systems Constitutional: Denies: chills, fever, weakness Eyes: Denies: pain, blurred vision ENT: Denies: ear pain, nose pain, throat pain, mouth pain Respiratory: Denies: cough, shortness of breath Cardiovascular: Denies: chest pain, palpitations Gastrointestinal: Denies: abdominal pain, nausea, vomiting Genitourinary: Denies: burning, dysuria Male Genitalia: Denies: penile discharge, testicular pain Neurological: Denies: headache, dizziness Musculoskeletal: Denies: pain, swelling Integumentary: Denies: rash, lesions Allergic/Immunologic: Denies: hives, itching Hematologic/Lymphatic: Denies: no symptoms reported Psychiatric: Denies: depression, anxiety Physical Exam Vital Signs: Heart Rate: 70, Respiratory Rate: 15, BP: 161/78, Pulse Oximetry: 99, Weight: 95.000 Oxygen Flow Rate: 3.0 Physical Exam General: Awake and Alert, no acute distress. HEENT: Conjunctiva pink, Sclera clear, Mucus Membranes moist. Neck: Supple without masses and tenderness. Resp: Unlabored. Lungs on auscultation due shows some coarse breath sounds with expiratory wheezes but patient is moving air well and I do not appreciate any rales or rhonchi or consolidation. Heart: Regular Rate and rhythm, normal S1 and S2 without murmur, rub or gallop. Abdomen: Soft and non tender no organomegaly Extremities: No cyanosis,clubbing or edema. Skin: Warm and Dry. Progress Results/Orders Results/Orders Orders - SALONI HAWLEY PAC Chest,Single View (11/26/24 20:53) Urinalysis, Cult If Indicated (11/26/24 20:55) Drug Screen, Urine (11/26/24 20:55) Hs Troponin I W Calculations (11/26/24 22:55) Hs Troponin I W Calculations (11/26/24 23:55) Straight Cath For Urine Sample (11/26/24 20:55) Completed Orders - SALONI HAWLEY PAC Chest,Single View (11/26/24 20:53) Cbc/Diff (11/26/24 20:55) Ethanol (11/26/24 20:55) MG (11/26/24 20:55) Electrocardiogram (11/26/24 20:55) BMP (11/26/24 20:55) Hs Troponin I W Calculations (11/26/24 20:55) Vital Signs 11/26/24 19:22 Pulse 70 Resp 15 B/P (MAP) 161/78 Pulse Ox 99 O2 Flow Rate 3.0 Laboratory Tests Test 11/26/24 21:13 White Blood Count 4.9 Red Blood Count 4.71 Hemoglobin 12.5 L Hematocrit 37.5 L Mean Corpuscular Volume 79.7 Mean Corpuscular Hemoglobin 26.6 L Mean Corpuscular Hemoglobin Concent 33.4 Red Cell Distribution Width 15.1 H Platelet Count 211 Mean Platelet Volume 7.8 Neutrophils (%) (Auto) 52.2 Lymphocytes (%) (Auto) 34.3 Monocytes (%) (Auto) 9.8 Eosinophils (%) (Auto) 3.2 Basophils (%) (Auto) 0.5 Neutrophils # (Auto) 2.6 Lymphocytes # (Auto) 1.7 Monocytes # (Auto) 0.5 Eosinophils # (Auto) 0.2 Basophils # (Auto) 0.0 CBC Comment Sodium Level 140 Potassium Level 4.5 Chloride Level 105 Carbon Dioxide Level 26.4 Anion Gap 9 Blood Urea Nitrogen 12 Creatinine 1.06 Estimated GFR/1.73 m2 70 BUN/Creatinine Ratio 11.3 Glucose Level 214 H Calcium Level 8.7 Magnesium Level 1.8 Troponin I High Sensitivity 10 Albumin 3.1 L Chemistry Comments Ethyl Alcohol Level < 10 EKG/XRAY/CT/US/VASC/MRI Chest X-Ray : Additional Comments Chest x-ray interpreted by myself today shows no sign of large pleural effusion, no large infiltrate, normal mediastinum. DIAGNOSTIC RADIOLOGY Patient: AVTAR JONES Medical Record: [id number] [facility] : 1960, Age: 64 Sex: Male Location: ER Patient Status: [facility] ER Service Date/Time: 11/26/242052 Ordering Physician: SALONI HAWLEY PAC Exam: CHEST,SINGLE VIEW EXAM: DI CHEST,SINGLE VIEW TECHNIQUE: Single frontal chest radiograph CLINICAL HISTORY: cough COMPARISON: DI CHEST,SINGLE VIEW on DOS: 11/07/24, DI CHEST,SINGLE VIEW on DOS: 12/27/23, DI CHEST,SINGLE VIEW on DOS: 12/07/23 Findings/Impression: Frontal chest radiograph demonstrates no acute osseous or superficial soft tissue abnormalities. The trachea is midline. Mild cardiomegaly with pulmonary vascular congestion. No pneumothorax, pleural effusions, or consolidations. Electronically Signed by:MARELY GALAN DO Date & Time: 11/26/242139 Dictated by: MARELY GALAN DO Dictation date and time: 11/26/242139 Primary Care Provider: NO PRIMARY CARE PROVIDER cc: SALONI HAWLEY PAC ~ Medical Decision Making Findings Patient is seen today with complaints of cough cold and congestion for the last 10 days. Patient denies any significant change in shortness of breath. He states he does use oxygen at home. He admits to COPD. Patient denies any current chest pain or abdominal pain or nausea, vomiting, diarrhea or fevers or chills. He has no other concern or complaint at this time. Patient's labs and chest x-ray are largely unremarkable. Given patient's hist ory and physical exam findings of COPD and exacerbation, the patient will be given prescription for cough medicine and prescribed azithromycin sent to patient's pharmacy. With 1st dose given in the hospital tonight. Patient will follow up with primary care in 2-5 days if no better as needed sooner. Return to ED with any worsening, concerning or changing symptoms. Departure Disposition: HOME / SELF CARE / HOMELESS Impression: Primary Impression: Cough Qualified Codes: R05.1 - Acute cough Additional Impression: COPD exacerbation Condition: Improved Discharge Instructions: Form - COPD Action Plan Additional Instructions: Patient's labs and chest x-ray are largely unremarkable. Given patient's history and physical exam findings of COPD and exacerbation, the patient will be given prescription for cough medicine and prescribed azithromycin sent to patient's pharmacy. With 1st dose given in the hospital tonight. Patient will follow up with primary care in 2-5 days if no better as needed sooner. Return to ED with any worsening, concerning or changing symptoms. Referrals: NO PRIMARY CARE PROVIDER (PCP) Prescriptions Azithromycin (Azithromycin) 250 Mg Tablet 2 TAB PO UD for 4 Days, #8 TAB 2 the first day followed by 1 for days 2-5 Prov: SALONI HAWLEY 11/26/24 Signature Scribe Signature: No scribe Attestation: No scribe SALONI HAWLEY Nov 26, 2024 20:57
--- NOTE | 2024-11-26 21:05 | ELECTROCARDIOGRAPH REPORT ---
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
[2024-11-26 21:23] LABS: BASOPHILS % (AUTO) 0.5 % (0-1); EOSINOPHILS # (AUTO) 0.2 X10'3 (0-0.9); EOSINOPHILS % (AUTO) 3.2 % (0-6); HEMATOCRIT 37.5 % (42.0-52.0); HEMOGLOBIN 12.5 g/dl (14.0-17.9); LYMPHOCYTES # (AUTO) 1.7 X10'3 (1.1-4.8); LYMPHOCYTES % (AUTO) 34.3 % (21-51); MEAN CORPUSCULAR HEMOGLOBIN 26.6 PG (27.0-31.0); MEAN CORPUSCULAR HGB CONC 33.4 g/dL (33.0-36.5); MEAN CORPUSCULAR VOLUME 79.7 FL (78-98); MEAN PLATELET VOLUME 7.8 FL (7.4-10.4); MONOCYTES # (AUTO) 0.5 X10'3 (0-0.9); MONOCYTES % (AUTO) 9.8 % (2-12); NEUTROPHILS # (AUTO) 2.6 X10'3 (1.8-7.7); NEUTROPHILS % (AUTO) 52.2 % (42-75); PLATELET COUNT 211 X10'3 (140-440); RED BLOOD COUNT 4.71 X10'6 (4.70-6.10); RED CELL DISTRIBUTION WIDTH 15.1 % (11.5-14.5); WHITE BLOOD COUNT 4.9 X10'3 (4.5-11.0)
[2024-11-26 21:42] LABS: ALBUMIN 3.1 G/DL (3.4-5.0); ANION GAP 9 (8-16); BLOOD UREA NITROGEN 12 MG/DL (7-18); BUN/CREATININE RATIO 11.3 (10.0-20.0); CALCIUM 8.7 MG/DL (8.5-10.1); CHLORIDE 105 MMOL/L (99-107); CREATININE 1.06 MG/DL (0.60-1.10); GLUCOSE 214 MG/DL (70-104); MAGNESIUM 1.8 MG/DL (1.5-2.4); POTASSIUM 4.5 MMOL/L (3.5-5.1); SODIUM 140 MMOL/L (135-145); TOTAL CARBON DIOXIDE 26.4 MMOL/L (24-32); eCRCL 48 ML/MIN; eGFR 70 ML/MIN
--- NOTE | 2024-11-26 21:43 | RADIOLOGY REPORT ---
EXAM: DI CHEST,SINGLE VIEW TECHNIQUE: Single frontal chest radiograph CLINICAL HISTORY: cough COMPARISON: DI CHEST,SINGLE VIEW on DOS: 11/07/24, DI CHEST,SINGLE VIEW on DOS: 12/27/23, DI CHEST,SING LE VIEW on DOS: 12/07/23 Findings/Impression: Frontal chest radiograph demonstrates no acute osseous or superficial soft tissue abnormalities. The trachea is midline. Mild cardiomegaly with pulmonary vascular congestion. No pneumothorax, pleural effusions, or consolidations.
[2024-11-26 21:44] LABS: ETHANOL < 10 MG/DL (<10)
[2024-11-26] MEDS ORDERED: AZIT-103 PO (22:18)
[2024-11-26] MEDS: azithromycin 250mg tablet PO STA (22:42)
[2024-11-26] MEDS: benzonatate 100mg capsule PO STA (22:43)
== END 2024-11-26 22:57 | disposition home or self-care (01) ==
LOC: ER 19:11
DX: J44.1 Chronic obstructive pulmonary disease with (acute) exacerbation (principal); E11.9 Type 2 diabetes mellitus without complications; E78.00 Pure hypercholesterolemia, unspecified; I10 Essential (primary) hypertension; I48.91 Unspecified atrial fibrillation; F15.90 Other stimulant use, unspecified, uncomplicated; Z87.891 Personal history of nicotine dependence; Z88.2 Allergy status to sulfonamides; Z88.8 Allergy status to other drugs, medicaments and biological substances; Z79.899 Other long term (current) drug therapy
CPT/HCPCS: 36415; 71045; 80048; 83735; 84484; 85025; 93005; 99285; G0480; 80320

== ENCOUNTER 2025-02-07 16:48 | Emergency (ER) | payer MEDICARE, MEDICAID ==
[~2025-02-07] VITALS: Ht 177.8 cm; Wt 102.3 kg
[~2025-02-07 16:48] MED LIST changes: +APIX5TAB3 PO; +EMPA10TA PO
[2025-02-07 16:59] VITALS: TEMP 98.1
--- NOTE | 2025-02-07 17:08 | Physician Documentation ---
History of Present Illness Chief Complaint: Abdominal Pain Stated Complaint: ABD PAIN Primary Medical Doctor: Dr. BOWDEN [facility] Patient is a 64-year-old male that presents to the emergency department for evaluation of abdominal pain with nausea. Patient denies any vomiting at this time just nausea times 2-3 days. Reports that he was seen at [facility] yesterday underwent laboratory and imaging diagnostics that did not show anything according to patient. Patient reports that he has taken oxycodone for the last 30 years feels like that he might be withdrawing because the oxycodone does not seem to be helping anymore. Patient reports that he is still taking his oxycodone 10 3 times a day. Patient reports that he normally has bowel movements daily but has not had a bowel movement x4 days. Patient is passing gas. Patient denies any blood in his urine or stool patient denies fevers patient denies any other symptoms at this time. Patient reports a history of AFib. Medication Reconciliation Allergies: Coded Allergies: Sulfa (Sulfonamide Antibiotics) (Verified Allergy, Unknown, 02/07/25) Scheduled Apixaban (Eliquis), 5 MG PO BID Buprenorphine Hcl (Buprenorphine Hcl), 2 TAB SL TID, (Reported) Buprenorphine Hcl/Naloxone Hcl (Suboxone 8 Mg-2 Mg Sl Film), 1 STRIP SL DAILY Bupropion HCl (Bupropion Xl), 1 TAB PO DAILY, (Reported) Clopidogrel Bisulfate (Clopidogrel), 1 TAB PO DAILY, (Reported) Diltiazem HCl (Cartia Xt), 180 MG PO DAILY, (Reported) Duloxetine HCl (Duloxetine HCl), 1 CAP PO DAILY, (Reported) Empagliflozin (Jardiance), 1 TAB PO DAILY Furosemide (Furosemide), 40 MG PO QAM Insulin Glargine,Hum.rec.anlog (Lantus), 40 UNITS SQ HS, (Reported) Insulin Lispro (Insulin Lispro), 4-12 UNITS SQ TID, (Reported) Lisinopril (Lisinopril), 5 MG PO DAILY, (Reported) Metformin HCl (Metformin HCl), 500 MG PO TID, (Reported) Metoprolol Tartrate (Metoprolol Tartrate), 0.5 TAB PO BID, (Reported) Pregabalin (Pregabalin), 1 CAP PO BID, (Reported) Ropinirole Hcl (Ropinirole Hcl), 1 TAB PO TID, (Reported) Saxagliptin Hydrochloride (Onglyza), 1 TABLET PO DAILY, (Reported) Simvastatin* (Zocor*), 1 TAB PO HS, (Reported) Spironolactone (Spironolactone), 50 MG PO QAM, (Reported) [tamsulosin capsule], 0.4 MG PO HS Scheduled PRN Oxycodone Hcl/Acetaminophen (Oxycodone-Acetaminophen 10-325), 1 TAB PO TID PRN for pain, (Reported) Pregabalin (LYRICA capsule), 1 CAP PO BID PRN for pain, (Reported) Tizanidine Hcl (Zanaflex), 1 TAB PO BID PRN for muscle spasms, (Reported) Miscellaneous Medications Insulin Glargine,Hum.rec.anlog* (Lantus*), SQ, (Reported) Past Medical History Past Medical History: Atrial Fibrillation, High Cholesterol, Hypertension, COPD, Kidney Stones, Diabetes, Thyroid (unspecified), Chronic Back Pain Past Surgical History: other Other Past Surgical History: Left below the knee amputation Alcohol Use: Occasionally Drug Use: methamphetamine Lives In: Home Past Social History: Quit smoking 2015 Review of Systems ROS As stated above in the HPI, otherwise all systems are reviewed and negative. Medical Decision Making Findings The patient a 64-year-old male with a history of chronic pain, the patient has been seen at [facility] over the last two days in our institution today. The pain patient's pain appears to be related to him running out of his narcotics. The patient has a benign exam his labs are unremarkable his recent CT scan at [facility] as well as labs were [facility] been reviewed. The patient will be given a dose of Suboxone. And he will be discharged with seven days as Suboxone. Patient has a benign abdomen etiologies considered but not supported by the clinical evidence include biliary disease appendicitis ischemic bowel and colitis. The patient's pulse oximetry was interpreted as normal and adequate. 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 Departure Disposition: HOME / SELF CARE / HOMELESS Impression: Primary Impression: Abdominal pain Qualified Codes: R10.84 - Generalized abdominal pain Referrals: NO PRIMARY CARE PROVIDER (PCP) Prescriptions Buprenorphine Hcl/Naloxone Hcl (Suboxone 8 Mg-2 Mg Sl Film) 8 Mg-2 Mg Film 1 STRIP SL DAILY for 7 Days, #7 STRIP Prov: RHETT EUBANKS MD 02/07/25 Signature Scribe Signature: No scribe Attestation: The note accurately reflects work and decisions made by me.Rhett Eubanks MD 02/09/25 14:44 CECE [facility]OOK [facility] Feb 07, 2025 17:08 RHETT EUBANKS MD Feb 07, 2025 18:24
[2025-02-07] MEDS ORDERED: BUPR1FIL3 SL (18:12)
[2025-02-07] MEDS: buprenorphine/naloxone 8MG-2MG SUBlingual film SL SCH (18:42)
[2025-02-07 18:59] LABS: MEAN PLATELET VOLUME 8.1 FL (7.4-10.4); RED CELL DISTRIBUTION WIDTH 15.2 % (11.5-14.5)
[2025-02-07 19:12] VITALS: BP 141/86; PULSE 72; RESP 16; O2SAT 99
[2025-02-07 19:12] LABS: CREATININE 1.42 MG/DL (0.60-1.10); TOTAL CARBON DIOXIDE 26.0 MMOL/L (24-32); eCRCL 53 ML/MIN; eGFR 50 ML/MIN
== END 2025-02-07 19:41 | disposition home or self-care (01) ==
LOC: ER 16:49
DX: R10.9 Unspecified abdominal pain (principal); R11.0 Nausea; E11.9 Type 2 diabetes mellitus without complications; I10 Essential (primary) hypertension; E78.00 Pure hypercholesterolemia, unspecified; J44.9 Chronic obstructive pulmonary disease, unspecified; I48.91 Unspecified atrial fibrillation; F15.90 Other stimulant use, unspecified, uncomplicated; Z87.891 Personal history of nicotine dependence; Z88.2 Allergy status to sulfonamides; Z88.8 Allergy status to other drugs, medicaments and biological substances
CPT/HCPCS: 36415; 80053; 82948; 83690; 85025; 99284

== ENCOUNTER 2025-02-08 23:06 | Emergency (ER) | payer MEDICARE, MEDICAID ==
[~2025-02-08] VITALS: Ht 147.3 cm; Wt 99.0 kg
[~2025-02-08 23:06] MED LIST changes: +BUPR1FIL3 SL
--- NOTE | 2025-02-08 23:27 | ELECTROCARDIOGRAPH REPORT ---
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
[2025-02-08 23:41] LABS: MEAN PLATELET VOLUME 8.4 FL (7.4-10.4); RED CELL DISTRIBUTION WIDTH 15.7 % (11.5-14.5)
[2025-02-09] LABS: CREATININE 1.42 MG/DL (0.60-1.10); TOTAL CARBON DIOXIDE 23.2 MMOL/L (24-32); eCRCL 33 ML/MIN; eGFR 50 ML/MIN
[2025-02-09 00:08] LABS: PRO BRAIN NATRIURETIC PEPTIDE 119 PG/ML (0-125)
--- NOTE | 2025-02-09 00:14 | RADIOLOGY REPORT ---
CHEST RADIOGRAPH Indication: CP Technique: 1 view Comparison: DI CHEST,SINGLE VIEW on DOS: 12/16/24, DI CHEST,SINGLE VIEW on DOS: 11/26/24, DI CHEST,SINGL E VIEW on DOS: 11/07/24, DI CHEST,SINGLE VIEW on DOS: 12/27/23, DI CHEST,SINGLE VIEW on DOS: 12/07/23 FINDINGS: Lines and Tubes: None Lungs/Pleura: No focal consolidation, pleural effusion or pneumothorax. Similar interstitial prominen ce. Cardiomediastinum: Unremarkable. Other: No acute osseous abnormality. IMPRESSION: 1. No significant change from prior exam. Interstitial prominence suggesting edema.
--- NOTE | 2025-02-09 01:02 | Physician Documentation ---
History of Present Illness ~ General Chief Complaint: Multiple Medical Complaints Stated Complaint: SOB A ALS Time Seen by MD: 00:53 Primary Medical Doctor: Dr. BOWDEN Mode of Arrival: EMS History of Present Illness Initial Comments Patient presents to the emergency room with some nausea abdominal pain and generally not feeling well. Although this was reported in his triage note he states the reason why he is here as for mental health evaluation. Denies SI/HI. Medication Reconciliation Allergies: Coded Allergies: Sulfa (Sulfonamide Antibiotics) (Verified Allergy, Unknown, 02/07/25) Scheduled Apixaban (Eliquis), 5 MG PO BID Buprenorphine Hcl (Buprenorphine Hcl), 2 TAB SL TID, (Reported) Buprenorphine Hcl/Naloxone Hcl (Suboxone 8 Mg-2 Mg Sl Film), 1 STRIP SL DAILY Bupropion HCl (Bupropion Xl), 1 TAB PO DAILY, (Reported) Clopidogrel Bisulfate (Clopidogrel), 1 TAB PO DAILY, (Reported) Diltiazem HCl (Cartia Xt), 180 MG PO DAILY, (Reported) Duloxetine HCl (Duloxetine HCl), 1 CAP PO DAILY, (Reported) Empagliflozin (Jardiance), 1 TAB PO DAILY Furosemide (Furosemide), 40 MG PO QAM Insulin Glargine,Hum.rec.anlog (Lantus), 40 UNITS SQ HS, (Reported) Insulin Lispro (Insulin Lispro), 4-12 UNITS SQ TID, (Reported) Lisinopril (Lisinopril), 5 MG PO DAILY, (Reported) Metformin HCl (Metformin HCl), 500 MG PO TID, (Reported) Metoprolol Tartrate (Metoprolol Tartrate), 0.5 TAB PO BID, (Reported) Pregabalin (Pregabalin), 1 CAP PO BID, (Reported) Ropinirole Hcl (Ropinirole Hcl), 1 TAB PO TID, (Reported) Saxagliptin Hydrochloride (Onglyza), 1 TABLET PO DAILY, (Reported) Simvastatin* (Zocor*), 1 TAB PO HS, (Reported) Spironolactone (Spironolactone), 50 MG PO QAM, (Reported) [tamsulosin capsule], 0.4 MG PO HS Scheduled PRN Oxycodone Hcl/Acetaminophen (Oxycodone-Acetaminophen 10-325), 1 TAB PO TID PRN for pain, (Reported) Pregabalin (LYRICA capsule), 1 CAP PO BID PRN for pain, (Reported) Tizanidine Hcl (Zanaflex), 1 TAB PO BID PRN for muscle spasms, (Reported) Miscellaneous Medications Insulin Glargine,Hum.rec.anlog* (Lantus*), SQ, (Reported) Past Medical History Past Medical History: Atrial Fibrillation, High Cholesterol, Hypertension, COPD, Kidney Stones, Diabetes, Thyroid (unspecified), Chronic Back Pain Past Surgical History: other Other Past Surgical History: Left below the knee amputation Alcohol Use: Occasionally Drug Use: methamphetamine Lives In: Home Past Social History: Quit smoking 2015 Review of Systems ROS All review of systems negative except as per HPI Physical Exam Physical Exam Vital Signs: Temperature: 97.7, Source: Oral, Heart Rate: 63, Respiratory Rate: 10, BP: 142/83, Pulse Oximetry: 96, Weight: 99.000 Oxygen Flow Rate: 0 Physical Exam General: Patient is awake, alert, oriented x4 in no acute distress Head: Normocephalic and atraumatic. Eyes: Conjunctival normal. EOMI. PERRL. ENT: Mucous membranes moist. Neck: Supple, trachea is midline. Chest: Clear to auscultation bilaterally without rales, rhonchi, or wheezes. There is no accessory muscle use or retractions. Cardiac: RRR without murmurs, gallops, or rubs. Extremities: Bilateral or BKA is present. No signs of infection Progress Results/Orders Results/Orders Orders - MACK JONES MD Urinalysis, Cult If Indicated (02/08/25 23:25) Chest,Single View (02/08/25 23:43) Monitor (02/08/25 23:25) Saline Lock (02/08/25 23:25) Oxygen (02/08/25 23:25) Hs Troponin I W Calculations (02/09/25 02:25) Completed Orders - MACK JONES MD Cbc/Diff (02/08/25 23:25) BMP (02/08/25 23:25) Lipase (02/08/25 23:25) CMP (02/08/25 23:25) Chest,Single View (02/08/25 23:43) PBNP (02/08/25 23:25) Electrocardiogram (02/08/25 23:25) Hs Troponin I W Calculations (02/08/25 23:25) Hs Troponin I W Calculations (02/09/25 01:25) Ondansetron Disint. Tablet (Zofran Odt T (02/09/25 01:00) Vital Signs 02/08/25 02/09/25 02/09/25 23:18 00:39 00:47 Temp 97.7 97.7 Pulse 72 63 Resp 17 10 B/P (MAP) 138/60 142/83 (102) Pulse Ox 96 96 O2 Flow Rate 0 0 Laboratory Tests Test 02/08/25 23:35 02/09/25 00:27 White Blood Count 8.1 Red Blood Count 5.15 Hemoglobin 14.0 Hematocrit 41.4 L Mean Corpuscular Volume 80.4 Mean Corpuscular Hemoglobin 27.1 Mean Corpuscular Hemoglobin Concent 33.8 Red Cell Distribution Width 15.7 H Platelet Count 193 Mean Platelet Volume 8.4 Neutrophils (%) (Auto) 53.8 Lymphocytes (%) (Auto) 34.2 Monocytes (%) (Auto) 8.6 Eosinophils (%) (Auto) 2.6 Basophils (%) (Auto) 0.8 Neutrophils # (Auto) 4.3 Lymphocytes # (Auto) 2.8 Monocytes # (Auto) 0.7 Eosinophils # (Auto) 0.2 Basophils # (Auto) 0.1 CBC Comment Sodium Level 138 Potassium Level 3.8 Chloride Level 104 Carbon Dioxide Level 23.2 L Anion Gap 11 Blood Urea Nitrogen 36 H Creatinine 1.42 H Estimated GFR/1.73 m2 50 BUN/Creatinine Ratio 25.4 H Glucose Level 145 H Calcium Level 8.6 Total Bilirubin 0.4 Aspartate Amino Transf (AST/SGOT) 14 Alanine Aminotransferase (ALT/SGPT) 14 Alkaline Phosphatase 89 Troponin I High Sensitivity 11 11 Pro-B-Type Natriuretic Peptide 119 Total Protein 7.3 Albumin 3.4 Globulin 3.9 Albumin/Globulin Ratio 0.9 L Lipase 32 Chemistry Comments Troponin I High Sens Percent Delta 0 Troponin I Hi Sens Absolute Change 0 EKG/XRAY/CT/US/VASC/MRI EKG : Additional Comment EKG interpreted by myself shows time of 2318, rate 83, sinus rhythm, normal axis, bigeminy, no ST changes Chest X-Ray : Additional Comments Exam: CHEST,SINGLE VIEW CHEST RADIOGRAPH Indication: CP Technique: 1 view Comparison: DI CHEST,SINGLE VIEW on DOS: 12/16/24, DI CHEST,SINGLE VIEW on DOS: 11/26/24, DI CHEST,SINGLE VIEW on DOS: 11/07/24, DI CHEST,SINGLE VIEW on DOS: 12/26, DI CHEST,SINGLE VIEW on DOS: 12/07/23 FINDINGS: Lines and Tubes: None Lungs/Pleura: No focal consolidation, pleural effusion or pneumothorax. Similar interstitial prominence. Cardiomediastinum: Unremarkable. Other: No acute osseous abnormality. IMPRESSION: 1. No significant change from prior exam. Interstitial prominence suggesting edema. Medical Decision Making Findings Patient presents to the emergency room for evaluation of some abdominal symptoms however his chief complaint changes from time to time. Observing patient from outside the exam room he is sleeping comfortably however after speaking with him becomes pretty dramatic. I suspect he may have ulterior motives for his visit to the emergency room, nonetheless as he is considered high risk labs were ordered which were reassuring for troponins negative x2. No SI/HI Departure Disposition: 01 HOME / SELF CARE / HOMELESS Impression: Primary Impression: Chest pain Condition: Stable Discharge Instructions: General Discharge Instructions, Nonspecific Chest Pain, Adult Referrals: NO PRIMARY CARE PROVIDER (PCP) Signature Scribe Signature: No scribe Attestation: The note accurately reflects work and decisions made by me.Mack Jones MD 02/09/25 01:15 MACK JONES MD Feb 09, 2025 01:02
[2025-02-09] MEDS: ondansetron 4mg rapidly disintigrating tab PO ONE (01:44)
[2025-02-09 02:05] VITALS: BP 126/70; PULSE 78; RESP 14; TEMP 97.7; O2SAT 98
== END 2025-02-09 02:10 | disposition home or self-care (01) ==
LOC: ER 23:06
DX: R07.9 Chest pain, unspecified (principal); R10.9 Unspecified abdominal pain; R06.02 Shortness of breath; E11.9 Type 2 diabetes mellitus without complications; E78.00 Pure hypercholesterolemia, unspecified; I10 Essential (primary) hypertension; I48.91 Unspecified atrial fibrillation; J44.9 Chronic obstructive pulmonary disease, unspecified; Z88.2 Allergy status to sulfonamides; Z88.8 Allergy status to other drugs, medicaments and biological substances; G89.29 Other chronic pain; Z87.891 Personal history of nicotine dependence; Z87.442 Personal history of urinary calculi; Z89.512 Acquired absence of left leg below knee
CPT/HCPCS: 36415; 71045; 80053; 83690; 83880; 84484; 85025; 93005; 99285

== ENCOUNTER 2025-03-26 13:03 | Emergency (ER) | payer MEDICARE, MEDICAID ==
[~2025-03-26] VITALS: Ht 177.8 cm; Wt 90.9 kg
[~2025-03-26 13:03] MED LIST changes: -BUPR1FIL3 SL
[2025-03-26 13:07] VITALS: TEMP 96.7
--- NOTE | 2025-03-26 13:19 | Physician Documentation ---
History of Present Illness ~ Chief Complaint: Mental Health Eval Stated Complaint: SI Time Seen by MD: 13:44 Primary Medical Doctor: Dr. BOWDEN Source: patient, other Mode of Arrival: Wheelchair Exam Limitations: no limitations HPI 64-year-old male brought in by a security representative of [employer] for initi ally suicidal thoughts without plan patient was going there to work on going through a bridge program for Suboxone. Patient states that he does not use drugs anymore. Patient is currently living in a hotel. Patient is tearful throughout the assessment Medication Reconciliation Allergies: Coded Allergies: Sulfa (Sulfonamide Antibiotics) (Verified Allergy, Unknown, 03/26/25) Scheduled Apixaban (Eliquis), 5 MG PO BID Buprenorphine Hcl (Buprenorphine Hcl), 2 TAB SL TID, (Reported) Buprenorphine Hcl/Naloxone Hcl (Suboxone 8 Mg-2 Mg Sl Film), 1 STRIP SL DAILY Bupropion HCl (Bupropion Xl), 1 TAB PO DAILY, (Reported) Clopidogrel Bisulfate (Clopidogrel), 1 TAB PO DAILY, (Reported) Diltiazem HCl (Cartia Xt), 180 MG PO DAILY, (Reported) Duloxetine HCl (Duloxetine HCl), 1 CAP PO DAILY, (Reported) Empagliflozin (Jardiance), 1 TAB PO DAILY Furosemide (Furosemide), 40 MG PO QAM Insulin Glargine,Hum.rec.anlog (Lantus), 40 UNITS SQ HS, (Reported) Insulin Lispro (Insulin Lispro), 4-12 UNITS SQ TID, (Reported) Lisinopril (Lisinopril), 5 MG PO DAILY, (Reported) Metformin HCl (Metformin HCl), 500 MG PO TID, (Reported) Metoprolol Tartrate (Metoprolol Tartrate), 0.5 TAB PO BID, (Reported) Pregabalin (Pregabalin), 1 CAP PO BID, (Reported) Ropinirole Hcl (Ropinirole Hcl), 1 TAB PO TID, (Reported) Saxagliptin Hydrochloride (Onglyza), 1 TABLET PO DAILY, (Reported) Simvastatin* (Zocor*), 1 TAB PO HS, (Reported) Spironolactone (Spironolactone), 50 MG PO QAM, (Reported) [tamsulosin capsule], 0.4 MG PO HS Scheduled PRN Oxycodone Hcl/Acetaminophen (Oxycodone-Acetaminophen 10-325), 1 TAB PO TID PRN for pain, (Reported) Pregabalin (LYRICA capsule), 1 CAP PO BID PRN for pain, (Reported) Tizanidine Hcl (Zanaflex), 1 TAB PO BID PRN for muscle spasms, (Reported) Miscellaneous Medications Insulin Glargine,Hum.rec.anlog* (Lantus*), SQ, (Reported) Past Medical History Past Medical History: Atrial Fibrillation, High Cholesterol, Hypertension, COPD, Kidney Stones, Diabetes, Thyroid (unspecified), Chronic Back Pain Past Surgical History: other Other Past Surgical History: Left below the knee amputation Alcohol Use: Occasionally Drug Use: methamphetamine Lives In: Home Past Social History: Quit smoking 2015 Physical Exam Vital Signs: Temperature: 96.7, Heart Rate: 72, Respiratory Rate: 16, BP: 214/114, Pulse Oximetry: 99, Weight: 90.910 Oxygen Flow Rate: 0 Physical Exam General: Alert, tearful mild emotional distress HEENT: moist mucous membranes. Neck: Full range of motion. Respiratory: No respiratory distress speaking in full sentences Chest: No accessory muscle use. Cardiovascular: Appears well perfused Neurologic: Oriented x4. Psychiatric: sad Skin: Normal color, warm and dry. No edema, no ecchymosis. Bilateral BKA Progress Results/Orders Results/Orders Completed Orders - SOLOMON LOPEZ [employer] Buprenorphine/Naloxone Sl Film (Suboxone (03/26/25 14:45) Medications Received in ER Medications (Trade) Dose Ordered Sig/Sandy Route PRN Reason Start Time Stop Time Status Last Admin Dose Admin (Suboxone 8MG-2MG SL film) 1 film NOW ONCE SL 03/26/25 14:45 03/26/25 14:46 DC 03/26/25 15:31 1 FILM Vital Signs 03/26/25 03/26/25 03/26/25 13:07 14:34 15:53 Temp 96.7 Pulse 72 68 Resp 16 16 16 B/P (MAP) 214/114 140/92 Pulse Ox 99 99 O2 Flow Rate 0 Laboratory Tests Test 03/26/25 13:45 03/26/25 13:53 White Blood Count 6.6 Red Blood Count 5.13 Hemoglobin 14.0 Hematocrit 41.8 L Mean Corpuscular Volume 81.4 Mean Corpuscular Hemoglobin 27.2 Mean Corpuscular Hemoglobin Concent 33.4 Red Cell Distribution Width 14.0 Platelet Count 249 Mean Platelet Volume 8.0 Neutrophils (%) (Auto) 64.9 Lymphocytes (%) (Auto) 26.4 Monocytes (%) (Auto) 6.8 Eosinophils (%) (Auto) 1.3 Basophils (%) (Auto) 0.6 Neutrophils # (Auto) 4.3 Lymphocytes # (Auto) 1.7 Monocytes # (Auto) 0.4 Eosinophils # (Auto) 0.1 Basophils # (Auto) 0.0 CBC Comment Sodium Level 137 Potassium Level 4.8 Chloride Level 100 Carbon Dioxide Level 28.8 Anion Gap 8 Blood Urea Nitrogen 31 H Creatinine 1.16 H Estimated GFR/1.73 m2 63 BUN/Creatinine Ratio 26.7 H Glucose Level 232 H Calcium Level 9.1 Albumin 3.3 L Thyroid Stimulating Hormone (TSH) 1.61 Chemistry Comments Ethyl Alcohol Level < 10 SARS-CoV-2 Antigen (Rapid) Negative Medical Decision Making Findings Interviewed this patient at length and he did not report any plan to harm himself. Primary complaint is that he was out of Suboxone and that he feels like he is in withdrawals. Offered to bridge him starting today and he verbalized that he wanted to pursue this plan of starting Suboxone and maintaining his opioid use program. Not present has a danger to himself based on my interview. I took him off of 1798 as he does not have any intention to harm herself nor does have a plan I am sending him Suboxone to his pharmacy and discharge in Differential Dx:Considerations: Include: Alcohol abuse, Anxiety, Bipolar disorder, Conversion disorder, Depression, Encephaloathy, Homicidal, Panic disorder, Personality disorder, Schizophrenia, Substance abuse, Suicidal, Other Departure Disposition: 01 HOME / SELF CARE / HOMELESS Impression: Primary Impression: Opioid abuse Discharge Instructions: Opioid Use Disorder Referrals: NO PRIMARY CARE PROVIDER (PCP) Prescriptions Buprenorphine Hcl/Naloxone Hcl (Suboxone 8 Mg-2 Mg Sl Film) 8 Mg-2 Mg Film 1 STRIP SL DAILY for 30 Days, #30 STRIP Prov: SOLOMON LOPEZ NP 03/26/25 Signature Scribe Signature: f Attestation: Scribed for Solomon Lopez Np by Solomon Bowling NP . 03/26/25 19:56 JOSE ROBERTO POLANCO NP Mar 26, 2025 13:19 SOLOMON LOPEZ NP Mar 26, 2025 15:04
[2025-03-26 14:19] LABS: MEAN PLATELET VOLUME 8.0 FL (7.4-10.4); RED CELL DISTRIBUTION WIDTH 14.0 % (11.5-14.5)
[2025-03-26 14:40] LABS: CREATININE 1.16 MG/DL (0.60-1.10); TOTAL CARBON DIOXIDE 28.8 MMOL/L (24-32); eCRCL 65 ML/MIN; eGFR 63 ML/MIN
[2025-03-26 14:48] LABS: ETHANOL < 10 MG/DL (<10)
[2025-03-26] MEDS ORDERED: BUPR1FIL3 SL (14:59)
[2025-03-26] MEDS: buprenorphine/naloxone 8MG-2MG SUBlingual film SL ONE (15:31)
[2025-03-26 15:53] VITALS: BP 140/92; PULSE 68; RESP 16; O2SAT 99
== END 2025-03-26 15:55 | disposition home or self-care (01) ==
LOC: ER 13:04
DX: F11.10 Opioid abuse, uncomplicated (principal); J44.9 Chronic obstructive pulmonary disease, unspecified; I48.91 Unspecified atrial fibrillation; I10 Essential (primary) hypertension; G89.29 Other chronic pain; F15.90 Other stimulant use, unspecified, uncomplicated; E78.00 Pure hypercholesterolemia, unspecified; E11.9 Type 2 diabetes mellitus without complications; Z89.512 Acquired absence of left leg below knee; Z79.899 Other long term (current) drug therapy; Z79.82 Long term (current) use of aspirin; Z72.89 Other problems related to lifestyle; Z59.01 Sheltered homelessness; Z87.442 Personal history of urinary calculi; Z88.2 Allergy status to sulfonamides; Z20.822 Contact with and (suspected) exposure to COVID-19
CPT/HCPCS: 36415; 80048; 84443; 85025; 87811; 99283; G0480; 80320; 99284

== ENCOUNTER 2025-05-02 05:34 | Emergency (ER) | payer MEDICARE, MEDICAID ==
[~2025-05-02] VITALS: Ht 152.4 cm; Wt 100.0 kg
[~2025-05-02 05:34] MED LIST changes: +ATOR40TA PO; -CLOP75TA34 PO; -DILT180C53 PO; +DULO30CA52 PO; -DULO60CA65 PO; -PREG100C56 PO; -SIMV-42 PO; +TAMS-55 PO; -tamsulosin capsule PO
[2025-05-02 05:35] VITALS: TEMP 97.6
--- NOTE | 2025-05-02 05:44 | ELECTROCARDIOGRAPH REPORT ---
[facility] Test Date: 2025-05-02 Test Time: 05:37:05 Pat Name: AVTAR JONES Department: EMERGENCY ROOM Room: Gender: M Post Commander: LENO : 1960 Requested By: VIVIAN PRINGLE Order Number: [id number] Reading MD: Dr. GENOVEVA Johnson Measurements Intervals [place] Rate: 94 P: 40 ID: [id number] QRS: -27 QRSD: 87 T: 33 QT: 375 QTc: 469 Interpretive Statements Sinus tachycardia Atrial premature complexes Left ventricular hypertrophy Baseline wander in lead(s) I,II,aVR Electronically Signed On 05-03-2025 12:54:[address] GENOVEVA Johnson Please click the below link to view image of tracing.
--- NOTE | 2025-05-02 05:44 | Physician Documentation ---
History of Present Illness ~ Chief Complaint: Chest Pain Stated Complaint: CP Time Seen by MD: 05:43 Primary Medical Doctor: Dr. BOWDEN HPI 64-year-old male, history of atrial fibrillation/SVT, who presents with an episode of chest pain Per EMS, the patient awoke from sleep with chest pain about an hour ago. When they arrived he was in SVT with a heart rate in the 180s. He was given 6 mg of adenosine, and converted back to what they thought was atrial fibrillation. Initially he did report severe chest pain. He was given aspirin and later 1 nitroglycerin. Here now in the ED, the patient tells me that he has been feeling ill over the past couple of days. He tells me that when he woke up this morning he was having severe generalized chest pain. He reports a history of SVT in similar pain in the past. He says this was worse than any past episode. Currently he reports feeling generally weak. He reports having mild lightheadedness. He denies any current chest pain. He does report mild nausea. No abdominal pain. He did take all of his medications yesterday. No other specific symptoms at this time Medication Reconciliation Allergies: Coded Allergies: Sulfa (Sulfonamide Antibiotics) (Verified Allergy, Unknown, 03/26/25) Scheduled Apixaban (Eliquis), 5 MG PO BID Atorvastatin Calcium* (Lipitor*), 1 TAB PO DAILY Buprenorphine Hcl (Buprenorphine Hcl), 2 TAB SL TID, (Reported) Bupropion HCl (Bupropion Xl), 1 TAB PO DAILY, (Reported) Duloxetine HCl (Duloxetine HCl), 1 CAP PO DAILY, (Reported) Empagliflozin (Jardiance), 1 TAB PO DAILY Furosemide (Furosemide), 40 MG PO QAM Insulin Glargine,Hum.rec.anlog (Lantus), 40 UNITS SQ HS, (Reported) Insulin Lispro (Insulin Lispro), 4-12 UNITS SQ TID, (Reported) Lisinopril (Lisinopril), 5 MG PO DAILY, (Reported) Metformin HCl (Metformin HCl), 2 TAB PO BID, (Reported) Metoprolol Tartrate (Metoprolol Tartrate), 100 MG PO DAILY, (Reported) Pregabalin (LYRICA capsule), 2 CAP PO Q12H, (Reported) Ropinirole Hcl (Ropinirole Hcl), 3 TAB PO HS, (Reported) Saxagliptin Hydrochloride (Onglyza), 1 TABLET PO DAILY, (Reported) Spironolactone (Spironolactone), 50 MG PO QAM, (Reported) Tamsulosin Hcl* (Flomax*), 1 CAP PO HS, (Reported) Scheduled PRN Oxycodone Hcl/Acetaminophen (Oxycodone-Acetaminophen 10-325), 1 TAB PO TID PRN for pain, (Reported) Pregabalin (LYRICA capsule), 2 CAP PO BID PRN for pain, (Reported) Tizanidine Hcl (Zanaflex), 1 TAB PO BID PRN for muscle spasms, (Reported) Miscellaneous Medications Insulin Glargine,Hum.rec.anlog* (Lantus*), SQ, (Reported) Past Medical History Past Medical History: Atrial Fibrillation, High Cholesterol, Hypertension, COPD, Kidney Stones, Diabetes, Thyroid (unspecified), Chronic Back Pain Past Surgical History: other Other Past Surgical History: Left below the knee amputation Alcohol Use: Occasionally Drug Use: methamphetamine Lives In: Home Past Social History: Quit smoking 2015 Review of Systems Constitutional: Reports: weakness; Denies: fever Cardiovascular: Reports: chest pain, lightheadedness, palpitations Physical Exam Vital Signs: Temperature: 97.6, Source: Oral, Heart Rate: 97, Respiratory Rate: 9, BP: 122/77, Pulse Oximetry: 97, Weight: 100.000 Oxygen Flow Rate: 0 Physical Exam General: This is a ill-appearing middle-aged man, diaphoretic HEENT: Atraumatic, oropharynx appears dry Heart: Irregular rhythm, heart rate around 100 Lungs: Diminished breath sounds bilateral but overall clear, normal work of breathing, normal oxygen saturation on room air Abdomen: Soft, nondistended, nontender all quadrants Skin: Diaphoretic and clammy Neuro: Alert and oriented Psychiatric: Appears tired, slow to answer questions, but is cooperative with exam Progress Results/Orders Results/Orders Orders - VIVIAN PRINGLE MD Chest,Single View (05/02/25 05:43) Monitor (05/02/25 05:43) Saline Lock (05/02/25 05:43) Oxygen (05/02/25 05:43) Completed Orders - VIVIAN PRINGLE MD Chest,Single View (05/02/25 05:43) Cbc/Diff (05/02/25 05:43) BMP (05/02/25 05:43) PBNP (05/02/25 05:43) Electrocardiogram (05/02/25 05:43) Hs Troponin I W Calculations (05/02/25 05:43) Hs Troponin I W Calculations (05/02/25 07:43) Hs Troponin I W Calculations (05/02/25 08:43) MG (05/02/25 05:40) Vital Signs 05/02/25 05/02/25 05/02/25 05/02/25 05:35 05:51 06:33 07:26 Temp 97.6 Pulse 97 89 77 Resp 9 16 12 B/P (MAP) 122/77 101/62 (75) 136/76 (96) Pulse Ox 97 96 97 O2 Flow Rate 0 0 0 05/02/25 05/02/25 05/02/25 05/02/25 08:20 08:26 09:38 10:45 Pulse 79 82 72 Resp 12 13 22 15 B/P (MAP) 126/69 (88) 146/84 (104) 123/66 (85) Pulse Ox 96 96 O2 Flow Rate 0 0 0 05/02/25 05/02/25 11:49 12:14 Pulse 80 72 Resp 17 15 B/P (MAP) 148/77 (100) 166/84 Pulse Ox 98 O2 Flow Rate 0 Laboratory Tests Test 05/02/25 05:40 05/02/25 07:28 05/02/25 08:59 White Blood Count 6.6 Red Blood Count 4.99 Hemoglobin 13.8 L Hematocrit 40.7 L Mean Corpuscular Volume 81.4 Mean Corpuscular Hemoglobin 27.7 Mean Corpuscular Hemoglobin Concent 34.0 Red Cell Distribution Width 14.1 Platelet Count 193 Mean Platelet Volume 8.6 Neutrophils (%) (Auto) 55.6 Lymphocytes (%) (Auto) 36.6 Monocytes (%) (Auto) 6.0 Eosinophils (%) (Auto) 1.1 Basophils (%) (Auto) 0.7 Neutrophils # (Auto) 3.6 Lymphocytes # (Auto) 2.4 Monocytes # (Auto) 0.4 Eosinophils # (Auto) 0.1 Basophils # (Auto) 0.0 CBC Comment Sodium Level 138 Potassium Level 3.9 Chloride Level 104 Carbon Dioxide Level 26.2 Anion Gap 8 Blood Urea Nitrogen 23 H Creatinine 1.30 H Estimated GFR/1.73 m2 55 BUN/Creatinine Ratio 17.7 Glucose Level 348 H Calcium Level 8.7 Magnesium Level 1.3 L Troponin I High Sensitivity 20 32 43 Pro-B-Type Natriuretic Peptide 264 H Albumin 3.3 L Chemistry Comments Troponin I High Sens Percent Delta 60 34 Troponin I Hi Sens Absolute Change 12 11 Re-Evaluation Re-Evaluation #1: Re-Evaluation Time: 07:13 Progress Assumed care of patient at change of shift, from Dr. Pringle. He was complainin g of chest pain and had SVT with rapid heart rate, return to normal sinus rhythm after administration of adenosine in the ambulance. He has a history of similar. Normal troponin initially, awaiting repeat troponin. Laboratory data has returned. Pt feels tired and has some residual chest pain, which he has had before after SVT episode. Also has hx CAD with stent, no cardiology f/u "for years" Re-Evaluation #2: Re-Evaluation Time: 08:13 Progress Pt feeling anxious. Anxiolytic given. Awaiting 3rd troponin; first two values normal. Re-Evaluation #3: Re-Evaluation Time: 10:57 Progress Patient has remained in a normal sinus rhythm and comfortable since his arrival. Three serial troponins have show no evidence for acute cardiac ischemia. No return to SVT. Patient is stable for discharge, we will follow up with PMD for further outpatient evaluation and management and referral to Cardiology. EKG/XRAY/CT/US/VASC/MRI EKG : Additional Comment I personally interpreted the EKG and this shows: Sinus tachycardia with PACs, rate 94, QTC 469. No STEMI Chest X-Ray : Additional Comments I personally interpreted the x-ray, and it shows: Cardiomegaly, mild pulmonary edema, no focal consolidation Medical Decision Making Additional information obtaine: other Findings Reviewed EMS rhythm strip Heart Score: 5 Differential Dx:Considerations: Include: angina, aortic dissection, chest wall pain, cholelithiasis, CHF, costochondritis, myocardial infarction, pneumothorax, pulmonary embolus Additional Information The patient presents with chest pain and reported was in SVT from EMS, converted with adenosine. Here in the ED he reports generalized weakness but denies any current chest pain. He appears to be in sinus rhythm with PACs. Chest x-ray with mild congestive heart failure type changes but no other acute abnormality. The patient was signed out at shift change, pending laboratory testing and re- evaluation. Departure Time of Disposition: 11:00 Disposition: 01 HOME / SELF CARE / HOMELESS Impression: Primary Impression: SVT (supraventricular tachycardia) Additional Impression: Chest pain Qualified Codes: R07.9 - Chest pain, unspecified Condition: Stable Discharge Instructions: Palpitations Additional Instructions: Please continue your regular medications. It is very important that you follow- up with your doctor within the next week to re-evaluate, and to start working on a referral to Cardiology for ongoing care. Return to the emergency department if you have recurrent SVT or palpitations, increasing chest pain, or any other concerns. Avoid stimulants such as caffeine and nicotine. Referrals: NO PRIMARY CARE PROVIDER (PCP) Education Educated: Patient Educated regarding: diagnosis, treatment Signature Scribe Signature: madison Attestation: VIVIAN Leon MD May 02, 2025 05:44 NISA RIVERS MD May 02, 2025 07:14
[2025-05-02 06:08] LABS: MEAN PLATELET VOLUME 8.6 FL (7.4-10.4); RED CELL DISTRIBUTION WIDTH 14.1 % (11.5-14.5)
--- NOTE | 2025-05-02 06:13 | RADIOLOGY REPORT ---
MEDICAL RECORDS NUMBER: [id number] PROCEDURE: DI CHEST,SINGLE VIEW DATE: 05/02/2025 05:58 AM HISTORY: CP Views:1 COMPARISON: DI CHEST,SINGLE VIEW on DOS: 04/12/25, DI CHEST,SINGLE VIEW on DOS: 02/26/25, DI CHEST,SINGLE VIEW on DOS: 02/08/25, DI CHEST,SINGLE VIEW on DOS: 12/16/24, DI CHEST,SINGLE VIEW on DOS: 11/26/24 FINDINGS/IMPRESSION: Lungs: Diffuse minor chronic changes of the lungs are noted. No acute lung pathology is seen. Mediastinum: Mediastinal structures appear unremarkable... Skeletal: The skeletal structures appear unremarkable.
[2025-05-02 06:16] LABS: CREATININE 1.30 MG/DL (0.60-1.10); PRO BRAIN NATRIURETIC PEPTIDE 264 PG/ML (0-125); TOTAL CARBON DIOXIDE 26.2 MMOL/L (24-32); eCRCL 40 ML/MIN; eGFR 55 ML/MIN
[2025-05-02 12:14] VITALS: BP 166/84; PULSE 72; RESP 15; O2SAT 98
== END 2025-05-02 12:23 | disposition home or self-care (01) ==
LOC: ER 05:35
DX: I47.10 Supraventricular tachycardia, unspecified (principal); R07.9 Chest pain, unspecified; E78.00 Pure hypercholesterolemia, unspecified; E11.9 Type 2 diabetes mellitus without complications; I11.0 Hypertensive heart disease with heart failure; I50.9 Heart failure, unspecified; G89.29 Other chronic pain; F15.90 Other stimulant use, unspecified, uncomplicated; I48.91 Unspecified atrial fibrillation; J44.9 Chronic obstructive pulmonary disease, unspecified; Z88.2 Allergy status to sulfonamides; Z87.442 Personal history of urinary calculi; Z89.512 Acquired absence of left leg below knee; Z86.79 Personal history of other diseases of the circulatory system; Z79.899 Other long term (current) drug therapy; Z79.4 Long term (current) use of insulin; Z72.89 Other problems related to lifestyle
CPT/HCPCS: 36415; 71045; 80048; 83735; 83880; 84484; 85025; 93005; 99285